=== PATIENT | female | born 1945 | race Caucasian/White ===

== ENCOUNTER → 2016-09-05 | Outpatient (CLI) | payer OTHER ==
[2015-02-01 11:30] VITALS: BP 138/66
[~2016-09-05] MED LIST: ALBU8.5H6 INH; AMLO10TA2 PO; ASPI-482 PO; ASPI81TA2 PO; ATOR40TA59 PO; BENZ100C2 PO; CALC-507 PO; CYCL10TA2 PO; CYCL5TAB PO; DULO60CA44 PO; DULO60CA6 PO; EZET1TAB4 PO; FEXO180T81 PO; FISH1CAP PO; FOLI1TAB16 PO; FURO20TA3 PO; GABA-585 PO; GLYB5TAB3 PO; GUAI600T38 PO; HYDR-2762 PO; HYDR-971 PO; INSU100I17 SQ; INSU100V13 SQ; INSU100V8 SQ; LABE100T3 PO; LEVO500T8 PO; LOSA1TAB17 PO; METF500T4 PO; MULT-509 PO; OMEG-33 PO; OXYB5TAB7 PO
--- NOTE | 2016-09-05 15:05 | RAD ---
PROCEDURE MRI lumbar spine without contrast. HISTORY Increasing back pain with bilateral radiculopathy for 3 months TECHNIQUE Multiplanar, multi sequential non contrast MR imaging was performed of the lumbar spine. COMPARISON October 14, 2014 FINDINGS Lumbar vertebral body stature is unchanged. There is now grade 1 anterior spondylolisthesis at L3-4. There is very minimal posterior subluxation L1 relative to L2 and negligible posterior subluxation L2 relative to L3. There is again advanced degenerative disc disease at L4-5 and to a lesser degree at L5-S1, somewhat greater degree of moderate degenerative disc disease at L3-4 to a lesser degree at L2-3 and L1-2. Conus terminates at L1. There is new mild L3-4 endplate edema and minimally of the superior, posterior corner of L3 probably reactive/degenerative in etiology. There is very mild lumbar levoscoliosis. T12-L1: Spinal canal and neural foramina are adequate. There is mild buckling of the ligamentum flavum. L1-2: There is again disc osteophyte complex more eccentric into the far left lateral recess and inferior left neural foramina also posterior bulge. There is mild to moderate buckling of the ligamentum flavum and mild facet hypertrophic change. There is overall mild to moderate narrowing of the spinal canal with left greater than right lateral recess stenosis. There is likely mild narrowing of the left neural foramen, right neural foramen overall adequate. L2-L3: There is fairly severe buckling of the ligamentum flavum and mild to moderate facet degenerative change. There is more prominent posterior bulge/protrusion. There is increased severe spinal stenosis with near complete effacement of subarachnoid space. Neural foramina are overall adequate. L3-4: There has been interval posterior decompression. There is moderate facet hypertrophic change greater on the right. There is posterior bulge/protrusion. Previously there was a greater degree of spinal stenosis, residual mild to moderate narrowing of the thecal sac. There is mild narrowing of the inferior neural foramina. L4-5: There has been interval posterior decompression. There is minimal posterior bulge. There is mild narrowing of the far lateral recesses bilaterally, central canal now adequate. There is very minimal narrowing of the inferior neural foramina. L5-S1: There has been posterior decompression. There is again disc osteophyte complex and superimposed broad bulge/protrusion. There is again contact of the descending left S1 nerve root without displacement. There is again moderate narrowing of the left neural foramen with contact undersurface exiting left L5 nerve root, mild narrowing on the right. IMPRESSION 1. Comparing with the 2015 exam, there is increased severe spinal stenosis L2-3, mild to moderate spinal stenosis at L1-L2. There has been posterior decompression L3-4 to L5-S1. 2. There is multilevel neural foramina compromise as stated greatest on the left at L5-S1. 3. There is now grade 1 anterior spondylolisthesis at L3-4, minimal posterior subluxation L1 relative to L2 and L2 relative to L3. There is multilevel lumbar facet degenerative change. 4. There is again more advanced degenerative disc disease at L4-5 and to a lesser degree at L5-S1. There is greater degree of moderate degenerative disc disease at L3-4, to a lesser degree at L1-L2 and L2-3. L3-4 endplate edema is likely reactive/degenerative in etiology. Electronically signed by: Emile Bledsoe MD (September 05, 2016 15:03:28)
== END | disposition home or self-care (01) ==
LOC: MRI 13:39
PROVIDERS: ATTEND Internal Medicine
DX: M48.06 Spinal stenosis, lumbar region (principal); M54.9 Dorsalgia, unspecified; M54.30 Sciatica, unspecified side
CPT/HCPCS: 72148

== ENCOUNTER 2016-09-13 17:00 | Inpatient (IN) | payer OTHER ==
[~2016-09-13] VITALS: Ht 144.8 cm; Wt 77.3 kg
[2016-09-13] MEDS ORDERED: IV NORMAL SALINE 1000ML BAG 1,000 ML IV SCH (17:20)
[2016-09-13 17:30] LABS: BASO # 0.1 x10^3/uL (0.0-0.2); BASO % 1 % (0-3); EOS % 2 % (0-3); HEMATOCRIT 39.1 % (36.0-47.0); HEMOGLOBIN 13.3 g/dL (12.0-15.5); LYMPH # 1.7 x10^3/uL (1.0-4.8); LYMPH % 20 % (24-48); MEAN CORPUSCULAR HEMOGLOBIN 33 pg (25-35); MEAN CORPUSCULAR HGB CONC 34 g/dL (31-37); MEAN CORPUSCULAR VOLUME 97 fL (79-100); MONO % 8 % (0-9); NEUT % 69 % (31-73); PLATELET COUNT 266 x10^3/uL (140-400); RED BLOOD COUNT 4.05 x10^6/uL (3.50-5.40); RED CELL DISTRIBUTION WIDTH 14.9 % (11.5-14.5); WHITE BLOOD COUNT 8.5 x10^3/uL (4.0-11.0)
[2016-09-13] MEDS ORDERED: 0.9 % SODIUM CHLORIDE 10 ML DISP.SYRIN. IV PRN (17:30)
[2016-09-13 17:43] LABS: CALCIUM 9.5 mg/dL (8.5-10.1); CREATININE 1.6 mg/dL (0.6-1.0); GFR 31.7; POTASSIUM 3.7 mmol/L (3.5-5.1)
[2016-09-13 17:49] LABS: ALBUMIN 3.6 g/dL (3.4-5.0); TOTAL BILIRUBIN 0.7 mg/dL (0.2-1.0); TOTAL PROTEIN 7.1 g/dL (6.4-8.2)
--- NOTE | 2016-09-13 18:04 | RAD ---
PROCEDURE CT head without contrast dated 09/13/2016. HISTORY Generalized weakness TECHNIQUE Contiguous axial imaging of the head was performed from skull base to vertex. No contrast administered.Exposure: One or more of the following individualized dose reduction techniques were utilized for this exam: 1. Automated exposure control. 2. Adjustment of the mA and/or kV according to patient size. 3. Use of iterative reconstruction technique. COMPARISON None. FINDINGS Ventricles and sulci mildly prominent for age. No midline shift or mass effect. Brain parenchyma is of normal attenuation. No hemorrhage or extra-axial collection. Posterior fossa and brainstem unremarkable. Visualized paranasal sinuses and mastoid air cells are clear. No acute calvarial abnormality. IMPRESSION - No evidence of acute intracranial abnormality. - Mild atrophy for age. Electronically signed by: Aren Cline (September 13, 2016 18:03:23)
--- NOTE | 2016-09-13 18:32 | PHYS DOC ---
Past Medical History Past Medical History: Diabetes-Type II, High Cholesterol, Hypertension, Renal Disease Past Surgical History: Appendectomy, Hysterectomy, Lumbar Laminectomy, Tonsillectomy Additional Past Surgical Histo: right foot, right rotator cuff Adult General Chief Complaint Chief Complaint: OTHER COMPLAINTS [facility] HPI This is a pleasant 71-year-old female who experienced a episode of general is weakness more in her lower extremities and upper last at about 11 PM. Patient states that she was over working in the yard as she is trying to move from her daughter's home to assisted living facility. 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 The episode only lasted about 5-10 minutes according to family there is no general seizure activity the patient was not post ictal and no bowel or bladder con's the event. Patient was lucid at the time of the event was over denying any abdominal pain chest pain or other focal neurologic problems. Patient denied from speaking vision or with sensation. Family ran the case by her primary care doctor earlier this afternoon who advised her to come to the ER for an evaluation. Patient feels back to baseline with the exception of generalized weakness. She denies any change in medications denies any serious problem with her sugars. Patient denies any fever, recent URI symptoms, recent travel, recent antibiotics, or trauma Dr. Abrams is PCP Review of Systems Review of Systems Constitutional: Complaint of generalized weakness Eyes: Denies change in visual acuity, redness, or eye pain [] HENT: Denies nasal congestion or sore throat [] Respiratory: Denies cough or shortness of breath [] Cardiovascular: No additional information not addressed in HPI [] GI: Denies abdominal pain, nausea, vomiting, bloody stools or diarrhea [] : Denies dysuria or hematuria [] Musculoskeletal: Denies back pain or joint pain [] Integument: Denies rash or skin lesions [] Neurologic: Denies headache, no focal weakness or sensory changes, changes in vision changes in speech bowel or bladder incontinence or facial changes. Patient does complain of bilateral lower extremity weakness in her legs. NIIHSS 0 Endocrine: Denies polyuria or polydipsia [] Current Medications Current Medications Current Medications Medications (Trade) Dose Ordered Sig/Reynaldo Start Time Stop Time Status Last Admin Dose Admin Sodium Chloride 1,000 ml @ 1,000 mls/hr Q1H 09/13/16 17:20 09/13/16 18:19 DC Sodium Chloride (Normal Saline Flush) 10 ml QSHIFT PRN 09/13/16 17:30 Allergies Allergies Allergies Coded Allergies Type Severity Reaction Last Updated Verified NSAIDS (Non-Steroidal Anti-Inflamma Allergy Intermediate 09/13/16 Yes aspirin Allergy Intermediate 10/17/14 Yes diphenhydramine Allergy Intermediate hives 09/13/16 Yes morphine Allergy Intermediate 10/15/14 Yes Penicillins Allergy Unknown 09/13/16 Yes Physical Exam Physical Exam Constitutional: Well developed, well nourished, no acute distress, non-toxic appearance. [] HENT: Normocephalic, atraumatic, bilateral external ears normal, oropharynx moist, no oral exudates, nose normal. [] Eyes: PERRLA, EOMI, conjunctiva normal, no discharge. [] Neck: Normal range of motion, no tenderness, supple, no stridor. [] Cardiovascular:Heart rate regular rhythm, no murmur [] Lungs & Thorax: Bilateral breath sounds clear to auscultation [] Abdomen: Bowel sounds normal, soft, no tenderness, no masses, no pulsatile masses. [] Skin: Warm, dry, no erythema, no rash. [] Back: No tenderness, no CVA tenderness. [] Extremities: No tenderness, no cyanosis, no clubbing, ROM intact, no edema. [] Neurologic: Alert and oriented X 3, normal motor function, normal sensory function, no focal deficits noted. [] Psychologic: Affect normal, judgement normal, mood normal. [] Current Patient Data Vital Signs Vital Signs Date Time Temp Pulse Resp B/P (MAP) Pulse Ox O2 Delivery O2 Flow Rate FiO2 09/13/16 17:20 98.0 78 24 196/78 (117) 96 Room Air 98.0 Lab Values Laboratory Tests Test 09/13/16 17:25 White Blood Count 8.5 x10^3/uL (4.0-11.0) Red Blood Count 4.05 x10^6/uL (3.50-5.40) Hemoglobin 13.3 g/dL (12.0-15.5) Hematocrit 39.1 % (36.0-47.0) Mean Corpuscular Volume 97 fL (79-100) Mean Corpuscular Hemoglobin 33 pg (25-35) Mean Corpuscular Hemoglobin Concent 34 g/dL (31-37) Red Cell Distribution Width 14.9 % (11.5-14.5) H Platelet Count 266 x10^3/uL (140-400) Neutrophils (%) (Auto) 69 % (31-73) Lymphocytes (%) (Auto) 20 % (24-48) L Monocytes (%) (Auto) 8 % (0-9) Eosinophils (%) (Auto) 2 % (0-3) Basophils (%) (Auto) 1 % (0-3) Neutrophils # (Auto) 5.9 x10^3uL (1.8-7.7) Lymphocytes # (Auto) 1.7 x10^3/uL (1.0-4.8) Monocytes # (Auto) 0.7 x10^3/uL (0.0-1.1) Eosinophils # (Auto) 0.2 x10^3/uL (0.0-0.7) Basophils # (Auto) 0.1 x10^3/uL (0.0-0.2) Sodium Level 143 mmol/L (136-145) Potassium Level 3.7 mmol/L (3.5-5.1) Chloride Level 103 mmol/L (98-107) Carbon Dioxide Level 29 mmol/L (21-32) Anion Gap 11 (6-14) Blood Urea Nitrogen 43 mg/dL (7-20) H Creatinine 1.6 mg/dL (0.6-1.0) H Estimated GFR (Cockcroft-Gault) 31.7 BUN/Creatinine Ratio 27 (6-20) H Glucose Level 220 mg/dL (70-99) H Calcium Level 9.5 mg/dL (8.5-10.1) Total Bilirubin 0.7 mg/dL (0.2-1.0) Aspartate Amino Transferase (AST) 34 U/L (15-37) Alanine Aminotransferase (ALT) 39 U/L (14-59) Alkaline Phosphatase 69 U/L (46-116) Total Protein 7.1 g/dL (6.4-8.2) Albumin 3.6 g/dL (3.4-5.0) Albumin/Globulin Ratio 1.0 (1.0-1.7) Laboratory Tests 09/13/16 17:25 Laboratory Tests 09/13/16 17:25 EKG EKG EKG timed 1741 09/13/2016 demonstrates normal sinus rhythm with an acid ST segment T-wave change in the inferior leads V2 V3 and aVF not clearly a STEMI but concerning for atypical changes. Possible left ventricular strain aftercare rate is 73 DC interval QRS is normal otherwise. Read by Dr. El. [] Radiology/Procedures Radiology/Procedures IMAGING REPORT Signed PATIENT: LILLIAM LUX ACCOUNT: [id number] : 1945 LOCATION: ER AGE: 71 SEX: F EXAM STATUS: REG ER ORD. PHYSICIAN: ERIN EL MD REASON: generalized weakness PROCEDURE: CT HEAD WO CONTRAST PROCEDURE CT head without contrast dated 09/13/2016. HISTORY Generalized weakness TECHNIQUE Contiguous axial imaging of the head was performed from skull base to vertex. No contrast administered.Exposure: One or more of the following individualized dose reduction techniques were utilized for this exam: 1. Automated exposure control. 2. Adjustment of the mA and/or kV according to patient size. 3. Use of iterative reconstruction technique. COMPARISON None. FINDINGS Ventricles and sulci mildly prominent for age. No midline shift or mass effect. Brain parenchyma is of normal attenuation. No hemorrhage or extra-axial collection. Posterior fossa and brainstem unremarkable. Visualized paranasal sinuses and mastoid air cells are clear. No acute calvarial abnormality. IMPRESSION - No evidence of acute intracranial abnormality. - Mild atrophy for age. Electronically signed by: Aren Cline (September 13, 2016 18:03:23) DICTATED and SIGNED BY: AREN CLINE MD DATE: 09/13/16 180 CC: ERIN EL MD; IMER ABRAMS MD ~ [] Distress date 09/13/2016 with intravenous 1749 demonstrates no cold pneumothorax , pneumonia, infiltrate, pleural effusion. There is some mild cardiomegaly noted with no cephalization no blunting of the aortic no evidence of subdiaphragmatic air or subcutaneous tissues her x-ray. Course & Med Decision Making Course & Med Decision Making Pertinent Labs and Imaging studies reviewed. (See chart for details) She presents with generalized lower extremity weakness bilaterally with no clear findings on neuro exam at this point. Patient may have suffered from a seizure, stroke, hypertension causing orthostasis, acute coronary event causing hypotension, dysrhythmia, or other systemic infection causing hypotension. At this point patient is comfortable CT is pending read as no acute findings on CT scan I radiology. Reviewed by me. [] Patient's ABCD 3 score is intermediate for possible stroke. Patient with significant risk factors despite having a negative head CT. We discussed lower back as possible source of generalized weakness and lower extremity is. 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 She has follow-up with her primary care doctor as well as her with [facility]. But given her symptoms of near-syncope I will admitted to the hospital for ultrasound of her neck and this MRI of the brain. Awaiting admission to the hospital with her primary care doctor. Dr. Abrams paged at [phone]. She returned the call at [phone]. Agrees admission. I will place orders in for an MRI the brain or some of the carotids and neurology evaluation. Impression: Near syncopal, possible TIA, renal insufficiency, hypertension, history of diabetes. Disposition: Admission to the hospital Dragon Disclaimer Dragon Disclaimer This electronic medical record was generated, in whole or in part, using a voice recognition dictation system. Departure Departure Impression: Primary Impression: Transient ischemic attack (TIA) Additional Impression: Generalized weakness Disposition: ADMITTED INPATIENT Admitting Physician: Imer Abrams Condition: GUARDED Referrals: IMER ABRAMS MD (PCP) Problem Qualifiers ERIN EL MD September 13, 2016 18:32
[2016-09-13] MEDS ORDERED: ACETAMINOPHEN 325 MG TABLET. PO PRN (19:15)
[2016-09-13] MEDS ORDERED: ONDANSETRON PF 4 MG/2 ML VIAL. IV PRN (19:15)
[2016-09-13 20:35] VITALS: BP 185/65
[2016-09-13 21:01] LABS: BILIRUBIN,URINE NEGATIVE (NEG); GLUCOSE,URINE NEGATIVE (NEG); NITRITE,URINE NEGATIVE (NEG); PROTEIN,URINE NEGATIVE (NEG-TRACE); UROBILINOGEN,URINE 0.2 mg/dL (0.2 mg/dL)
[2016-09-13 21:07] LABS: BACTERIA,URINE 0 /HPF (0-FEW); RBC,URINE 0 /HPF (0-2)
[2016-09-13] MEDS ORDERED: HYDR1TAB12 PO (22:06)
[2016-09-13] MEDS ORDERED: INSU100V13 SQ (22:06)
[2016-09-13 23:20] VITALS: BP 131/50
[2016-09-14 03:25] VITALS: BP 178/64
[2016-09-14] MEDS ORDERED: HYDROcodone/APAP 7.5/325MG 1 TAB TABLET PO PRN (04:45)
[2016-09-14] MEDS: HYDROcodone/APAP 7.5/325MG 1 TAB TABLET PO PRN ×2 (04:53→21:04)
--- NOTE | 2016-09-14 06:16 | EKG ---
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
[2016-09-14 07:00] VITALS: BP 179/65
--- NOTE | 2016-09-14 08:02 | RAD ---
AP chest, 09/13/2016: History: Generalized weakness Comparison is made to a study from 10/18/2014. The heart is at the upper limits of normal in size. The pulmonary vascularity is normal. No pulmonary infiltrates are seen. There is no evidence of pleural fluid. IMPRESSION: No acute cardiopulmonary abnormality is detected.
--- NOTE | 2016-09-14 09:28 | PDOC ---
OBJECTIVE Vital Signs Vital Signs Date Time Temp Pulse Resp B/P (MAP) Pulse Ox O2 Delivery O2 Flow Rate FiO2 09/14/16 07:00 97.8 62 20 179/65 (103) 92 Room Air 97.8 09/14/16 03:25 97.7 77 18 178/64 (102) 96 Room Air 97.7 09/13/16 23:20 97.7 72 18 131/50 (77) 95 Room Air 97.7 09/13/16 21:00 Room Air 09/13/16 20:35 97.9 71 18 185/65 (105) 96 Room Air 97.9 09/13/16 20:05 70 30 141/73 (95) 94 09/13/16 19:35 68 163/70 (101) 89 09/13/16 19:05 76 140/58 (85) 92 09/13/16 18:35 74 137/51 (79) 91 Room Air 09/13/16 17:20 98.0 78 24 196/78 (117) 96 Room Air 98.0 I & O Intake and Output 09/14/16 07:00 Intake Total 1500 ml Output Total 950 ml Balance 550 ml Intake Oral 500 ml IV Total 1000 ml Output Urine Total 950 ml ASSESSMENT/PLAN Assessment/Plan [id number] H&P dictated weakness lower ext likely due to neuropathy and spinal stenosis, question of hypoglycemia, agree with neuroconsult will ask PT to eval and treat, check safety and balance, agree with work up Problems: COMMENT Lab Laboratory Tests Test 09/13/16 17:25 09/13/16 20:35 09/14/16 01:00 09/14/16 07:14 White Blood Count 8.5 x10^3/uL (4.0-11.0) Red Blood Count 4.05 x10^6/uL (3.50-5.40) Hemoglobin 13.3 g/dL (12.0-15.5) Hematocrit 39.1 % (36.0-47.0) Mean Corpuscular Volume 97 fL (79-100) Mean Corpuscular Hemoglobin 33 pg (25-35) Mean Corpuscular Hemoglobin Concent 34 g/dL (31-37) Red Cell Distribution Width 14.9 % (11.5-14.5) Platelet Count 266 x10^3/uL (140-400) Neutrophils (%) (Auto) 69 % (31-73) Lymphocytes (%) (Auto) 20 % (24-48) Monocytes (%) (Auto) 8 % (0-9) Eosinophils (%) (Auto) 2 % (0-3) Basophils (%) (Auto) 1 % (0-3) Neutrophils # (Auto) 5.9 x10^3uL (1.8-7.7) Lymphocytes # (Auto) 1.7 x10^3/uL (1.0-4.8) Monocytes # (Auto) 0.7 x10^3/uL (0.0-1.1) Eosinophils # (Auto) 0.2 x10^3/uL (0.0-0.7) Basophils # (Auto) 0.1 x10^3/uL (0.0-0.2) Sodium Level 143 mmol/L (136-145) Potassium Level 3.7 mmol/L (3.5-5.1) Chloride Level 103 mmol/L (98-107) Carbon Dioxide Level 29 mmol/L (21-32) Anion Gap 11 (6-14) Blood Urea Nitrogen 43 mg/dL (7-20) Creatinine 1.6 mg/dL (0.6-1.0) Estimated GFR (Cockcroft-Gault) 31.7 BUN/Creatinine Ratio 27 (6-20) Glucose Level 220 mg/dL (70-99) Calcium Level 9.5 mg/dL (8.5-10.1) Total Bilirubin 0.7 mg/dL (0.2-1.0) Aspartate Amino Transf (AST/SGOT) 34 U/L (15-37) Alanine Aminotransferase (ALT/SGPT) 39 U/L (14-59) Alkaline Phosphatase 69 U/L (46-116) Total Protein 7.1 g/dL (6.4-8.2) Albumin 3.6 g/dL (3.4-5.0) Albumin/Globulin Ratio 1.0 (1.0-1.7) Urine Collection Type Unknown Urine Color Yellow Urine Clarity Clear Urine pH 5.0 Urine Specific Ponce 1.010 Urine Protein Negative mg/dL (NEG-TRACE) Urine Glucose (UA) Negative mg/dL (NEG) Urine Ketones (Stick) Negative mg/dL (NEG) Urine Blood Negative (NEG) Urine Nitrite Negative (NEG) Urine Bilirubin Negative (NEG) Urine Urobilinogen Dipstick 0.2 mg/dL (0.2 mg/dL) Urine Leukocyte Esterase Large (NEG) Urine RBC 0 /HPF (0-2) Urine WBC 11-20 /HPF (0-4) Urine Bacteria 0 /HPF (0-FEW) Urine Hyaline Casts Few /HPF Troponin I Quantitative < 0.017 ng/mL (0.000-0.055) < 0.017 ng/mL (0.000-0.055) Test 09/14/16 08:00 Glucose (Fingerstick) 120 mg/dL (70-99) IMER ABRAMS MD September 14, 2016 09:28
--- NOTE | 2016-09-14 10:09 | ACF ---
Admit Criteria Forms Admit Criteria Forms Admit Criteria Forms TRANSIENT ISCHEMIC ATTACK (TIA) Clinical Indications for Admission to Inpatient Care (Place 'X' for any and all applicable criteria): Admission is indicated for ANY ONE of the following(1)(2)(3)(4)(5): [ ]I. Immediate inpatient procedure is needed (eg, endarterectomy). [X ]II. Inpatient admission required rather than observation care (Also use Transient Ischemic Attack (TIA): Observation Care Criteria as appropriate) because of ANY ONE of the following: [ ]a) Focal neurologic signs or symptoms persist or recurring [ ]b) Cardiac arrhythmias of immediate concern [ ]c) Clinically significant cardiac disorder identified that requires inpatient care (eg, severe valvular disease, atrial myxoma, cardiomyopathy) [ ]d) Hypertension requiring inpatient treatment [ ]e) Parenteral anticoagulation required (eg, alternative forms of anticoagulation not appropriate or not feasible) as indicated by ALL of the following(13): [ ]i) Temporary subtherapeutic anticoagulation unacceptable because of high risk of short-term venous or arterial thromboembolism due to ANY ONE of the following(14)(15)(16): [ ]1) Atrial fibrillation suspected as etiology of TIA(17)(18)(19)(20)(21) [ ]2) Venous thromboembolism within past 12 months [ ]3) Underlying malignancy [ ]4) Patient with mechanical cardiac valve(22)( 23) [ ]5) Underlying hypercoagulable state (eg, protein C or protein S deficiency antithrombin deficiency, antiphospholipid antibodies) [ ]6) Patient at temporary high risk of thromboembolism (eg, status post orthopedic surgery) [ ]ii) Contraindications to outpatient use of "bridging" agent or alternative oral anticoagulant[B] as indicated by ALL of the following: [ ]1) Contraindication to outpatient use of low- molecular-weight heparin as "bridging" agent as indicated by ANY ONE of the following(15): [ ]A. Documented current or history of heparin-induced thrombocytopenia(24) [ ]B. Severe thrombocytopenia (eg, platelet count less than 50,000/mm3 (67d942/L) [ ]C. Documented allergy to heparin, low- molecular-weight heparin, or pork products [ ]D. Renal failure (creatinine clearance less than 30 mL/min/1.73m2 (0.50mL/sec/1.73m2) or on dialysis) [ ]E. Inability to manage self-injection ( eg, by patient, caregiver, or visiting nurse) [ ]2) Contraindication to outpatient use of fondaparinux as "bridging" agent as indicated by ANY ONE of the following(25)(26 )(27)(28): [ ]A. Severe thrombocytopenia (eg, platelet count less than 50,000/mm3 (50 x109/L)) [ ]B.Hypersensitivity to fondaparinux, related drugs, or product components [ ]C.Renal failure (creatinine clearance less than 30 mL/min/1.73m2 (0.50mL/sec/1.73m2) or on dialysis) [ ]D.Inability to manage self-injection ( eg, by patient, caregiver, or visiting nurse [ ]3. Oral direct thrombin inhibitor (eg, dabigatran) or oral coagulation factor Xa inhibitor (eg, rivaroxaban, apixaban) not appropriate as oral anticoagulation (eg, indication not appropriate) or contraindicated (eg, hypersensitivity, creatinine clearance less than 15 mL/min/1.73m2 ( 0.25 mL/sec/1.73m2) or on dialysis). [ ]f) Continuous IV infusion of anticoagulant, platelet inhibitor, vasoactive or antiarrhythmia(18)(19) [X ]g) Other condition, treatment, or monitoring requiring inpatient admission [ ]III. Contraindications and/or Inappropriate clinical situations for Observational Care in patients with Transient Ischemic Attack (TIA), when ANY ONE of the following is required: [ ]a) Patient with persistent or severe neurological deficit 24 [ ]b) Patient with acute CVA or other identified pathology should be admitted to inpatient for further care 25 [X ]IV. General contraindications and/or Inappropriate clinical situations for Observational Care in patients with Transient Ischemic Attack (TIA), when ANY ONE of the following is required: [X ]a) Prediction of prolongation of LOS based on ANY ONE of the following may be considered as a contraindication for observational care 2, 3, 4, 5, 6, 7, 8, 9, 10, 11 [X ]i) Age > 65 yrs. [ ]ii) Patient arriving by ambulance [ ]iii) Patient with high acuity [ ]iv) Patient requiring vital sign monitoring [ ]v) Patient on IV medication [ ]b) Systolic blood pressures 180mmHg 3,12 [ ]c) Patient with altered mental status including delirium and other alteration of consciousness, (3) [ ]d) Patient whose discharge disposition will be to a assisted home or rehabilitation home should not be managed in Emergency Department Observation Unit. CMS rule requires 3 days hospital stay before such placement.3,13 [ ]e) Patient with failure to thrive due to broad array of etiologies 3,16,17 [ ]f) Inability to ambulate 3,14 Extended stay beyond goal length of stay may be needed for(4)(30)(32): [ ]a) Parenteral anticoagulation required [ ]b) Dangerous arrhythmia [ ]c) Cardiac valvular disorder, atrial myxoma, cardiomyopathy [ ]d) Uncontrolled severe hypertension [ ]e) Severe carotid stenosis [ ]f) Active comorbidities (eg, heart failure) [ ]g) Extracranial vertebrobasilar disease(29) [ ]h) Clinical evolution of TIA into cerebrovascular accident (stroke) The original [email or web address] content created by [employer] has been revised. The portions of thecontent which have been revised are identified through the use of italic text or in bold, and [facility] has neither reviewed nor approved the modified material. All other unmodified content is copyright [email or web address]. Please see references footnoted in the original [email or web address] edition 2016 BETZY ALVA September 14, 2016 10:09
[2016-09-14] MEDS: DULoxetine HCL 30 MG CAPSULE.DR PO SCH (10:42)
[2016-09-14] MEDS: LOSARTAN POTASSIUM 50 MG TABLET. PO SCH (10:42)
[2016-09-14] MEDS: FUROSEMIDE 20 MG TABLET PO SCH (10:42)
[2016-09-14] MEDS: metFORMIN 500 MG TABLET PO SCH ×2 (10:43→17:36)
[2016-09-14] MEDS: LABETALOL HCL 100 MG TABLET. PO SCH ×2 (10:43→21:00)
[2016-09-14] MEDS: ASPIRIN ENTERIC COATED 81 MG TABLET.DR. PO SCH ×2 (10:43→17:36)
[2016-09-14] MEDS: hydroCHLOROthiazide 25 MG TABLET PO SCH (10:43)
[2016-09-14] MEDS: CYCLOBENZAPRINE 10 MG TABLET. PO SCH ×2 (10:43→21:01)
[2016-09-14] MEDS: GABAPENTIN 100 MG CAPSULE. PO SCH ×3 (10:43→21:00)
[2016-09-14] MEDS: FOLIC ACID 1 MG TABLET. PO SCH ×2 (10:44→21:01)
[2016-09-14 11:00] VITALS: BP 180/64
--- NOTE | 2016-09-14 11:28 | PREOP HP ---
DATE OF SERVICE: She is in room 672. HISTORY OF PRESENT ILLNESS: The patient is a 71-year-old lady who presented to the Emergency Room with a complaint that she is experiencing episodes of weakness especially in her lower extremities. She apparently the day before presentation was working in her old home in the yard ____ leaves and cleaning the backyard. She was working all day and had only water, did not eat anything. By the time, she got to her daughter's home where she is currently residing, she was fixing herself with salad and felt very weak and her legs were shaky, could not hold herself, dropped the bowl and broke it when she turned around. She then felt very hungry and had some soup and went to bed. The next morning was feeling better, but she was still feeling very weak. Her barrel rifler hook was weak and her lower extremities were weak. She did not act or ____ with the family and when they contacted the office, they were told to come to the Emergency Room. She denied having any changes in her speech or vision. Denies confusion or change in mental status. She was weak in both her lower extremities and upper extremities and mostly her upper extremities. She did not have a trauma or fall when she dropped the bowl, but she was very ____ and felt very bad. She stated that her sugar when she got home was about 400. She had taken some insulin and was fixing her food and when this episode happened, her sugar was down to 180, but she did not have any documented low blood sugar. PAST MEDICAL HISTORY: Significant for diabetes mellitus type 2, insulin requiring, diastolic congestive heart failure, hyperlipidemia, hypertension, sleep apnea, colon polyps, hemorrhoids, appendicitis, appendectomy, tonsillectomy, peripheral neuropathy, gastroesophageal reflux disease, partial hysterectomy, chronic kidney disease, osteoarthritis, and chronic back pain. She has had back surgery and most recently had another MRI that shows increasing spinal stenosis in her lumbar spine. She also has carpal tunnel syndrome and had surgery for that. She had rotator cuff surgery, depression, anxiety. FAMILY HISTORY: Positive for diabetes, hypertension. SOCIAL HISTORY: She does not smoke or drink alcohol. She is living currently with her daughter, but is in the process of moving to assisted living place. She was cleaning her own place and trying to move her things to the assisted living place that she will be moving to in the next month or so. REVIEW OF SYSTEMS: CONSTITUTIONAL: She does have generalized weakness. Denies fever or chills. EYES: Denies visual changes. Denies eye drainage, redness or eye pain. HEENT: Denies nasal congestion or sore throat. RESPIRATORY: Denies cough or shortness of breath. CARDIOVASCULAR: No chest pain or edema in the lower extremities. No shortness of breath. GASTROINTESTINAL: No abdominal pain, nausea or vomiting. GENITOURINARY: She does have stress incontinence. MUSCULOSKELETAL: She has chronic back pain. Most recently, she had MRI of the lumbar spine recently showing increasing spinal stenosis and she does have an appointment with ____ coming up. NEUROLOGIC: She does not have any focal weakness at present time, does not have any changes in her speech, vision. She has no incontinence of bladder or stool. Her strength in the lower extremity on exam is equal bilaterally as well as in the upper extremities. ALLERGIES: SHE IS ALLERGIC TO ASPIRIN, MORPHINE, PENICILLIN, AND DIPHENHYDRAMINE. PHYSICAL EXAMINATION: GENERAL: She is alert and oriented, in no acute distress, cooperative. HEENT: Tympanic membranes clear. Pharynx clear. No sinus tenderness. NECK: Supple, no JVD or bruit or cervical adenopathy. LUNGS: Clear to auscultation. HEART: Regular rate and rhythm. ABDOMEN: Soft, nontender, no organomegaly, no masses, no bruits, no ascites. EXTREMITIES: No edema, clubbing or cyanosis. NEUROLOGICAL: She is alert and oriented. Her cranial nerves are intact. Motor function and sensory function appears to be normal. LABORATORY DATA: CT scan of the head was negative. Blood sugar in the Emergency Room was 220. Kidney function with BUN and creatinine 43 and 1.6 respectively, which is her baseline. IMPRESSION: 1. Episodes of lower extremity weakness doubt that this represent any CVA probably related to her back pain, spinal stenosis and peripheral neuropathy due to the spinal stenosis as well as diabetes mellitus. 2. Diabetes mellitus type 2. 3. Hypertension, hypertensive cardiovascular disease. 4. Hyperlipidemia. 5. Diastolic congestive heart failure, stable. 6. Other diagnoses as per H and P. IMER ABRAMS MD DR: ASUNCION/dominique JOB#: [id number] / [id number]
--- NOTE | 2016-09-14 11:29 | PDOC2 ---
NEUROLOGY CONSULT Date of Admission Date of Admission DATE: 09/14/16 TIME: 11:19 Reason for Consult Reason for Consult: Syncope, possible transient ischemic attack Referring Physician Referring Physician: Dr. Burgess Source Source: Chart review, Patient History of Present Illness History of Present Illness The patient is a 71-year-old right-handed female who was preparing a salad after being out in the yard and turned and felt dizzy, lightheaded, felt her legs weak and shaky, drop a salad bowl, and St. to the floor. She says that she never lost consciousness and there was no convulsive activity, tongue biting, incontinence, focal numbness, weakness, dysarthria, dysphagia, diplopia, visual changes, cognitive change, or headache. She feels fine now. Her daughter checked with the primary physician's office next day and was advised to take the patient to the emergency room where she was admitted. The patient has been dealing with lumbar spinal stenosis. She had surgery last year and has been living with her daughter ever since rehabilitation. They tend to but heads and argue a lot, the patient says. She is stressed out by this situation. Because of continued back pain she had a follow-up MRI as reviewed below and is scheduled to see her surgeon, Dr. Maya. There is no history of stroke, seizure, or head injury. Past Medical History Cardiovascular: CAD, CHF, HTN, Hyperlipidemia Pulmonary: Other (sleep apnea) CENTRAL NERVOUS SYSTEM: Periperal neuropathy GI: Constipation, Hemorrhoids, Inflam bowel disease (Crohn's disease), Other ( diarrhea) Psych: Anxiety, Depression Musculoskeletal: low back pain (lumbar spinal stenosis), Osteoarthritis Renal/: Chronic renal insuff Endocrine: Diabetes Past Surgical History Past Surgical History: Appendectomy, Cataract Removal, Tonsillectomy, Hysterectomy, Colon Resection, Other (breast surgery, carpal tunnel surgery, right toe screw, right rotator cuff, lumbar fusion) Family History Family History: Cancer Social History Social History , lives with daughter, no alcohol or tobacco Current Medications Current Medications Current Medications Sodium Chloride (Normal Saline Flush) 10 ml QSHIFT PRN IV AFTER MEDS AND BLOOD DRAWS Last administered on 09/13/16 19:07; Start 09/13/16 at 17:30 Sodium Chloride 1,000 ml @ 1,000 mls/hr Q1H IV Last administered on 09/13/16 19:07; Start 09/13/16 at 17:20; Stop 09/13/16 at 18:19; Status DC Ondansetron HCl (Zofran) 4 mg PRN Q8HRS PRN IV NAUSEA/VOMITING; Start 09/13/16 at 19:15; Stop 09/14/16 at 19:14 Acetaminophen (Tylenol) 650 mg PRN Q4HRS PRN PO FEVER Last administered on 09/13 20:01; Start 09/13/16 at 19:15; Stop 09/14/16 at 19:14 Acetaminophen/ Hydrocodone Bitart (Lortab 7.5/325) 1 tab PRN Q6HRS PRN PO PAIN Last administered on 09/14/16 04:53; Start 09/14/16 at 04:45 Acetaminophen/ Hydrocodone Bitart (Lortab 7.5/325) 2 tab PRN Q6HRS PRN PO PAIN ; Start 09/14/16 at 04:45 Amlodipine Besylate (Norvasc) 5 mg QHS PO ; Start 09/14/16 at 21:00 Aspirin (Ecotrin) 81 mg BIDWMEALS PO Last administered on 09/14/16 10:43; Start 09/14/16 at 10:00 Atorvastatin Calcium (Lipitor) 40 mg QHS PO ; Start 09/14/16 at 21:00 Cyclobenzaprine HCl (Flexeril) 10 mg BID PO Last administered on 09/14/16 10: 43; Start 09/14/16 at 10:00 Folic Acid (Folic Acid) 1 mg BID PO Last administered on 09/14/16 10:44; Start 09/14/16 at 10:00 Furosemide (Lasix) 20 mg DAILY PO Last administered on 09/14/16 10:42; Start 09/14/16 at 10:00 Gabapentin (Neurontin) 100 mg TID PO Last administered on 09/14/16 10:43; Start 09/14/16 at 10:00 Insulin Aspart (NovoLOG) 10 units DAILYBFRSUP SQ ; Start 09/14/16 at 17:00 Labetalol HCl (Trandate) 100 mg BID PO Last administered on 09/14/16 10:43; Start 09/14/16 at 10:00 Metformin HCl (Glucophage) 500 mg BIDWMEALS PO Last administered on 09/14/16 10:43; Start 09/14/16 at 10:00 Oxybutynin Chloride (Ditropan) 10 mg HS PO ; Start 09/14/16 at 21:00 Duloxetine HCl (Cymbalta) 60 mg DAILY PO Last administered on 09/14/16 10:42; Start 09/14/16 at 10:00 Insulin Detemir (Levemir) 40 units QHS SQ ; Start 09/14/16 at 21:00 Losartan Potassium (Cozaar) 100 mg DAILY PO Last administered on 09/14/16 10: 42; Start 09/14/16 at 10:00 Hydrochlorothiazide (Hydrodiuril) 25 mg DAILY PO Last administered on 10:43; Start 09/14/16 at 10:00 Active Scripts Active Reported Vicodin 5-300 Mg Tablet (Hydrocodone Bit/Acetaminophen) 1 Each Tablet 1 Each PO Q4H PRN Levemir (Insulin Detemir) 100 Unit/1 Ml Vial 40 Unit SQ HS Folic Acid 1 Mg Tablet 1 Tab PO BID Metformin Hcl 500 Mg Tablet 1 Tab PO BID Novolog Flexpen (Insulin Aspart) 100 Unit/1 Ml Insuln.pen 10 Unit SQ DAILYBFRSUP Fish Oil 1,200 Mg Fish Oil (Fish Oil/Dha/Epa) 1 Each Capsule 2 Each PO DAILY Calcium 600 + D Tablet (Calcium Carbonate/Vitamin D3) 1 Each Tablet 1 Each PO DAILY Complete Multivitamin (Multivits,Th W-Fe,Other Min) 1 Each Tablet 1 Each PO DAILY Cyclobenzaprine Hcl 10 Mg Tablet 1 Tab PO BID Oxybutynin Chloride 5 Mg Tablet 2 Tab PO HS Atorvastatin Calcium 40 Mg Tablet 1 Tab PO QHS Amlodipine Besylate 10 Mg Tablet 0.5 Tab PO HS Losartan-Hctz 100-25 Mg Tab (Losartan/Hydrochlorothiazide) 1 Each Tablet 1 Tab PO DAILY Furosemide 20 Mg Tablet 1 Tab PO DAILY Duloxetine Hcl 60 Mg Capsule.dr 60 Mg PO DAILY Maribell Allergy (Fexofenadine Hcl) 180 Mg Tablet 1 Tab PO DAILY Aspirin 81 Mg Tab.chew 1 Tab PO BID Labetalol Hcl 100 Mg Tablet 1 Tab PO BID Gabapentin 100 Mg Capsule 1 Cap PO TID Allergies Allergies: Coded Allergies: NSAIDS (Non-Steroidal Anti-Inflamma (Verified Allergy, Intermediate, ) Tried several. Allergic to all aspirin (Verified Allergy, Intermediate, 10/17/14) upsets stomach diphenhydramine (Verified Allergy, Intermediate, hives, 09/13/16) morphine (Verified Allergy, Intermediate, 10/15/14) Penicillins (Verified Allergy, Unknown, 09/13/16) don't work ROS Review of System Patient denies fevers, chills, weight loss, dyspnea, angina, abdominal pain, change in bowels, or dysuria. 14 point review of systems is negative. Physical Exam Physical Examination PHYSICAL EXAMINATION: Vital signs: see above. General appearance is normal and in no acute distress. HEENT: Normocephalic and nontraumatic. Eyes, nose, ears, and throat are unremarkable. Neck is supple. No lymphadenopathy. No bruits are heard over the carotid artery. No crepitus. NEUROLOGICAL EXAMINATION: Mental Status Examination: Alert. Oriented to time, place, and person. Answers questions and follows commends. Pupils are equal round and reactive to light and accommodation. Funduscopic exam: No papilledema. Extraocular movements are intact. Visual field exam shows no defect on the direct confrontation. No motor or sensory deficits on the facial exam. Uvula in the midline and the soft palate elevated symmetrically. No deviation of the tongue to any direction. Gross hearing is normal. Shoulder shrug normal. Muscle tone is normal. Muscle strength is 5. Deep tendon reflexes are 0+ all around. Plantar reflex is with flexion response bilaterally. Ejjkfc-os-[id number] test performance is accurate. Tandem walk test is accurate. Alternative movements are accurate. Romberg test is negative. Gait arthritic, antalgic. Sensory exam shows stocking loss. No cerebellar signs are elicited. Vitals VITALS Vital Signs Date Time Temp Pulse Resp B/P (MAP) Pulse Ox O2 Delivery O2 Flow Rate FiO2 09/14/16 11:00 98.1 73 18 180/64 (102) 95 Room Air 98.1 Labs Labs Laboratory Tests Test 09/13/16 17:25 09/13/16 20:35 09/14/16 01:00 09/14/16 07:14 White Blood Count 8.5 x10^3/uL (4.0-11.0) Red Blood Count 4.05 x10^6/uL (3.50-5.40) Hemoglobin 13.3 g/dL (12.0-15.5) Hematocrit 39.1 % (36.0-47.0) Mean Corpuscular Volume 97 fL (79-100) Mean Corpuscular Hemoglobin 33 pg (25-35) Mean Corpuscular Hemoglobin Concent 34 g/dL (31-37) Red Cell Distribution Width 14.9 % (11.5-14.5) Platelet Count 266 x10^3/uL (140-400) Neutrophils (%) (Auto) 69 % (31-73) Lymphocytes (%) (Auto) 20 % (24-48) Monocytes (%) (Auto) 8 % (0-9) Eosinophils (%) (Auto) 2 % (0-3) Basophils (%) (Auto) 1 % (0-3) Neutrophils # (Auto) 5.9 x10^3uL (1.8-7.7) Lymphocytes # (Auto) 1.7 x10^3/uL (1.0-4.8) Monocytes # (Auto) 0.7 x10^3/uL (0.0-1.1) Eosinophils # (Auto) 0.2 x10^3/uL (0.0-0.7) Basophils # (Auto) 0.1 x10^3/uL (0.0-0.2) Sodium Level 143 mmol/L (136-145) Potassium Level 3.7 mmol/L (3.5-5.1) Chloride Level 103 mmol/L (98-107) Carbon Dioxide Level 29 mmol/L (21-32) Anion Gap 11 (6-14) Blood Urea Nitrogen 43 mg/dL (7-20) Creatinine 1.6 mg/dL (0.6-1.0) Estimated GFR (Cockcroft-Gault) 31.7 BUN/Creatinine Ratio 27 (6-20) Glucose Level 220 mg/dL (70-99) Calcium Level 9.5 mg/dL (8.5-10.1) Total Bilirubin 0.7 mg/dL (0.2-1.0) Aspartate Amino Transf (AST/SGOT) 34 U/L (15-37) Alanine Aminotransferase (ALT/SGPT) 39 U/L (14-59) Alkaline Phosphatase 69 U/L (46-116) Total Protein 7.1 g/dL (6.4-8.2) Albumin 3.6 g/dL (3.4-5.0) Albumin/Globulin Ratio 1.0 (1.0-1.7) Urine Collection Type Unknown Urine Color Yellow Urine Clarity Clear Urine pH 5.0 Urine Specific [place] 1.010 Urine Protein Negative mg/dL (NEG-TRACE) Urine Glucose (UA) Negative mg/dL (NEG) Urine Ketones (Stick) Negative mg/dL (NEG) Urine Blood Negative (NEG) Urine Nitrite Negative (NEG) Urine Bilirubin Negative (NEG) Urine Urobilinogen Dipstick 0.2 mg/dL (0.2 mg/dL) Urine Leukocyte Esterase Large (NEG) Urine RBC 0 /HPF (0-2) Urine WBC 11-20 /HPF (0-4) Urine Bacteria 0 /HPF (0-FEW) Urine Hyaline Casts Few /HPF Troponin I Quantitative < 0.017 ng/mL (0.000-0.055) < 0.017 ng/mL (0.000-0.055) Test 09/14/16 08:00 Glucose (Fingerstick) 120 mg/dL (70-99) Laboratory Tests Test 09/13/16 17:25 09/13/16 20:35 09/14/16 01:00 09/14/16 07:14 White Blood Count 8.5 x10^3/uL (4.0-11.0) Red Blood Count 4.05 x10^6/uL (3.50-5.40) Hemoglobin 13.3 g/dL (12.0-15.5) Hematocrit 39.1 % (36.0-47.0) Mean Corpuscular Volume 97 fL (79-100) Mean Corpuscular Hemoglobin 33 pg (25-35) Mean Corpuscular Hemoglobin Concent 34 g/dL (31-37) Red Cell Distribution Width 14.9 % (11.5-14.5) Platelet Count 266 x10^3/uL (140-400) Neutrophils (%) (Auto) 69 % (31-73) Lymphocytes (%) (Auto) 20 % (24-48) Monocytes (%) (Auto) 8 % (0-9) Eosinophils (%) (Auto) 2 % (0-3) Basophils (%) (Auto) 1 % (0-3) Neutrophils # (Auto) 5.9 x10^3uL (1.8-7.7) Lymphocytes # (Auto) 1.7 x10^3/uL (1.0-4.8) Monocytes # (Auto) 0.7 x10^3/uL (0.0-1.1) Eosinophils # (Auto) 0.2 x10^3/uL (0.0-0.7) Basophils # (Auto) 0.1 x10^3/uL (0.0-0.2) Sodium Level 143 mmol/L (136-145) Potassium Level 3.7 mmol/L (3.5-5.1) Chloride Level 103 mmol/L (98-107) Carbon Dioxide Level 29 mmol/L (21-32) Anion Gap 11 (6-14) Blood Urea Nitrogen 43 mg/dL (7-20) Creatinine 1.6 mg/dL (0.6-1.0) Estimated GFR (Cockcroft-Gault) 31.7 BUN/Creatinine Ratio 27 (6-20) Glucose Level 220 mg/dL (70-99) Calcium Level 9.5 mg/dL (8.5-10.1) Total Bilirubin 0.7 mg/dL (0.2-1.0) Aspartate Amino Transf (AST/SGOT) 34 U/L (15-37) Alanine Aminotransferase (ALT/SGPT) 39 U/L (14-59) Alkaline Phosphatase 69 U/L (46-116) Total Protein 7.1 g/dL (6.4-8.2) Albumin 3.6 g/dL (3.4-5.0) Albumin/Globulin Ratio 1.0 (1.0-1.7) Urine Collection Type Unknown Urine Color Yellow Urine Clarity Clear Urine pH 5.0 Urine Specific [place] 1.010 Urine Protein Negative mg/dL (NEG-TRACE) Urine Glucose (UA) Negative mg/dL (NEG) Urine Ketones (Stick) Negative mg/dL (NEG) Urine Blood Negative (NEG) Urine Nitrite Negative (NEG) Urine Bilirubin Negative (NEG) Urine Urobilinogen Dipstick 0.2 mg/dL (0.2 mg/dL) Urine Leukocyte Esterase Large (NEG) Urine RBC 0 /HPF (0-2) Urine WBC 11-20 /HPF (0-4) Urine Bacteria 0 /HPF (0-FEW) Urine Hyaline Casts Few /HPF Troponin I Quantitative < 0.017 ng/mL (0.000-0.055) < 0.017 ng/mL (0.000-0.055) Test 09/14/16 08:00 Glucose (Fingerstick) 120 mg/dL (70-99) Images Images CT head yesterday: FINDINGS Ventricles and sulci mildly prominent for age. No midline shift or mass effect. Brain parenchyma is of normal attenuation. No hemorrhage or extra-axial collection. Posterior fossa and brainstem unremarkable. Visualized paranasal sinuses and mastoid air cells are clear. No acute calvarial abnormality. IMPRESSION - No evidence of acute intracranial abnormality. - Mild atrophy for age. MRI lumbar, 09/05/16: FINDINGS Lumbar vertebral body stature is unchanged. There is now grade 1 anterior spondylolisthesis at L3-4. There is very minimal posterior subluxation L1 relative to L2 and negligible posterior subluxation L2 relative to L3. There is again advanced degenerative disc disease at L4-5 and to a lesser degree at L5-S1, somewhat greater degree of moderate degenerative disc disease at L3-4 to a lesser degree at L2-3 and L1-2. Conus terminates at L1. There is new mild L3-4 endplate edema and minimally of the superior, posterior corner of L3 probably reactive/degenerative in etiology. There is very mild lumbar levoscoliosis. T12-L1: Spinal canal and neural foramina are adequate. There is mild buckling of the ligamentum flavum. L1-2: There is again disc osteophyte complex more eccentric into the far left lateral recess and inferior left neural foramina also posterior bulge. There is mild to moderate buckling of the ligamentum flavum and mild facet hypertrophic change. There is overall mild to moderate narrowing of the spinal canal with left greater than right lateral recess stenosis. There is likely mild narrowing of the left neural foramen, right neural foramen overall adequate. L2-L3: There is fairly severe buckling of the ligamentum flavum and mild to moderate facet degenerative change. There is more prominent posterior bulge/protrusion. There is increased severe spinal stenosis with near complete effacement of subarachnoid space. Neural foramina are overall adequate. L3-4: There has been interval posterior decompression. There is moderate facet hypertrophic change greater on the right. There is posterior bulge/protrusion. Previously there was a greater degree of spinal stenosis, residual mild to moderate narrowing of the thecal sac. There is mild narrowing of the inferior neural foramina. L4-5: There has been interval posterior decompression. There is minimal posterior bulge. There is mild narrowing of the far lateral recesses bilaterally, central canal now adequate. There is very minimal narrowing of the inferior neural foramina. L5-S1: There has been posterior decompression. There is again disc osteophyte complex and superimposed broad bulge/protrusion. There is again contact of the descending left S1 nerve root without displacement. There is again moderate narrowing of the left neural foramen with contact undersurface exiting left L5 nerve root, mild narrowing on the right. IMPRESSION 1. Comparing with the 2015 exam, there is increased severe spinal stenosis L2-3, mild to moderate spinal stenosis at L1-L2. There has been posterior decompression L3-4 to L5-S1. 2. There is multilevel neural foramina compromise as stated greatest on the left at L5-S1. 3. There is now grade 1 anterior spondylolisthesis at L3-4, minimal posterior subluxation L1 relative to L2 and L2 relative to L3. There is multilevel lumbar facet degenerative change. 4. There is again more advanced degenerative disc disease at L4-5 and to a lesser degree at L5-S1. There is greater degree of moderate degenerative disc disease at L3-4, to a lesser degree at L1-L2 and L2-3. L3-4 endplate edema is likely reactive/degenerative in etiology. Assessment/Plan Assessment/Plan Impression: Presyncope, probably just reflecting leg weakness and overexertion, no sign of stroke or transient ischemic attack Peripheral neuropathy Severe lumbar spinal stenosis as reviewed on the lumbar MRI Recommendations: Okay for discharge Rehabilitation screening Follow-up with Dr. Maya Follow-up with neurology as needed No need for additional studies. Thank you for letting me help with the patient's care. MIREYA CHEW MD September 14, 2016 11:29
[2016-09-14 15:00] VITALS: BP 198/58
[2016-09-14] MEDS ORDERED: cloNIDine HCL 0.1 MG TABLET PO ONE (15:15)
[2016-09-14] MEDS ORDERED: INSULIN ASPART 300 UNITS/3 ML INSULN.PEN SQ SCH (17:00)
[2016-09-14 19:25] VITALS: BP 131/53
[2016-09-14] MEDS ORDERED: amLODIPine BESYLATE 5 MG TABLET PO SCH (21:00)
[2016-09-14] MEDS ORDERED: INSULIN DETEMIR 300 UNITS/3 ML INSULN.PEN. SQ SCH (21:00)
[2016-09-14] MEDS ORDERED: ATORVASTATIN CALCIUM 40 MG TABLET. PO SCH (21:00)
[2016-09-14] MEDS ORDERED: OXYBUTYNIN CHLORIDE 5 MG TABLET PO SCH (21:00)
[2016-09-14 23:25] VITALS: BP 145/57
[2016-09-15 03:30] VITALS: BP 138/53
[2016-09-15] MEDS: HYDROcodone/APAP 7.5/325MG 1 TAB TABLET PO PRN ×2 (03:38→14:26)
[2016-09-15 07:00] VITALS: BP 171/60
[2016-09-15] MEDS: ASPIRIN ENTERIC COATED 81 MG TABLET.DR. PO SCH (08:24)
[2016-09-15] MEDS: CYCLOBENZAPRINE 10 MG TABLET. PO SCH (08:24)
[2016-09-15] MEDS: FOLIC ACID 1 MG TABLET. PO SCH (08:24)
[2016-09-15] MEDS: DULoxetine HCL 30 MG CAPSULE.DR PO SCH (08:24)
[2016-09-15] MEDS: GABAPENTIN 100 MG CAPSULE. PO SCH ×2 (08:24→14:20)
[2016-09-15] MEDS: LABETALOL HCL 100 MG TABLET. PO SCH (08:25)
[2016-09-15] MEDS: FUROSEMIDE 20 MG TABLET PO SCH (08:26)
[2016-09-15] MEDS: metFORMIN 500 MG TABLET PO SCH (08:26)
[2016-09-15] MEDS: LOSARTAN POTASSIUM 50 MG TABLET. PO SCH (08:26)
[2016-09-15] MEDS: hydroCHLOROthiazide 25 MG TABLET PO SCH (08:26)
[2016-09-15 10:49] VITALS: BP 139/60
--- NOTE | 2016-09-15 12:24 | PDOC ---
SUBJECTIVE Subjective feels better, no further episodes of weakness or dizziness OBJECTIVE Vital Signs Vital Signs Date Time Temp Pulse Resp B/P (MAP) Pulse Ox O2 Delivery O2 Flow Rate FiO2 09/15/16 10:49 98.1 65 18 139/60 (86) 91 Room Air 98.1 09/15/16 08:26 67 171/60 09/15/16 08:25 67 171/60 09/15/16 07:00 98.0 67 18 171/60 (97) 93 Room Air 98.0 09/15/16 03:30 98.2 66 18 138/53 (81) 94 Room Air 98.2 09/14/16 23:25 98.4 76 18 145/57 (86) 96 Room Air 98.4 09/14/16 21:00 71 131/53 09/14/16 21:00 71 131/53 09/14/16 20:00 Room Air 09/14/16 19:25 97.7 71 18 131/53 (79) 97 Room Air 97.7 09/14/16 15:16 86 198/58 09/14/16 15:00 98.0 86 20 198/58 (104) 93 Room Air 98.0 I & O Intake and Output 09/15/16 07:00 Intake Total 1200 ml Output Total 850 ml Balance 350 ml Intake Oral 1200 ml Output Urine Total 850 ml # Voids 2 PHYSICAL EXAM Physical Exam NO CHANGE ASSESSMENT/PLAN Assessment/Plan 1. pre syncope and Episodes of lower extremity weakness ,probably related to her back pain, spinal stenosis and peripheral neuropathy due to the spinal stenosis as well as diabetes mellitus. 2. Diabetes mellitus type 2. 3. Hypertension, hypertensive cardiovascular disease. 4. Hyperlipidemia. 5. Diastolic congestive heart failure, stable. 6. Other diagnoses as per H and P. home today f/u out pt Problems: COMMENT Lab Laboratory Tests Test 09/14/16 16:46 09/14/16 21:05 09/15/16 07:44 09/15/16 12:00 Glucose (Fingerstick) 265 mg/dL (70-99) 247 mg/dL (70-99) 141 mg/dL (70-99) 201 mg/dL (70-99) IMER ABRAMS MD September 15, 2016 12:24
--- NOTE | 2016-09-15 12:26 | PDOC3 ---
Discharge Summary* Date of Admission: September 13, 2016 Date of Discharge: September 15, 2016 Admitting Diagnosis Problems Medical Problems: (1) Generalized weakness Status: Acute (2) Transient ischemic attack (TIA) Status: Acute Final Diagnosis 1.presyncope and Episodes of lower extremity weakness probably related to her back pain, spinal stenosis and peripheral neuropathy due to the spinal stenosis as well as diabetes mellitus. 2. Diabetes mellitus type 2. 3. Hypertension, hypertensive cardiovascular disease. 4. Hyperlipidemia. 5. Diastolic congestive heart failure, stable. Problems Medical Problems: (1) Generalized weakness Status: Acute (2) Transient ischemic attack (TIA) Status: Acute CONSULTS neurology Dr, Davis Procedures CT head, CXR Brief Hospital Course Ms. Richards is a 71 old [sex] who presented with [ ] Disposition/Orders: D/C to Home CONDITION AT DISCHARGE: Stable Diet: Consistent Carbohydrate Scheduled Amlodipine Besylate (Amlodipine Besylate), 0.5 TAB PO HS, (Reported) Aspirin (Aspirin), 1 TAB PO BID, (Reported) Atorvastatin Calcium (Atorvastatin Calcium), 1 TAB PO QHS, (Reported) Calcium Carbonate/Vitamin D3 (Calcium 600 + D Tablet), 1 EACH PO DAILY, ( Reported) Cyclobenzaprine Hcl (Cyclobenzaprine Hcl), 1 TAB PO BID, (Reported) Duloxetine Hcl (Duloxetine Hcl), 60 MG PO DAILY, (Reported) Fexofenadine Hcl (Maribell Allergy), 1 TAB PO DAILY, (Reported) Fish Oil/Dha/Epa (Fish Oil 1,200 Mg Fish Oil), 2 EACH PO DAILY, (Reported) Folic Acid (Folic Acid), 1 TAB PO BID, (Reported) Furosemide (Furosemide), 1 TAB PO DAILY, (Reported) Gabapentin (Gabapentin), 1 CAP PO TID, (Reported) Insulin Aspart (Novolog Flexpen), 10 UNIT SQ DAILYBFRSUP, (Reported) Insulin Detemir (Levemir), 40 UNIT SQ HS, (Reported) Labetalol Hcl (Labetalol Hcl), 1 TAB PO BID, (Reported) Losartan/Hydrochlorothiazide (Losartan-Hctz 100-25 Mg Tab), 1 TAB PO DAILY, ( Reported) Metformin Hcl (Metformin Hcl), 1 TAB PO BID, (Reported) Multivits, W-Fe,Other Min (Complete Multivitamin), 1 EACH PO DAILY, (Reported) Oxybutynin Chloride (Oxybutynin Chloride), 2 TAB PO HS, (Reported) Scheduled PRN Hydrocodone Bit/Acetaminophen (Vicodin 5-300 Mg Tablet), 1 EACH PO Q4H PRN for PAIN, (Reported) FOLLOW UP APPOINTMENT: Jenifer Sun 1 week Time Spent Total time spent with patient [] minutes for coordination of care, counseling, and education. IMER ABRAMS MD September 15, 2016 12:26
== END 2016-09-15 14:26 | disposition home or self-care (01) | DRG 74 ==
LOC: ER 17:00 → 6 SOUTH 19:17
PROVIDERS: ADMIT Internal Medicine; ATTEND Internal Medicine
DX: E11.42 Type 2 diabetes mellitus with diabetic polyneuropathy (principal); I13.0 Hypertensive heart and chronic kidney disease with heart failure and stage 1 through stage 4 chronic kidney disease, or unspecified chronic kidney disease; K50.90 Crohn's disease, unspecified, without complications; I50.30 Unspecified diastolic (congestive) heart failure; M48.06 Spinal stenosis, lumbar region; E78.5 Hyperlipidemia, unspecified; G47.30 Sleep apnea, unspecified; N18.9 Chronic kidney disease, unspecified; F32.9 Major depressive disorder, single episode, unspecified; F41.9 Anxiety disorder, unspecified; G89.29 Other chronic pain; M54.5 Low back pain; K64.9 Unspecified hemorrhoids; K59.00 Constipation, unspecified; M19.90 Unspecified osteoarthritis, unspecified site; M51.37 Other intervertebral disc degeneration, lumbosacral region; I25.10 Atherosclerotic heart disease of native coronary artery without angina pectoris; M43.16 Spondylolisthesis, lumbar region; E78.00 Pure hypercholesterolemia, unspecified; E11.22 Type 2 diabetes mellitus with diabetic chronic kidney disease; K21.9 Gastro-esophageal reflux disease without esophagitis; Z79.4 Long term (current) use of insulin; Z82.49 Family history of ischemic heart disease and other diseases of the circulatory system; Z83.3 Family history of diabetes mellitus; Z86.010 Personal history of colon polyps; Z90.49 Acquired absence of other specified parts of digestive tract; Z90.710 Acquired absence of both cervix and uterus; Z79.899 Other long term (current) drug therapy; Z79.1 Long term (current) use of non-steroidal anti-inflammatories (NSAID); Z79.82 Long term (current) use of aspirin; Z88.8 Allergy status to other drugs, medicaments and biological substances; Z88.5 Allergy status to narcotic agent; Z88.0 Allergy status to penicillin; Z88.6 Allergy status to analgesic agent; Z98.1 Arthrodesis status; Z98.49 Cataract extraction status, unspecified eye; Z80.9 Family history of malignant neoplasm, unspecified
CPT/HCPCS: 36415; 70450; 71010; 80053; 81001; 82947; 84484; 85027; 93005; 96360; J1815; J7030; 99285-25

== ENCOUNTER → 2016-10-09 | Outpatient (CLI) | payer OTHER ==
[2016-09-15 10:49] VITALS: BP 139/60
[~2016-10-09] MED LIST changes: +ASPI-630 PO; -ASPI81TA2 PO; +BENZ100C15 PO; -BENZ100C2 PO; +EZET1TAB30 PO; -EZET1TAB4 PO; -GUAI600T38 PO; +GUAI600T47 PO; +HYDR1TAB12 PO; +SERT25TA PO; +TRAZ100T12 PO
--- NOTE | 2016-10-10 02:13 | PAIN ---
DATE OF SERVICE: 10/09/2016 INITIAL CONSULTATION CHIEF COMPLAINT: Low back and bilateral lower extremity pain. HISTORY OF PRESENT ILLNESS: This is a 71-year-old female who presents with history of pain for about 4 months, increasing in the low back after she was increasing her activity, moving from one facility to another. She was carrying a lot of heavy items. She reports that she feels that she strained her back to some extent, but still having significant pain prior to this. Again, this was in 05/2016 and reports that the pain has not gotten better on its own. She has been doing some stretching and exercises on her own at home. She had some physical therapy in the past and is doing the therapy exercises that they showed her, but the pain is becoming more and more noticeable and able to do the therapy and exercises because of the pain. The patient reports no loss of motor function but significant fatigability, especially in the left lower extremity with walking or standing or even changing positions or standing from the sitting position. It has been awakening her from sleep occasionally, not every night. It does not affect her bowel or bladder control, but it does affect her ability to walk. She has been using a cane, but she is not having it with her today. The patient did have an MRI scan dated 09/05/2016, showing more advanced degenerative disk disease at L4-L5 and to a lesser degree at L5-S1 with a greater degree of moderate degenerative disk disease at L3-L4, L1-L2 and L2-L3 with grade 1 anterior spondylolisthesis at L3-L4, multilevel facet degenerative changes and multilevel neural foraminal compromise, greatest on the left at L5-S1. The patient reports disability rating from 0 to 10, 10 being the worst, as an 8 with family and home responsibilities, 10 with recreation, 8 with social activity, 3 with self-care and 7 with life support activities. PAST MEDICAL HISTORY: Significant for hypertension; diabetes, insulin-dependent; arthritis. PAST SURGICAL HISTORY: Previous surgeries include cataract extractions, hysterectomy, foot surgery x 2 on the right, carpal tunnel release, tonsils, appendectomy, hemorrhoidectomy, rotator cuff repair, and lumbar laminectomy in 03/2016 at an outside facility. CURRENT MEDICATIONS: Include folic acid, metformin, insulin, multivitamins, oxybutynin, amlodipine, atorvastatin, Lasix, losartan, Maribell, duloxetine, gabapentin, labetalol, sertraline, trazodone, cyclobenzaprine, daily baby aspirin, hydrocodone, and Levemir. ALLERGIES: THE PATIENT IS ALLERGIC TO BENADRYL, WHICH CAUSES HIVES. FAMILY HISTORY: Significant for no major medical problems or conditions that she is aware of. SOCIAL HISTORY: The patient does not smoke and does not drink. She is currently retired and lives locally in [place], [place]. REVIEW OF SYSTEMS: The patient's review of systems is positive for those items mentioned in the history of present illness. It is complete, full and well documented on the patient's chart. All systems are reviewed and otherwise negative. PHYSICAL EXAMINATION: VITAL SIGNS: Today, the patient's blood pressure is 164/81, pulse 74, respirations 18, temperature 98.1 degrees Fahrenheit. Height is 4 feet 9 inches, weight is 170 pounds. GENERAL: The patient is awake, alert, oriented, appropriate, very pleasant demeanor. HEENT: Shows normocephalic and atraumatic. Extraocular movements are intact and symmetrical. Oral cavity shows mucous membranes are moist and pink. Dentition is intact. NECK: Shows anterior throat supple without palpable lymphadenopathy noted. Swallow reflex is symmetrical. CHEST: Shows normal on inspection. Breath sounds are clear to auscultation bilaterally. HEART: Shows S1 and S2 clear. ABDOMEN: Obese, soft, nontender, nondistended. No palpable organomegaly. No new rebound or guarding demonstrated. BACK: Shows spine grossly in the midline. Slight exaggeration of thoracic kyphosis. Some mild flattening of the lumbar lordotic curvature with well-healed surgical scar noted in the lumbar distribution. Lumbar paraspinous musculature shows symmetrical on inspection; with palpation, it shows some moderate tenderness with palpation bilaterally and equal without radiation. No tenderness over the sacrum or sacroiliac regions. The patient shows good rotational motion of the lumbar spine, both laterally as well as extension and flexion without difficulty and rotation right and left lateral without difficulty or pain reported. No tenderness with palpation over the sacrum over the spinous processes. EXTREMITIES: Lower extremities show deep tendon reflexes at 1+ in the patellar and tendo calcaneus tendons. Motor exam is approximately 4 on a scale of 5 and equal bilaterally with dorsiflexion, extension, quadriceps and hamstring flexion. Peripheral pulses are 1+ posterior tibial and dorsalis pedis pulses. No peripheral edema is noted. No clubbing. No cyanosis. Lower extremities are warm and dry to touch, equal in color and appearance with straight leg raise noted to be positive on the left at about 35 degrees with pain radiating to posterior gluteus, posterior thigh and lower leg, which has decreased but not relieved with knee flexion; right side is negative. Gaenslen's and Tristan's maneuvers are grossly negative bilaterally. The patient is able to stand but has difficulty trying to stand on her toes, she loses balance very quickly. She is walking with a slight antalgic gait, appears to be favoring the left lower extremity, again does not have any assistive devices with her today, but usually reports that she carries a cane with her. IMPRESSION: 1. This is a 71-year-old female with approximately 4-month history of increasing pain in the low back and left lower extremity in a radicular fashion with previous lumbar laminectomy about 3 years ago and exacerbation of those symptoms as well. 2. Diabetes, insulin-dependent. 3. Hypertension. 4. Arthritis. PLAN: Options were discussed with the patient including conservative medical management, physical therapy, and interventional techniques. She has had physical therapy in the past and is doing exercises now, which are becoming more and more difficult without reduction in pain. She would like to pursue interventional techniques. We discussed a lumbar caudal-approach epidural steroid injection using description as well as anatomical models to describe the procedure. She would like to proceed with this. We will wait for preauthorization once this is approved. We will have the patient return and plan on caudal-approach epidural steroid injection at that time. BRITT DELUNA MD DR: HERLINDA/dominique JOB#: [id number] / [id number] IMER Park MD
== END | disposition home or self-care (01) ==
LOC: PNCL 10:27
PROVIDERS: ATTEND Anesthesiology
DX: M54.5 Low back pain (principal); M79.605 Pain in left leg; M79.604 Pain in right leg
CPT/HCPCS: G0463

== ENCOUNTER → 2016-10-23 | Outpatient (CLI) | payer OTHER ==
[~2016-10-23] MED LIST changes: +IOHEXOL 180 MG/ML 10 ML VIAL. ONE; +methylPREDNISolone ACETATE 40 MG/ML VIAL. ONE; +methylPREDNISolone ACETATE 80 MG/ML VIAL. ONE
== END | disposition home or self-care (01) ==
LOC: PNCL 08:27
PROVIDERS: ATTEND Anesthesiology
DX: M51.36 Other intervertebral disc degeneration, lumbar region (principal); M48.06 Spinal stenosis, lumbar region; M96.1 Postlaminectomy syndrome, not elsewhere classified; E11.42 Type 2 diabetes mellitus with diabetic polyneuropathy; I13.0 Hypertensive heart and chronic kidney disease with heart failure and stage 1 through stage 4 chronic kidney disease, or unspecified chronic kidney disease; E11.22 Type 2 diabetes mellitus with diabetic chronic kidney disease; N18.9 Chronic kidney disease, unspecified; I50.9 Heart failure, unspecified; E78.00 Pure hypercholesterolemia, unspecified; E66.9 Obesity, unspecified; Z68.45 Body mass index [BMI] 70 or greater, adult; F41.9 Anxiety disorder, unspecified; F32.9 Major depressive disorder, single episode, unspecified; Z98.41 Cataract extraction status, right eye; Z98.42 Cataract extraction status, left eye; Z90.710 Acquired absence of both cervix and uterus; Z79.82 Long term (current) use of aspirin; Z88.6 Allergy status to analgesic agent; Z88.0 Allergy status to penicillin; Z88.8 Allergy status to other drugs, medicaments and biological substances
CPT/HCPCS: 62323; J1030; J1040

== ENCOUNTER → 2017-09-24 | Outpatient (CLI) | payer OTHER ==
[2017-09-24 21:11] LABS: ANION GAP 11 (6-14); BLOOD UREA NITROGEN 31 mg/dL (7-20); CALCIUM 9.4 mg/dL (8.5-10.1); CARBON DIOXIDE 26 mmol/L (21-32); CHLORIDE 107 mmol/L (98-107); CREATININE 1.4 mg/dL (0.6-1.0); GFR 36.9; GLUCOSE 186 mg/dL (70-99); POTASSIUM 4.3 mmol/L (3.5-5.1); SODIUM 144 mmol/L (136-145)
== END | disposition home or self-care (01) ==
LOC: LAB 20:23
DX: Z01.818 Encounter for other preprocedural examination (principal); I13.0 Hypertensive heart and chronic kidney disease with heart failure and stage 1 through stage 4 chronic kidney disease, or unspecified chronic kidney disease; E11.22 Type 2 diabetes mellitus with diabetic chronic kidney disease; I50.9 Heart failure, unspecified; N18.3 Chronic kidney disease, stage 3 (moderate); E87.70 Fluid overload, unspecified; E87.79 Other fluid overload; R94.31 Abnormal electrocardiogram [ECG] [EKG]
CPT/HCPCS: 36415; 80048; 93005

== ENCOUNTER 2017-11-08 09:48 | Emergency (ER) | payer OTHER ==
[2017-11-08] MEDS ORDERED: VANCOMYCIN PER PHARMACY MC (10:15)
[2017-11-08 10:51] LABS: ADD MAN DIFF? NO
[2017-11-08] MEDS: IV NORMAL SALINE 1000ML BAG 1,000 ML IV (10:52)
[2017-11-08] MEDS: HYDROcodone/APAP 5/325MG 1 TAB TABLET PO (10:53)
[2017-11-08] MEDS ORDERED: VANCOMYCIN 1.75 GM in IV NORMAL SALINE 500ML BAG 500 ML IV (11:00)
[2017-11-08 11:03] LABS: ANION GAP 11 (6-14); BASO # 0.1 x10^3/uL (0.0-0.2); BASO % 1 % (0-3); BLOOD UREA NITROGEN 41 mg/dL (7-20); BUN/CREATININE RATIO 29 (6-20); CALCIUM 9.2 mg/dL (8.5-10.1); CARBON DIOXIDE 28 mmol/L (21-32); CHLORIDE 98 mmol/L (98-107); CREATININE 1.4 mg/dL (0.6-1.0); EOS # 0.1 x10^3/uL (0.0-0.7); EOS % 2 % (0-3); GFR 36.9; GLUCOSE 155 mg/dL (70-99); HEMATOCRIT 35.3 % (36.0-47.0); HEMOGLOBIN 12.1 g/dL (12.0-15.5); LYMPH # 2.2 x10^3/uL (1.0-4.8); LYMPH % 24 % (24-48); MEAN CORPUSCULAR HEMOGLOBIN 32 pg (25-35); MEAN CORPUSCULAR HGB CONC 34 g/dL (31-37); MEAN CORPUSCULAR VOLUME 94 fL (79-100); MONO # 0.9 x10^3/uL (0.0-1.1); MONO % 10 % (0-9); NEUT # 5.8 x10^3uL (1.8-7.7); NEUT % 63 % (31-73); PLATELET COUNT 272 x10^3/uL (140-400); POTASSIUM 3.1 mmol/L (3.5-5.1); RED BLOOD COUNT 3.75 x10^6/uL (3.50-5.40); RED CELL DISTRIBUTION WIDTH 14.8 % (11.5-14.5); SODIUM 137 mmol/L (136-145); WHITE BLOOD COUNT 9.1 x10^3/uL (4.0-11.0)
[2017-11-08 11:09] LABS: ALBUMIN 3.1 g/dL (3.4-5.0); ALBUMIN/GLOBULIN RATIO 0.8 (1.0-1.7); ALK PHOS 67 U/L (46-116); ALT (SGPT) 37 U/L (14-59); AST (SGOT) 35 U/L (15-37); TOTAL BILIRUBIN 0.6 mg/dL (0.2-1.0); TOTAL PROTEIN 6.9 g/dL (6.4-8.2)
[2017-11-08 11:11] LABS: LACTIC ACID 3.8 mmol/L (0.4-2.0)
[2017-11-08 12:48] LABS: LACTIC ACID 1.6 mmol/L (0.4-2.0)
== END 2017-11-08 13:00 | disposition home or self-care (01) ==
LOC: ER 09:48
DX: T81.4XXA Infection following a procedure, initial encounter (principal); E78.00 Pure hypercholesterolemia, unspecified; I12.9 Hypertensive chronic kidney disease with stage 1 through stage 4 chronic kidney disease, or unspecified chronic kidney disease; E11.22 Type 2 diabetes mellitus with diabetic chronic kidney disease; N18.9 Chronic kidney disease, unspecified; Y83.8 Other surgical procedures as the cause of abnormal reaction of the patient, or of later complication, without mention of misadventure at the time of the procedure; Y92.89 Other specified places as the place of occurrence of the external cause; Z88.0 Allergy status to penicillin; Z88.5 Allergy status to narcotic agent; Z88.6 Allergy status to analgesic agent
CPT/HCPCS: 36415; 73630; 80053; 83605; 85025; 87040; 99285-25; J7030

== ENCOUNTER 2018-07-27 18:38 | Emergency (ER) | payer MEDICARE, OTHER ==
[~2018-07-27] VITALS: Ht 144.8 cm; Wt 73.5 kg
[~2018-07-27 18:38] MED LIST changes: -AMLO10TA2 PO; +AMLO10TA8 PO; +BENZ-8 PO; -BENZ100C15 PO; -HYDR-2762 PO; +HYDR-2765 PO; +HYDR-3164 PO; -HYDR-971 PO; -HYDR1TAB12 PO; +HYDR1TAB13 PO; -IOHEXOL 180 MG/ML 10 ML VIAL. ONE; -LABE100T3 PO; +LABE100T5 PO; -LOSA1TAB17 PO; +LOSA1TAB22 PO; +METF500T16 PO; -METF500T4 PO; +TRAZ-86 PO; -TRAZ100T12 PO; -methylPREDNISolone ACETATE 40 MG/ML VIAL. ONE; -methylPREDNISolone ACETATE 80 MG/ML VIAL. ONE
--- NOTE | 2018-07-27 19:34 | PHYS DOC ---
Past Medical History Past Medical History: Diabetes-Type II, High Cholesterol, Hypertension, Renal Disease Past Surgical History: Appendectomy, Hysterectomy, Lumbar Laminectomy, Tonsillectomy Additional Past Surgical Histo: right foot, right rotator cuff Alcohol Use: None Drug Use: None Adult General Chief Complaint Chief Complaint: FOOT INJURY PAIN HPI HPI Patient is a 73 year old female presented to the ER today for evaluation of left foot pain for 2 days, denied any injury. Patient said it has been painful , walking on it. Patient also complains of left FOOT pain and swelling since. No chest pain, no shortness of air, fever. Review of Systems Review of Systems Constitutional: Denies fever or chills [] Eyes: Denies change in visual acuity, redness, or eye pain [] HENT: Denies nasal congestion or sore throat [] Respiratory: Denies cough or shortness of breath [] Cardiovascular: No additional information not addressed in HPI [] GI: Denies abdominal pain, nausea, vomiting, bloody stools or diarrhea [] : Denies dysuria or hematuria [] Musculoskeletal: SIGNIFICANT FOR left foot pain and swelling Integument: Denies rash or skin lesions [] Neurologic: Denies headache, focal weakness or sensory changes [] Endocrine: Denies polyuria or polydipsia [] All other systems were reviewed and found to be within normal limits, except as documented in this note. Current Medications Current Medications Current Medications Medications (Trade) Dose Ordered Sig/Reynaldo Start Time Stop Time Status Last Admin Dose Admin Acetaminophen/ Hydrocodone Bitart (Lortab 5/325) 1 tab 1X ONCE 07/27/18 21:30 07/27/18 21:31 DC 07/27/18 21:05 1 TAB Methylprednisolone Sodium Succinate (SOLU-Medrol 125MG VIAL) 125 mg 1X ONCE 07/27/18 21:30 07/27/18 21:31 DC 07/27/18 21:05 125 MG Allergies Allergies Allergies Coded Allergies Type Severity Reaction Last Updated Verified NSAIDS (Non-Steroidal Anti-Inflamma Allergy Intermediate 09/13/16 Yes aspirin Allergy Intermediate 10/17/14 Yes diphenhydramine Allergy Intermediate hives 09/13/16 Yes morphine Allergy Intermediate 10/15/14 Yes Penicillins Allergy Unknown 09/13/16 Yes Physical Exam Physical Exam Constitutional: Well developed, well nourished, no acute distress, non-toxic appearance. [] HENT: Normocephalic, atraumatic, bilateral external ears normal, oropharynx moist, no oral exudates, nose normal. [] Eyes: PERRLA, EOMI, conjunctiva normal, no discharge. [] Neck: Normal range of motion, no tenderness, supple, no stridor. [] Cardiovascular:Heart rate regular rhythm, no murmur [] Lungs & Thorax: Bilateral breath sounds clear to auscultation [] Abdomen: Bowel sounds normal, soft, no tenderness, no masses, no pulsatile masses. [] Skin: LEFT FOOT AND DISTAL LEFT LEG ARE ERYTHEMATOUS, VERY WARM TO TOUCH. Back: No tenderness, no CVA tenderness. [] Extremities: LEFT FOOT IS TENDER, ERYTHEMATOUS, TENDER , MOST ON THE LEFT LATERAL SIDE. NO OPEN WOUND. Neurologic: Alert and oriented X 3, normal motor function, normal sensory function, no focal deficits noted. [] Psychologic: Affect normal, judgement normal, mood normal. [] Current Patient Data Vital Signs Vital Signs Date Time Temp Pulse Resp B/P (MAP) Pulse Ox O2 Delivery O2 Flow Rate FiO2 07/27/18 21:36 80 20 150/69 (96) 93 Room Air 07/27/18 19:00 98.4 98.4 Lab Values Laboratory Tests Test 07/27/18 20:07 White Blood Count 10.1 x10^3/uL (4.0-11.0) Red Blood Count 3.78 x10^6/uL (3.50-5.40) Hemoglobin 12.2 g/dL (12.0-15.5) Hematocrit 36.7 % (36.0-47.0) Mean Corpuscular Volume 97 fL (79-100) Mean Corpuscular Hemoglobin 32 pg (25-35) Mean Corpuscular Hemoglobin Concent 33 g/dL (31-37) Red Cell Distribution Width 14.8 % (11.5-14.5) H Platelet Count 269 x10^3/uL (140-400) Neutrophils (%) (Auto) 68 % (31-73) Lymphocytes (%) (Auto) 19 % (24-48) L Monocytes (%) (Auto) 12 % (0-9) H Eosinophils (%) (Auto) 1 % (0-3) Basophils (%) (Auto) 0 % (0-3) Neutrophils # (Auto) 6.8 x10^3uL (1.8-7.7) Lymphocytes # (Auto) 1.9 x10^3/uL (1.0-4.8) Monocytes # (Auto) 1.2 x10^3/uL (0.0-1.1) H Eosinophils # (Auto) 0.1 x10^3/uL (0.0-0.7) Basophils # (Auto) 0.0 x10^3/uL (0.0-0.2) Erythrocyte Sedimentation Rate 82 (0-25) H Sodium Level 141 mmol/L (136-145) Potassium Level 3.6 mmol/L (3.5-5.1) Chloride Level 99 mmol/L (98-107) Carbon Dioxide Level 30 mmol/L (21-32) Anion Gap 12 (6-14) Blood Urea Nitrogen 35 mg/dL (7-20) H Creatinine 1.4 mg/dL (0.6-1.0) H Estimated GFR (Cockcroft-Gault) 36.8 BUN/Creatinine Ratio 25 (6-20) H Glucose Level 74 mg/dL (70-99) Uric Acid 9.3 mg/dL (2.6-6.0) H Calcium Level 9.7 mg/dL (8.5-10.1) Total Bilirubin 0.6 mg/dL (0.2-1.0) Aspartate Amino Transferase (AST) 23 U/L (15-37) Alanine Aminotransferase (ALT) 31 U/L (14-59) Alkaline Phosphatase 57 U/L (46-116) C-Reactive Protein, Quantitative 56.2 mg/L (0-3.3) H MR-Fcm-N-Type Natriuretic Peptide 271 pg/mL (0-124) H Total Protein 7.4 g/dL (6.4-8.2) Albumin 3.5 g/dL (3.4-5.0) Albumin/Globulin Ratio 0.9 (1.0-1.7) L Laboratory Tests 07/27/18 20:07 Laboratory Tests 07/27/18 20:07 EKG EKG [] Radiology/Procedures Radiology/Procedures [][facility] [address] [place] [address] IMAGING REPORT Signed PATIENT: LILLIAM LUX ACCOUNT: [id number] : 1945 LOCATION: ER AGE: 73 SEX: F EXAM STATUS: REG ER ORD. PHYSICIAN: CHARLOTTE BRADY DO REASON: LEFT FOOT AND LEFT LEG SWELLING, PAIN, REDNESS FOR 2 DAYS, PROCEDURE: VENOUS LOWER EXTREMITY LEFT Left lower extremity venous Doppler dated 07/27/2018. No comparison available. Clinical data indication: Pain and swelling. No known injury. FINDINGS: Grayscale, color-flow and spectral waveform analysis performed to include the deep venous system of the left lower extremity. Normal compressibility, phasicity and augmentation of flow throughout. No filling defects are seen. IMPRESSION: No evidence of left lower extremity deep vein thrombosis. Electronically signed by: Aren Cline MD (07/27/2018 10:28 PM) [facility] [place] DICTATED and SIGNED BY: AREN CLINE MD DATE: 07/27/18 [id number] [facility] [address] [place], [place] [id number] IMAGING REPORT Signed PATIENT: LILLIAM LUX ACCOUNT: [id number] : 1945 LOCATION: ER AGE: 73 SEX: F EXAM STATUS: REG ER ORD. PHYSICIAN: CHARLOTTE BRADY DO REASON: left foot pain for 2 days PROCEDURE: FOOT LEFT 3V Three-view left foot dated 07/27/2018. No comparison available. CLINICAL INDICATION: Swelling and foot pain for 2 days. Findings 3 views left foot show moderate hallux valgus deformity. Mild pes cavus. Small calcaneal spur. Mild degenerative change of the first MTP joint and interphalangeal joints throughout. There is diffuse soft tissue swelling. Mild degenerative change of the Lisfranc joints. IMPRESSION: Soft tissue swelling with no apparent underlying acute bony abnormality. Electronically signed by: Aren Cline MD (07/27/2018 9:07 PM) [facility] [place] DICTATED and SIGNED BY: AREN CLINE MD DATE: 07/27/18 7972 Course & Med Decision Making Course & Med Decision Making Pertinent Labs and Imaging studies reviewed. (See chart for details) [] Dragon Disclaimer Dragon Disclaimer This electronic medical record was generated, in whole or in part, using a voice recognition dictation system. Departure Departure Impression: Primary Impression: Gout of left foot Disposition: HOME, SELF-CARE Condition: IMPROVED Referrals: XIOMARA SINGH APRN (PCP) follow up with your doctor on Saturday for reevaluation. Patient Instructions: Gout Scripts Hydrocodone/Apap 5-325 (NORCO 5-325 TABLET) 1 Each Tablet 1 TAB PO PRN Q6HRS PRN for PAIN, #15 TAB 0 Refills Prov: CHARLOTTE BRADY DO 07/27/18 Prednisone (PREDNISONE) 20 Mg Tablet 1 TAB PO DAILY for 7 Days, #7 TAB Prov: CHARLOTTE BRADY DO 07/27/18 CHARLOTTE BRADY DO Jul 27, 2018 19:34
[2018-07-27 20:22] LABS: BASO % 0 % (0-3); EOS # 0.1 x10^3/uL (0.0-0.7); EOS % 1 % (0-3); HEMATOCRIT 36.7 % (36.0-47.0); HEMOGLOBIN 12.2 g/dL (12.0-15.5); LYMPH # 1.9 x10^3/uL (1.0-4.8); LYMPH % 19 % (24-48); MEAN CORPUSCULAR HEMOGLOBIN 32 pg (25-35); MEAN CORPUSCULAR HGB CONC 33 g/dL (31-37); MEAN CORPUSCULAR VOLUME 97 fL (79-100); MONO # 1.2 x10^3/uL (0.0-1.1); MONO % 12 % (0-9); NEUT # 6.8 x10^3uL (1.8-7.7); NEUT % 68 % (31-73); PLATELET COUNT 269 x10^3/uL (140-400); RED BLOOD COUNT 3.78 x10^6/uL (3.50-5.40); RED CELL DISTRIBUTION WIDTH 14.8 % (11.5-14.5); WHITE BLOOD COUNT 10.1 x10^3/uL (4.0-11.0)
[2018-07-27 20:35] LABS: CALCIUM 9.7 mg/dL (8.5-10.1); CREATININE 1.4 mg/dL (0.6-1.0); GFR 36.8; POTASSIUM 3.6 mmol/L (3.5-5.1)
[2018-07-27 20:40] LABS: ALBUMIN 3.5 g/dL (3.4-5.0); ALBUMIN/GLOBULIN RATIO 0.9 (1.0-1.7); C-REACTIVE PROTEIN 56.2 mg/L (0-3.3); TOTAL BILIRUBIN 0.6 mg/dL (0.2-1.0); TOTAL PROTEIN 7.4 g/dL (6.4-8.2); URIC ACID 9.3 mg/dL (2.6-6.0)
--- NOTE | 2018-07-27 21:10 | RAD ---
Three-view left foot dated 07/27/2018. No comparison available. CLINICAL INDICATION: Swelling and foot pain for 2 days. Findings 3 views left foot show moderate hallux valgus deformity. Mild pes cavus. Small calcaneal spur. Mild degenerative change of the first MTP joint and interphalangeal joints throughout. There is diffuse soft tissue swelling. Mild degenerative change of the Lisfranc joints. IMPRESSION: Soft tissue swelling with no apparent underlying acute bony abnormality. Electronically signed by: Aren Cline MD (07/27/2018 9:07 PM) [facility] [id number]
[2018-07-27] MEDS ORDERED: HYDROcodone/APAP 5/325MG 1 TAB TABLET PO ONE (21:30)
[2018-07-27] MEDS ORDERED: methylPREDNISolone SOD SUCC PF 125 MG/2 ML VIAL. IV ONE (21:30)
[2018-07-27 21:36] VITALS: BP 150/69
[2018-07-27] MEDS ORDERED: PRED20TA PO (22:26)
[2018-07-27] MEDS ORDERED: HYDR-3164 PO (22:26)
--- NOTE | 2018-07-27 22:31 | RAD ---
Left lower extremity venous Doppler dated 07/27/2018. No comparison available. Clinical data indication: Pain and swelling. No known injury. FINDINGS: Grayscale, color-flow and spectral waveform analysis performed to include the deep venous system of the left lower extremity. Normal compressibility, phasicity and augmentation of flow throughout. No filling defects are seen. IMPRESSION: No evidence of left lower extremity deep vein thrombosis. Electronically signed by: Aren Cline MD (07/27/2018 10:28 PM) [facility] [id number]
== END 2018-07-27 22:43 | disposition home or self-care (01) ==
LOC: ER 18:38
DX: M10.9 Gout, unspecified (principal); M79.672 Pain in left foot; E11.9 Type 2 diabetes mellitus without complications; E78.00 Pure hypercholesterolemia, unspecified; I10 Essential (primary) hypertension; N28.9 Disorder of kidney and ureter, unspecified; Z90.89 Acquired absence of other organs; Z90.710 Acquired absence of both cervix and uterus; Z98.890 Other specified postprocedural states; Z88.5 Allergy status to narcotic agent; Z88.6 Allergy status to analgesic agent; Z88.0 Allergy status to penicillin
CPT/HCPCS: 36415; 73630; 80053; 83880; 84550; 85025; 85651; 86140; 93971; 96374; 99284; J2930

== ENCOUNTER 2018-08-29 18:14 | Inpatient (IN) | payer MEDICARE ==
[~2018-08-29] VITALS: Ht 144.8 cm; Wt 73.5 kg
[~2018-08-29 18:14] MED LIST changes: +PRED20TA PO
[2018-08-29] MEDS ORDERED: IV NORMAL SALINE 1000ML BAG 1,000 ML IV ONE ×2 (19:15→20:15)
[2018-08-29] MEDS ORDERED: IPRATRPIUM/ALBUTEROL 0.5/2.5MG 3 ML NEBU. NEB ONE (19:15)
--- NOTE | 2018-08-29 19:20 | PHYS DOC ---
Past Medical History Past Medical History: Diabetes-Type II, High Cholesterol, Hypertension, Renal Disease Past Surgical History: Appendectomy, Hysterectomy, Lumbar Laminectomy, Tonsillectomy Additional Past Surgical Histo: right foot, right rotator cuff; R ankle; left foot Alcohol Use: None Drug Use: None Adult General Chief Complaint Chief Complaint: HYPOGLYCEMIA HPI HPI Patient is a 73 year old female who presents with hypoglycemia. She states that early this morning she woke up to use the restroom after which she fell down on the floor and did not wake up for almost 12 hours. When she woke up she checked her blood sugar and it was in the low 50's. She then drank some soda and ate a cookie after which her sugars elevated to the 170's. Prior to passing out she states that she had one episode of diarrhea. She denies any blood in her stool but does state that there was blood in her urine. She has a history of a recent URI for which she was given a Z-pack two weeks ago. She does not think that she hit her head when she fell and denies any head pain, abdominal pain, chest pain, or nausea. She reports some shortness of air as well. Review of Systems Review of Systems Constitutional: Denies fever or chills [] Eyes: Denies change in visual acuity, redness, or eye pain [] HENT: Denies nasal congestion or sore throat [] Respiratory: Denies cough reports shortness of breath [] Cardiovascular: No additional information not addressed in HPI [] GI: Denies abdominal pain, nausea, vomiting, or bloody stools, reports diarrhea [] : Denies dysuria, reports hematuria [] Neurologic: Denies headache, focal weakness or sensory changes [] Endocrine: Denies polyuria or polydipsia [] All other systems were reviewed and found to be within normal limits, except as documented in this note. Current Medications Current Medications Current Medications Medications (Trade) Dose Ordered Sig/Reynaldo Start Time Stop Time Status Last Admin Dose Admin Albuterol/ Ipratropium (Duoneb) 3 ml 1X ONCE 08/29/18 19:15 08/29/18 19:16 DC 08/29/18 19:42 3 ML Levofloxacin/ Dextrose (Levaquin Per Pharmacy) 1 each PRN DAILY PRN 08/29/18 20:30 Sodium Chloride 1,000 ml @ 75 mls/hr [id number] 08/29/18 20:29 08/30/18 20:28 Allergies Allergies Allergies Coded Allergies Type Severity Reaction Last Updated Verified NSAIDS (Non-Steroidal Anti-Inflamma Allergy Intermediate 09/13/16 Yes aspirin Allergy Intermediate 10/17/14 Yes diphenhydramine Allergy Intermediate hives 09/13/16 Yes morphine Allergy Intermediate 10/15/14 Yes Penicillins Allergy Unknown 09/13/16 Yes Physical Exam Physical Exam Constitutional: Well developed, well nourished, no acute distress, non-toxic appearance. [] HENT: Normocephalic, atraumatic, bilateral external ears normal, oropharynx dry, no oral exudates, nose normal. [] Eyes: PERRLA, EOMI, conjunctiva normal, no discharge. [] Neck: Normal range of motion, no tenderness, supple, no stridor. [] Cardiovascular:Heart rate regular rhythm, 2/6 systolic murmur noted Lungs & Thorax: Bilateral breath sounds clear to auscultation [] Abdomen: Bowel sounds normal, soft, no tenderness, no masses, no pulsatile masses. [] Skin erythema on the foot and hoff as noted below. Back: No tenderness, no CVA tenderness. [] Extremities: No tenderness, no cyanosis, no clubbing, ROM intact, trace edema. there is ttp and erythema noted to the dorsum of the left foot up to thes hin. pulse present. Neurologic: Alert and oriented X 3, normal motor function, normal sensory function, no focal deficits noted. [] Psychologic: Affect normal, judgement normal, mood normal. [] Current Patient Data Vital Signs Vital Signs Date Time Temp Pulse Resp B/P (MAP) Pulse Ox O2 Delivery O2 Flow Rate FiO2 08/29/18 20:30 76 16 145/65 (91) 95 08/29/18 19:01 Room Air 08/29/18 18:30 97.7 97.7 Lab Values Laboratory Tests Test 08/29/18 18:30 08/29/18 19:24 08/29/18 19:51 Glucose (Fingerstick) 250 mg/dL (70-99) H White Blood Count 8.4 x10^3/uL (4.0-11.0) Red Blood Count 3.53 x10^6/uL (3.50-5.40) Hemoglobin 11.6 g/dL (12.0-15.5) L Hematocrit 33.9 % (36.0-47.0) L Mean Corpuscular Volume 96 fL (79-100) Mean Corpuscular Hemoglobin 33 pg (25-35) Mean Corpuscular Hemoglobin Concent 34 g/dL (31-37) Red Cell Distribution Width 15.1 % (11.5-14.5) H Platelet Count 272 x10^3/uL (140-400) Neutrophils (%) (Auto) 72 % (31-73) Lymphocytes (%) (Auto) 15 % (24-48) L Monocytes (%) (Auto) 11 % (0-9) H Eosinophils (%) (Auto) 2 % (0-3) Basophils (%) (Auto) 1 % (0-3) Neutrophils # (Auto) 6.0 x10^3uL (1.8-7.7) Lymphocytes # (Auto) 1.3 x10^3/uL (1.0-4.8) Monocytes # (Auto) 0.9 x10^3/uL (0.0-1.1) Eosinophils # (Auto) 0.1 x10^3/uL (0.0-0.7) Basophils # (Auto) 0.0 x10^3/uL (0.0-0.2) Prothrombin Time 13.9 SEC (11.7-14.0) Prothrombin Time INR 1.1 (0.8-1.1) Sodium Level 134 mmol/L (136-145) L Potassium Level 4.2 mmol/L (3.5-5.1) Chloride Level 96 mmol/L (98-107) L Carbon Dioxide Level 26 mmol/L (21-32) Anion Gap 12 (6-14) Blood Urea Nitrogen 40 mg/dL (7-20) H Creatinine 1.5 mg/dL (0.6-1.0) H Estimated GFR (Cockcroft-Gault) 33.9 BUN/Creatinine Ratio 27 (6-20) H Glucose Level 236 mg/dL (70-99) H Calcium Level 9.9 mg/dL (8.5-10.1) Total Bilirubin 0.7 mg/dL (0.2-1.0) Aspartate Amino Transferase (AST) 48 U/L (15-37) H Alanine Aminotransferase (ALT) 35 U/L (14-59) Alkaline Phosphatase 57 U/L (46-116) Creatine Kinase 1307 U/L (26-192) H Troponin I Quantitative < 0.017 ng/mL (0.000-0.055) Total Protein 7.0 g/dL (6.4-8.2) Albumin 2.9 g/dL (3.4-5.0) L Albumin/Globulin Ratio 0.7 (1.0-1.7) L Urine Collection Type U cath Urine Color Yellow Urine Clarity Clear Urine pH 6.0 Urine Specific [place] 1.010 Urine Protein Negative mg/dL (NEG-TRACE) Urine Glucose (UA) Negative mg/dL (NEG) Urine Ketones (Stick) Negative mg/dL (NEG) Urine Blood Negative (NEG) Urine Nitrite Negative (NEG) Urine Bilirubin Negative (NEG) Urine Urobilinogen Dipstick 0.2 mg/dL (0.2 mg/dL) Urine Leukocyte Esterase Large (NEG) Urine RBC Occ /HPF (0-2) Urine WBC Tntc /HPF (0-4) Urine Squamous Epithelial Cells Few /LPF Urine Bacteria Few /HPF (0-FEW) Laboratory Tests 08/29/18 19:24 Laboratory Tests 08/29/18 19:24 EKG EKG Sinus rhythm rate of 84, no acute ischemic changes[] Radiology/Procedures Radiology/Procedures [] Impressions: CT HEAD WO CONTRAST Indication: found down, ams. has xray too Exposure: One or more of the following individualized dose reduction techniques were utilized for this examination: 1. Automated exposure control 2. Adjustment of the mA and/or kV according to patient size 3. Use of iterative reconstruction technique. Technique: Standard imaging without intravenous contrast. No evidence of acute intracranial hemorrhage, mass effect, midline shift or abnormal extra-axial fluid collection. Mild prominence of ventricles and sulci compatible with mild atrophy. Low-density in the white matter bilaterally, a nonspecific finding, but which is commonly due to chronic small vessel ischemic disease in a patient of this age.. The visualized sinuses are clear. No evidence of depressed skull fracture. Orbits are symmetric. No significant scalp hematoma. IMPRESSION: Chronic findings, no evidence of acute intracranial hemorrhage. PORTABLE CHEST 1V History: Altered mental status.. Comparison is made with image from 09/13/2016 without report. Cardiac silhouette and size is unchanged. No evidence of pneumothorax. No pleural effusion. No infiltrate is seen. Evidence of left and probable right rotator cuff tear. IMPRESSION: No acute infiltrate. Electronically signed by: Aren Matthews MD (08/29/2018 7:49 PM) [facility] Course & Med Decision Making Course & Med Decision Making Pertinent Labs and Imaging studies reviewed. (See chart for details) []73-year-old female with a history of diabetes presenting with hypoglycemia found down was down for several hours found to have a UTI as well as rhabdomyolysis overall fairly mild overall however family is concerned patient is still feeling weak so we will admit to Dr. Lala discussed case with him at 10 PM for hydration and antibiotics Levaquin was given that she also cover the possible early cellulitis of the left foot. Gout is on the differential but the prednisone increased blood sugar even further currently is 258 think we'll start antibiotics and see how her foot does. head ct and cxr neg hydration for the rhabdo ordered q2 hr glucose for bridge orders overnight levaquin for the uti and cellulitis Dragon Disclaimer Dragon Disclaimer This electronic medical record was generated, in whole or in part, using a voice recognition dictation system. Departure Departure Impression: Primary Impression: Rhabdomyolysis Additional Impression: UTI (urinary tract infection) Disposition: ADMITTED INPATIENT Admitting Physician: Uziel Monique Condition: STABLE Referrals: IMER ABRAMS MD (PCP) Problem Qualifiers YELENA CAMEJO MD August 29, 2018 19:20
[2018-08-29 19:31] LABS: BASO % 1 % (0-3); EOS # 0.1 x10^3/uL (0.0-0.7); EOS % 2 % (0-3); HEMATOCRIT 33.9 % (36.0-47.0); HEMOGLOBIN 11.6 g/dL (12.0-15.5); LYMPH # 1.3 x10^3/uL (1.0-4.8); LYMPH % 15 % (24-48); MEAN CORPUSCULAR HEMOGLOBIN 33 pg (25-35); MEAN CORPUSCULAR HGB CONC 34 g/dL (31-37); MEAN CORPUSCULAR VOLUME 96 fL (79-100); MONO # 0.9 x10^3/uL (0.0-1.1); MONO % 11 % (0-9); NEUT % 72 % (31-73); PLATELET COUNT 272 x10^3/uL (140-400); RED BLOOD COUNT 3.53 x10^6/uL (3.50-5.40); RED CELL DISTRIBUTION WIDTH 15.1 % (11.5-14.5); WHITE BLOOD COUNT 8.4 x10^3/uL (4.0-11.0)
[2018-08-29 19:40] LABS: CALCIUM 9.9 mg/dL (8.5-10.1); CREATININE 1.5 mg/dL (0.6-1.0); GFR 33.9; POTASSIUM 4.2 mmol/L (3.5-5.1); PROTHROMBIN TIME PATIENT 13.9 SEC (11.7-14.0)
--- NOTE | 2018-08-29 19:52 | RAD ---
PORTABLE CHEST 1V History: Altered mental status.. Comparison is made with image from 09/13/2016 without report. Cardiac silhouette and size is unchanged. No evidence of pneumothorax. No pleural effusion. No infiltrate is seen. Evidence of left and probable right rotator cuff tear. IMPRESSION: No acute infiltrate. Electronically signed by: Aren Matthews MD (08/29/2018 7:49 PM) [facility]
--- NOTE | 2018-08-29 19:54 | RAD ---
CT HEAD WO CONTRAST Indication: found down, ams. has xray too Exposure: One or more of the following individualized dose reduction techniques were utilized for this examination: 1. Automated exposure control 2. Adjustment of the mA and/or kV according to patient size 3. Use of iterative reconstruction technique. Technique: Standard imaging without intravenous contrast. No evidence of acute intracranial hemorrhage, mass effect, midline shift or abnormal extra-axial fluid collection. Mild prominence of ventricles and sulci compatible with mild atrophy. Low-density in the white matter bilaterally, a nonspecific finding, but which is commonly due to chronic small vessel ischemic disease in a patient of this age.. The visualized sinuses are clear. No evidence of depressed skull fracture. Orbits are symmetric. No significant scalp hematoma. IMPRESSION: Chronic findings, no evidence of acute intracranial hemorrhage. Electronically signed by: Aren Matthews MD (08/29/2018 7:51 PM) [facility]
[2018-08-29 19:55] LABS: ALBUMIN 2.9 g/dL (3.4-5.0); ALBUMIN/GLOBULIN RATIO 0.7 (1.0-1.7); TOTAL BILIRUBIN 0.7 mg/dL (0.2-1.0)
[2018-08-29 20:00] LABS: BILIRUBIN,URINE NEGATIVE (NEG); CLARITY,URINE CLEAR; COLOR,URINE YELLOW; NITRITE,URINE NEGATIVE (NEG); PROTEIN,URINE NEGATIVE (NEG-TRACE); UROBILINOGEN,URINE 0.2 mg/dL (0.2 mg/dL)
[2018-08-29 20:12] LABS: BACTERIA,URINE FEW /HPF (0-FEW); RBC,URINE OCC /HPF (0-2); SQUAMOUS EPITHELIAL CELL,UR FEW /LPF; WBC,URINE TNTC /HPF (0-4)
[2018-08-29] MEDS: IV NORMAL SALINE 1000ML BAG 1,000 ML IV SCH ×2 (20:29→22:52)
[2018-08-29] MEDS ORDERED: levOFLOXacin PER PHARMACY. MC PRN (20:30)
[2018-08-29] MEDS ORDERED: NORT25CA PO (22:36)
[2018-08-29] MEDS ORDERED: PROAIR RESPICL90 MCG INH (22:36)
[2018-08-29] MEDS ORDERED: ICOS1CAP PO (22:36)
[2018-08-29 22:46] VITALS: BP 164/67
--- NOTE | 2018-08-30 00:34 | NUR ---
Patient admission Pt arrived to the unit at approximately 2119 via gurney from the ED. Pt's daughter at bedside. Patient information guide packet was explained and given to pt. All questions and concerns regarding pt's POC was addressed and answered. RN went over all of pt's home medications, meds list updated. Pt stated that she might still have a few meds that she cannot recalled at this time, will have her daughter bring her current list of meds in the morning. Diabetes education was also given as pt stated that she takes insulin at home but do not check her blood sugar before taking it. Pt and her daughter verbalized understanding of care. Pt made comfortable in bed. Will continue to monitor pt closely. Addendum: 08/30/18 at 0612 by JUSTINE TYSON RN Pt's daughter brought up pt's list of medications. All home medications are updated.
[2018-08-30 03:00] VITALS: BP 137/51
[2018-08-30 04:53] LABS: CALCIUM 8.9 mg/dL (8.5-10.1); CREATININE 1.2 mg/dL (0.6-1.0); GFR 43.9; POTASSIUM 3.4 mmol/L (3.5-5.1)
[2018-08-30 07:00] VITALS: BP 141/52
--- NOTE | 2018-08-30 07:53 | EKG ---
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
--- NOTE | 2018-08-30 08:08 | PDOC1 ---
History and Physical Date of Admission Date of Admission DATE: 08/30/18 TIME: 08:08 Identification/Chief Complaint Chief Complaint SEEN IN ER , 73 year old female who presented with hypoglycemia. She states that early 08/29 she woke up to use the restroom after which she fell down on the floor and did not wake up for almost 12 hours. When she woke up she checked her blood sugar and it was in the low 50's. She then drank some soda and ate a cookie after which her sugars elevated to the 170's. Prior to passing out she states that she had one episode of diarrhea. She denies any blood in her stool but does state that there was blood in her urine. She has a history of a recent URI for which she was given a Z-pack two weeks ago. does not think that she hit her head when she fell and denies any head pain, a bdominal pain, chest pain, or nausea. Past Medical History Past Medical History Past Medical History Past Medical History: Diabetes-Type II, High Cholesterol, Hypertension, Renal Disease Past Surgical History: Appendectomy, Hysterectomy, Lumbar Laminectomy, Tonsillectomy Additional Past Surgical Histo: right foot, right rotator cuff; R ankle; left foot Alcohol Use: None Drug Use: None family hx obesity Cardiovascular: CAD, CHF, HTN, Hyperlipidemia Pulmonary: Other CENTRAL NERVOUS SYSTEM: Periperal neuropathy GI: Constipation, Hemorrhoids, Inflam bowel disease, Other Heme/Onc: No pertinent hx Hepatobiliary: No pertinent hx Psych: Anxiety, Depression Musculoskeletal: low back pain, Osteoarthritis Rheumatologic: No pertinent hx Renal/: Chronic renal insuff Endocrine: Diabetes Past Surgical History Past Surgical History: Appendectomy, Cataract Removal, Tonsillectomy, Hysterectomy, Colon Resection, Other Family History Family History: Diabetes, High Cholestrol, Stroke Social History Smoke: No ALCOHOL: none Drugs: None Current Medications Current Medications Current Medications Albuterol/ Ipratropium (Duoneb) 3 ml 1X ONCE NEB Last administered on 08/29/18at 19:42; Start 08/29/18 at 19:15; Stop 08/29/18 at 19:16; Status DC Sodium Chloride 1,000 ml @ 1,000 mls/hr 1X ONCE IV Last administered on 08/29/18at 19:44; Start 08/29/18 at 19:15; Stop 08/29/18 at 20:14; Status DC Sodium Chloride 1,000 ml @ 1,000 mls/hr 1X ONCE IV Last administered on 08/29/18at 21:44; Start 08/29/18 at 20:15; Stop 08/29/18 at 21:14; Status DC Levofloxacin/ Dextrose (Levaquin Per Pharmacy) 1 each PRN DAILY PRN MC SEE COMMENTS; Start 08/29/18 at 20:30 Sodium Chloride 1,000 ml @ 75 mls/hr [id number] IV Last administered on 08/29/18at 22:52; Start 08/29/18 at 20:29; Stop 08/30/18 at 20:28 Albuterol/ Ipratropium (Duoneb) 3 ml RTQID NEB ; Start 08/30/18 at 21:00; Stop 08/30/18 at 21:00; Status DC Levofloxacin/ Dextrose 50 ml @ 100 mls/hr Q24H IV Last administered on 08/29/18at 20:55; Start 08/29/18 at 21:00 Albuterol/ Ipratropium (Duoneb) 3 ml RTQID NEB ; Start 08/30/18 at 08:15; Status UNV Active Scripts Active Sophia 5-325 Tablet (Acetaminophen/Hydrocodone Bitart) 1 Each Tablet 1 Tab PO PRN Q6HRS PRN Reported Vascepa (Icosapent Ethyl) 1 Gm Capsule 1 Gm PO BID Proair Respiclick (Albuterol Sulfate) 90 Mcg Aer.pow.ba 1 Puff INH Q4HRS Nortriptyline Hcl 25 Mg Capsule 25 Mg PO DAILY Levemir (Insulin Detemir) 100 Unit/1 Ml Vial 40 Unit SQ HS Folic Acid 1 Mg Tablet 1 Tab PO BID Metformin Hcl 500 Mg Tablet 1 Tab PO BID Novolog Flexpen (Insulin Aspart) 100 Unit/1 Ml Insuln.pen 15 Unit SQ TIDAC Cyclobenzaprine Hcl 10 Mg Tablet 1 Tab PO BID Atorvastatin Calcium 40 Mg Tablet 1 Tab PO QHS Amlodipine Besylate 10 Mg Tablet 0.5 Tab PO HS Losartan-Hctz 100-25 Mg Tab (Losartan/Hydrochlorothiazide) 1 Each Tablet 1 Tab PO DAILY Duloxetine Hcl 60 Mg Capsule.dr 60 Mg PO DAILY Aspirin 81 Mg Tab.chew 1 Tab PO BID Labetalol Hcl 100 Mg Tablet 1 Tab PO BID Allergies Allergies: Coded Allergies: NSAIDS (Non-Steroidal Anti-Inflamma (Verified Allergy, Intermediate, 09/13/16) Tried several. Allergic to all aspirin (Verified Allergy, Intermediate, 10/17/14) upsets stomach diphenhydramine (Verified Allergy, Intermediate, hives, 09/13/16) morphine (Verified Allergy, Intermediate, 10/15/14) Penicillins (Verified Allergy, Unknown, 09/13/16) don't work ROS Review of System Review of Systems Review of Systems Constitutional: Denies fever or chills [] Eyes: Denies change in visual acuity, redness, or eye pain [] HENT: Denies nasal congestion or sore throat [] Respiratory: Denies cough reports shortness of breath [] Cardiovascular: No additional information not addressed in HPI [] GI: Denies abdominal pain, nausea, vomiting, or bloody stools, reports diarrhea [] : Denies dysuria, reports hematuria [] Neurologic: Denies headache, focal weakness or sensory changes [] Endocrine: Denies polyuria or polydipsia [] 14 pt systems were reviewed and found to be within normal limits, except as documented Physical Exam Physical Exam Physical Exam Physical Exam Constitutional: Well developed, well nourished, no acute distress, non-toxic appearance. [] HENT: Normocephalic, atraumatic, bilateral external ears normal, oropharynx dry, no oral exudates, nose normal. [] Eyes: PERRLA, EOMI, conjunctiva normal, no discharge. [] Neck: Normal range of motion, no tenderness, supple, no stridor. [] Cardiovascular:Heart rate regular rhythm, 2/6 systolic murmur noted Lungs & Thorax: Bilateral breath sounds clear to auscultation [] Abdomen: Bowel sounds normal, soft, no tenderness, no masses, no pulsatile masses. [] Skin erythema on the foot and hoff as noted below. Back: No tenderness, no CVA tenderness. [] Extremities: No tenderness, no cyanosis, no clubbing, ROM intact, trace edema. there is ttp and erythema noted to the dorsum of the left foot up to thes hin. pulse present. Neurologic: Alert and oriented X 3, normal motor function, normal sensory function, no focal deficits noted. [] Psychologic: Affect normal, judgement normal, mood normal. [] Vitals Vitals Vital Signs Date Time Temp Pulse Resp B/P (MAP) Pulse Ox O2 Delivery O2 Flow Rate FiO2 08/30/18 07:42 94 Nasal Cannula 2.0 08/30/18 03:00 98.2 82 17 137/51 (79) 98.2 Labs Labs Laboratory Tests Test 08/29/18 18:30 08/29/18 19:24 08/29/18 19:51 08/29/18 21:49 Glucose (Fingerstick) 250 mg/dL (70-99) 161 mg/dL (70-99) White Blood Count 8.4 x10^3/uL (4.0-11.0) Red Blood Count 3.53 x10^6/uL (3.50-5.40) Hemoglobin 11.6 g/dL (12.0-15.5) Hematocrit 33.9 % (36.0-47.0) Mean Corpuscular Volume 96 fL (79-100) Mean Corpuscular Hemoglobin 33 pg (25-35) Mean Corpuscular Hemoglobin Concent 34 g/dL (31-37) Red Cell Distribution Width 15.1 % (11.5-14.5) Platelet Count 272 x10^3/uL (140-400) Neutrophils (%) (Auto) 72 % (31-73) Lymphocytes (%) (Auto) 15 % (24-48) Monocytes (%) (Auto) 11 % (0-9) Eosinophils (%) (Auto) 2 % (0-3) Basophils (%) (Auto) 1 % (0-3) Neutrophils # (Auto) 6.0 x10^3uL (1.8-7.7) Lymphocytes # (Auto) 1.3 x10^3/uL (1.0-4.8) Monocytes # (Auto) 0.9 x10^3/uL (0.0-1.1) Eosinophils # (Auto) 0.1 x10^3/uL (0.0-0.7) Basophils # (Auto) 0.0 x10^3/uL (0.0-0.2) Prothrombin Time 13.9 SEC (11.7-14.0) Prothromb Time International Ratio 1.1 (0.8-1.1) Sodium Level 134 mmol/L (136-145) Potassium Level 4.2 mmol/L (3.5-5.1) Chloride Level 96 mmol/L (98-107) Carbon Dioxide Level 26 mmol/L (21-32) Anion Gap 12 (6-14) Blood Urea Nitrogen 40 mg/dL (7-20) Creatinine 1.5 mg/dL (0.6-1.0) Estimated GFR (Cockcroft-Gault) 33.9 BUN/Creatinine Ratio 27 (6-20) Glucose Level 236 mg/dL (70-99) Calcium Level 9.9 mg/dL (8.5-10.1) Total Bilirubin 0.7 mg/dL (0.2-1.0) Aspartate Amino Transf (AST/SGOT) 48 U/L (15-37) Alanine Aminotransferase (ALT/SGPT) 35 U/L (14-59) Alkaline Phosphatase 57 U/L (46-116) Creatine Kinase 1307 U/L (26-192) Troponin I Quantitative < 0.017 ng/mL (0.000-0.055) Total Protein 7.0 g/dL (6.4-8.2) Albumin 2.9 g/dL (3.4-5.0) Albumin/Globulin Ratio 0.7 (1.0-1.7) Urine Collection Type U cath Urine Color Yellow Urine Clarity Clear Urine pH 6.0 Urine Specific [place] 1.010 Urine Protein Negative mg/dL (NEG-TRACE) Urine Glucose (UA) Negative mg/dL (NEG) Urine Ketones (Stick) Negative mg/dL (NEG) Urine Blood Negative (NEG) Urine Nitrite Negative (NEG) Urine Bilirubin Negative (NEG) Urine Urobilinogen Dipstick 0.2 mg/dL (0.2 mg/dL) Urine Leukocyte Esterase Large (NEG) Urine RBC Occ /HPF (0-2) Urine WBC Tntc /HPF (0-4) Urine Squamous Epithelial Cells Few /LPF Urine Bacteria Few /HPF (0-FEW) Test 08/29/18 23:59 08/30/18 03:50 08/30/18 07:17 Glucose (Fingerstick) 168 mg/dL (70-99) 159 mg/dL (70-99) Sodium Level 134 mmol/L (136-145) Potassium Level 3.4 mmol/L (3.5-5.1) Chloride Level 99 mmol/L (98-107) Carbon Dioxide Level 25 mmol/L (21-32) Anion Gap 10 (6-14) Blood Urea Nitrogen 34 mg/dL (7-20) Creatinine 1.2 mg/dL (0.6-1.0) Estimated GFR (Cockcroft-Gault) 43.9 Glucose Level 207 mg/dL (70-99) Calcium Level 8.9 mg/dL (8.5-10.1) Laboratory Tests Test 08/29/18 18:30 08/29/18 19:24 08/29/18 19:51 08/29/18 21:49 Glucose (Fingerstick) 250 mg/dL (70-99) 161 mg/dL (70-99) White Blood Count 8.4 x10^3/uL (4.0-11.0) Red Blood Count 3.53 x10^6/uL (3.50-5.40) Hemoglobin 11.6 g/dL (12.0-15.5) Hematocrit 33.9 % (36.0-47.0) Mean Corpuscular Volume 96 fL (79-100) Mean Corpuscular Hemoglobin 33 pg (25-35) Mean Corpuscular Hemoglobin Concent 34 g/dL (31-37) Red Cell Distribution Width 15.1 % (11.5-14.5) Platelet Count 272 x10^3/uL (140-400) Neutrophils (%) (Auto) 72 % (31-73) Lymphocytes (%) (Auto) 15 % (24-48) Monocytes (%) (Auto) 11 % (0-9) Eosinophils (%) (Auto) 2 % (0-3) Basophils (%) (Auto) 1 % (0-3) Neutrophils # (Auto) 6.0 x10^3uL (1.8-7.7) Lymphocytes # (Auto) 1.3 x10^3/uL (1.0-4.8) Monocytes # (Auto) 0.9 x10^3/uL (0.0-1.1) Eosinophils # (Auto) 0.1 x10^3/uL (0.0-0.7) Basophils # (Auto) 0.0 x10^3/uL (0.0-0.2) Prothrombin Time 13.9 SEC (11.7-14.0) Prothromb Time International Ratio 1.1 (0.8-1.1) Sodium Level 134 mmol/L (136-145) Potassium Level 4.2 mmol/L (3.5-5.1) Chloride Level 96 mmol/L (98-107) Carbon Dioxide Level 26 mmol/L (21-32) Anion Gap 12 (6-14) Blood Urea Nitrogen 40 mg/dL (7-20) Creatinine 1.5 mg/dL (0.6-1.0) Estimated GFR (Cockcroft-Gault) 33.9 BUN/Creatinine Ratio 27 (6-20) Glucose Level 236 mg/dL (70-99) Calcium Level 9.9 mg/dL (8.5-10.1) Total Bilirubin 0.7 mg/dL (0.2-1.0) Aspartate Amino Transf (AST/SGOT) 48 U/L (15-37) Alanine Aminotransferase (ALT/SGPT) 35 U/L (14-59) Alkaline Phosphatase 57 U/L (46-116) Creatine Kinase 1307 U/L (26-192) Troponin I Quantitative < 0.017 ng/mL (0.000-0.055) Total Protein 7.0 g/dL (6.4-8.2) Albumin 2.9 g/dL (3.4-5.0) Albumin/Globulin Ratio 0.7 (1.0-1.7) Urine Collection Type U cath Urine Color Yellow Urine Clarity Clear Urine pH 6.0 Urine Specific [place] 1.010 Urine Protein Negative mg/dL (NEG-TRACE) Urine Glucose (UA) Negative mg/dL (NEG) Urine Ketones (Stick) Negative mg/dL (NEG) Urine Blood Negative (NEG) Urine Nitrite Negative (NEG) Urine Bilirubin Negative (NEG) Urine Urobilinogen Dipstick 0.2 mg/dL (0.2 mg/dL) Urine Leukocyte Esterase Large (NEG) Urine RBC Occ /HPF (0-2) Urine WBC Tntc /HPF (0-4) Urine Squamous Epithelial Cells Few /LPF Urine Bacteria Few /HPF (0-FEW) Test 08/29/18 23:59 08/30/18 03:50 08/30/18 07:17 Glucose (Fingerstick) 168 mg/dL (70-99) 159 mg/dL (70-99) Sodium Level 134 mmol/L (136-145) Potassium Level 3.4 mmol/L (3.5-5.1) Chloride Level 99 mmol/L (98-107) Carbon Dioxide Level 25 mmol/L (21-32) Anion Gap 10 (6-14) Blood Urea Nitrogen 34 mg/dL (7-20) Creatinine 1.2 mg/dL (0.6-1.0) Estimated GFR (Cockcroft-Gault) 43.9 Glucose Level 207 mg/dL (70-99) Calcium Level 8.9 mg/dL (8.5-10.1) Images Images MRI lumbar, 09/05/16: FINDINGS Lumbar vertebral body stature is unchanged. There is now grade 1 anterior spondylolisthesis at L3-4. There is very minimal posterior subluxation L1 relative to L2 and negligible posterior subluxation L2 relative to L3. There is again advanced degenerative disc disease at L4-5 and to a lesser degree at L5-S1, somewhat greater degree of moderate degenerative disc disease at L3-4 to a lesser degree at L2-3 and L1-2. Conus terminates at L1. There is new mild L3-4 endplate edema and minimally of the superior, posterior corner of L3 probably reactive/degenerative in etiology. There is very mild lumbar levoscoliosis. T12-L1: Spinal canal and neural foramina are adequate. There is mild buckling of the ligamentum flavum. L1-2: There is again disc osteophyte complex more eccentric into the far left lateral recess and inferior left neural foramina also posterior bulge. There is mild to moderate buckling of the ligamentum flavum and mild facet hypertrophic change. There is overall mild to moderate narrowing of the spinal canal with left greater than right lateral recess stenosis. There is likely mild narrowing of the left neural foramen, right neural foramen overall adequate. L2-L3: There is fairly severe buckling of the ligamentum flavum and mild to moderate facet degenerative change. There is more prominent posterior bulge/protrusion. There is increased severe spinal stenosis with near complete effacement of subarachnoid space. Neural foramina are overall adequate. L3-4: There has been interval posterior decompression. There is moderate facet hypertrophic change greater on the right. There is posterior bulge/protrusion. Previously there was a greater degree of spinal stenosis, residual mild to moderate narrowing of the thecal sac. There is mild narrowing of the inferior neural foramina. L4-5: There has been interval posterior decompression. There is minimal posterior bulge. There is mild narrowing of the far lateral recesses bilaterally, central canal now adequate. There is very minimal narrowing of the inferior neural foramina. L5-S1: There has been posterior decompression. There is again disc osteophyte complex and superimposed broad bulge/protrusion. There is again contact of the descending left S1 nerve root without displacement. There is again moderate narrowing of the left neural foramen with contact undersurface exiting left L5 nerve root, mild narrowing on the right. IMPRESSION 1. Comparing with the 2015 exam, there is increased severe spinal stenosis L2-3, mild to moderate spinal stenosis at L1-L2. There has been posterior decompression L3-4 to L5-S1. 2. There is multilevel neural foramina compromise as stated greatest on the left at L5-S1. 3. There is now grade 1 anterior spondylolisthesis at L3-4, minimal posterior subluxation L1 relative to L2 and L2 relative to L3. There is multilevel lumbar facet degenerative change. 4. There is again more advanced degenerative disc disease at L4-5 and to a lesser degree at L5-S1. There is greater degree of moderate degenerative disc disease at L3-4, to a lesser degree at L1-L2 and L2-3. L3-4 endplate edema is likely reactive/degenerative in etiology. REASON: found down, ams. has xray too PROCEDURE: CT HEAD WO CONTRAST CT HEAD WO CONTRAST Indication: found down, ams. has xray too Exposure: One or more of the following individualized dose reduction techniques were utilized for this examination: 1. Automated exposure control 2. Adjustment of the mA and/or kV according to patient size 3. Use of iterative reconstruction technique. Technique: Standard imaging without intravenous contrast. No evidence of acute intracranial hemorrhage, mass effect, midline shift or abnormal extra-axial fluid collection. Mild prominence of ventricles and sulci compatible with mild atrophy. Low-density in the white matter bilaterally, a nonspecific finding, but which is commonly due to chronic small vessel ischemic disease in a patient of this age.. The visualized sinuses are clear. No evidence of depressed skull fracture. Orbits are symmetric. No significant scalp hematoma. IMPRESSION: Chronic findings, no evidence of acute intracranial hemorrhage. Electronically signed by: Aren Matthews MD (08/29/2018 7:51 PM) [facility] VTE Prophylaxis Ordered VTE Prophylaxis Devices: No VTE Pharmacological Prophylaxi: Yes Assessment/Plan Assessment/Plan impression 1.syncope and Episodes of lower extremity weakness probably related to her back pain, spinal stenosis and peripheral neuropathy due to spinal stenosis as well as diabetes mellitus. Mild prominence of ventricles and sulci compatible with mild atrophy. Low- density in the white matter bilaterally, a nonspecific finding, but which is commonly due to chronic small vessel ischemic disease in a patient of this age.. 2. Diabetes mellitus type 2. 3. Hypertension, hypertensive cardiovascular disease. 4. Hyperlipidemia. 5. Diastolic congestive heart failure.hx 6. uti 7. Comparing with the 2015 exam, there is increased severe spinal stenosis in 2017 L2-3, mild to moderate spinal stenosis at L1-L2. There has been posterior decompression L3-4 to L5-S1. 8. There is multilevel neural foramina compromise as stated greatest on the left at L5-S1. 9. There is now grade 1 anterior spondylolisthesis at L3-4, minimal posterior subluxation L1 relative to L2 and L2 relative to L3. There is multilevel lumbar facet degenerative change. 9. There is more advanced degenerative disc disease at L4-5 10. hypokalemia plan admit tele neurochecks q 4 hrs neurology consult echo doppler carotids bilateral emperic iv antibiotics, levaquin accuchecks consult dr EDWARD dvt prophylaxis 78 MIN pt exam, chart review, > 50% of time spent with exam, chart review, pt care coordination MARISOL LEMOS MD August 30, 2018 08:08
[2018-08-30] MEDS: IPRATRPIUM/ALBUTEROL 0.5/2.5MG 3 ML NEBU. NEB SCH ×4 (08:16→21:15)
[2018-08-30] MEDS ORDERED: POTASSIUM CHLORIDE 20 MEQ TABLET.ER. PO ONE (10:15)
[2018-08-30] MEDS ORDERED: HYDROcodone/APAP 5/325MG 1 TAB TABLET PO PRN (10:30)
--- NOTE | 2018-08-30 10:42 | NUR ---
SW following pt for anticipated dc needs. Chart reviewed. Pt lives at home with alone. PT/OT pending. SW will await for PT/OT recommendation to assess skilled needs. No other SW needs noted at this time. Will continue to follow.
[2018-08-30 11:00] VITALS: BP 153/67
[2018-08-30] MEDS: amLODIPine BESYLATE 5 MG TABLET PO SCH (11:00)
[2018-08-30] MEDS: predniSONE 10 MG TABLET PO SCH (11:00)
[2018-08-30] MEDS: NORTRIPTYLINE 25 MG CAPSULE PO SCH (11:00)
[2018-08-30] MEDS: ASPIRIN CHEWABLE 81 MG TABLET. PO SCH ×2 (11:00→20:55)
[2018-08-30] MEDS: FOLIC ACID 1 MG TABLET. PO SCH ×2 (11:01→20:55)
[2018-08-30] MEDS: DULoxetine HCL 30 MG CAPSULE.DR PO SCH (11:01)
[2018-08-30] MEDS: LABETALOL HCL 100 MG TABLET. PO SCH ×2 (11:01→20:56)
[2018-08-30] MEDS: IRON POLYSACCHARIDE COMPLEX 150 MG CAPSULE PO SCH ×2 (11:15→20:55)
[2018-08-30] MEDS: PANTOPRAZOLE 40 MG TABLET.DR. PO SCH (11:15)
[2018-08-30] MEDS ORDERED: DEXTROSE 50% 25 GM / 50ML DISP.SYRIN. IV PRN (11:45)
[2018-08-30] MEDS ORDERED: NON FORMULARY ITEM (Albuterol Sulfate (Proair Respiclick) 1 PUFF) INH SCH (12:00)
--- NOTE | 2018-08-30 12:00 | PDOC2 ---
NEUROLOGY CONSULT Date of Admission Date of Admission DATE: 08/30/18 TIME: 11:46 Reason for Consult Reason for Consult: Weakness, syncope Referring Physician Referring Physician: Dr. Lala PCP: Dr. Burgess Source Source: Chart review, Patient History of Present Illness History of Present Illness The patient is a 73-year-old right-handed female who awakened 2 mornings ago with lightheadedness and fell to the floor. The next thing she knows she woke up nearly 12 hours later. She checked her blood sugar and it was a in the 50s. She drinks some soda and ate a cookie. She has had some diarrhea and blood in the stool as well as in the urine, and about 2 weeks ago she received a Z-William and inhaler for upper respiratory infection. She feels like her left leg is still weak and gave out on her. She denies any history of stroke or seizure. I saw her 2 years ago when she had a similar episode of weakness related to back pain and stress from living with her daughter. Patient now lives in independent living but forgot that she had a pull cord in her apartment that she could have used. She did not show up to our emergency room until yesterday. Past Medical History Cardiovascular: HTN, Hyperlipidemia Pulmonary: Other (sleep apnea) CENTRAL NERVOUS SYSTEM: Periperal neuropathy GI: Hemorrhoids Heme/Onc: Cancer (:) Psych: Anxiety, Depression Musculoskeletal: low back pain Renal/: Chronic renal insuff Endocrine: Diabetes Past Surgical History Past Surgical History: Appendectomy, Cataract Removal, Tonsillectomy, Hysterectomy, Colon Resection, Other (lumbar laminectomy, right foot, right rotator cuff; R ankle; left foot, breast, carpal tunnel) Family History Family History: Cancer, CAD Social History Social History Lives alone, no alcohol or tobacco Current Medications Current Medications Current Medications Albuterol/ Ipratropium (Duoneb) 3 ml 1X ONCE NEB Last administered on 08/29/18at 19:42; Start 08/29/18 at 19:15; Stop 08/29/18 at 19:16; Status DC Sodium Chloride 1,000 ml @ 1,000 mls/hr 1X ONCE IV Last administered on 08/29/18at 19:44; Start 08/29/18 at 19:15; Stop 08/29/18 at 20:14; Status DC Sodium Chloride 1,000 ml @ 1,000 mls/hr 1X ONCE IV Last administered on 08/29/18at 21:44; Start 08/29/18 at 20:15; Stop 08/29/18 at 21:14; Status DC Levofloxacin/ Dextrose (Levaquin Per Pharmacy) 1 each PRN DAILY PRN MC SEE COMMENTS; Start 08/29/18 at 20:30 Sodium Chloride 1,000 ml @ 75 mls/hr [id number] IV Last administered on 08/29/18at 22:52; Start 08/29/18 at 20:29; Stop 08/30/18 at 20:28 Albuterol/ Ipratropium (Duoneb) 3 ml RTQID NEB ; Start 08/30/18 at 21:00; Stop 08/30/18 at 21:00; Status DC Levofloxacin/ Dextrose 50 ml @ 100 mls/hr Q24H IV Last administered on 08/29/18at 20:55; Start 08/29/18 at 21:00 Albuterol/ Ipratropium (Duoneb) 3 ml RTQID NEB Last administered on 08/30/18at 08:16; Start 08/30/18 at 08:15 Levofloxacin/ Dextrose 50 ml @ 50 mls/hr Q24H IV ; Start 08/30/18 at 08:30; S kaitlin ESCOBAR Potassium Chloride (Klor-Con) 40 meq 1X ONCE PO Last administered on 08/30/18at 10:59; Start 08/30/18 at 10:15; Stop 08/30/18 at 10:16; Status DC Potassium Chloride (Klor-Con) 20 meq DAILYWBKFT PO ; Start 08/31/18 at 08:00 Amlodipine Besylate (Norvasc) 5 mg DAILY PO Last administered on 08/30/18at 11:00; Start 08/30/18 at 11:00 Aspirin (Children'S Aspirin) 81 mg BID PO Last administered on 08/30/18at 11:00; Start 08/30/18 at 11:00 Folic Acid (Folic Acid) 1 mg BID PO Last administered on 08/30/18at 11:01; Start 08/30/18 at 11:00 Acetaminophen/ Hydrocodone Bitart (Lortab 5/325) 1 tab PRN Q6HRS PRN PO MODERATE PAIN; Start 08/30/18 at 10:30 Nortriptyline HCl (Pamelor) 25 mg DAILY PO Last administered on 08/30/18at 11:00; Start 08/30/18 at 11:00 Non-Formulary Medication (Albuterol Sulfate (Proair Respiclick)) 1 puff Q4HRS INH ; Start 08/30/18 at 12:00; Status UNV Duloxetine HCl (Cymbalta) 60 mg DAILY PO Last administered on 08/30/18at 11:01; Start 08/30/18 at 11:00 Non-Formulary Medication (Icosapent Ethyl (Vascepa)) 1 gm BID PO ; Start 08/30/18 at 21:00; Status UNV Insulin Glargine (Lantus) 40 units QHS SQ ; Start 08/30/18 at 21:00 Labetalol HCl (Trandate) 100 mg BID PO Last administered on 08/30/18at 11:01; Start 08/30/18 at 11:00 Prednisone (Prednisone) 10 mg DAILY PO Last administered on 08/30/18at 11:00; Start 08/30/18 at 10:45 Pantoprazole Sodium (Protonix) 40 mg DAILYAC PO Last administered on 08/30/18at 11:15; Start 08/30/18 at 11:30 Albuterol Sulfate (Ventolin Neb Soln) 2.5 mg Q4HRS@0000,0400 NEB ; Start 08/31/18 at 00:00 Polysaccharide Iron Complex (Niferex 150) 150 mg BID PO Last administered on 08/30/18at 11:15; Start 08/30/18 at 11:00 Insulin Human Lispro (HumaLOG) 0-5 UNITS TIDWMEALS SQ ; Start 08/30/18 at 12:00 Dextrose (Dextrose 50%-Water Syringe) 12.5 gm PRN Q15MIN PRN IV SEE COMMENTS; Start 08/30/18 at 11:45 Active Scripts Active [place] 5-325 Tablet (Acetaminophen/Hydrocodone Bitart) 1 Each Tablet 1 Tab PO PRN Q6HRS PRN Reported Vascepa (Icosapent Ethyl) 1 Gm Capsule 1 Gm PO BID Proair Respiclick (Albuterol Sulfate) 90 Mcg Aer.pow.ba 1 Puff INH Q4HRS Nortriptyline Hcl 25 Mg Capsule 25 Mg PO DAILY Levemir (Insulin Detemir) 100 Unit/1 Ml Vial 40 Unit SQ HS Folic Acid 1 Mg Tablet 1 Tab PO BID Metformin Hcl 500 Mg Tablet 1 Tab PO BID Novolog Flexpen (Insulin Aspart) 100 Unit/1 Ml Insuln.pen 15 Unit SQ TIDAC Cyclobenzaprine Hcl 10 Mg Tablet 1 Tab PO BID Atorvastatin Calcium 40 Mg Tablet 1 Tab PO QHS Amlodipine Besylate 10 Mg Tablet 0.5 Tab PO HS Losartan-Hctz 100-25 Mg Tab (Losartan/Hydrochlorothiazide) 1 Each Tablet 1 Tab PO DAILY Duloxetine Hcl 60 Mg Capsule.dr 60 Mg PO DAILY Aspirin 81 Mg Tab.chew 1 Tab PO BID Labetalol Hcl 100 Mg Tablet 1 Tab PO BID Allergies Allergies: Coded Allergies: NSAIDS (Non-Steroidal Anti-Inflamma (Verified Allergy, Intermediate, 09/13/16) Tried several. Allergic to all aspirin (Verified Allergy, Intermediate, 10/17/14) upsets stomach diphenhydramine (Verified Allergy, Intermediate, hives, 09/13/16) morphine (Verified Allergy, Intermediate, 10/15/14) Penicillins (Verified Allergy, Unknown, 09/13/16) don't work ROS Review of System Negative for fever, chills, weight loss, shortness of breath, chest pain, indigestion, hematochezia, melena, and dysuria. Full 14-point review of systems is negative. Physical Exam Physical Examination General: Well-developed, well-nourished white female in no acute distress HEENT: Normocephalic andatraumatic. Temporal arteriespulsatile and nontender. Neck: Supple without bruit, no meningismus Musculoskeletal: Stability:see neurologic. Gait exam:see neurologic. Tone:see neurologic.Strength:see neurologic. Neurological: Mental Status:intact, orientation, memory, attention span/concentration, language, fund of knowledge normal. Cranial Nerves:Pupils equal and reactive to light, extraocular movements areintact, visual sherman are full to confrontation. Facial sensation is normal. There is no facial asymmetry. Vestibulo-ocular reflex is intact. Palate elevates and tongue protrudes in midline. All other cranial related problems are negative except as mentioned before.Reflexes:1+ and symmetric with flexor plantar responses. Motor:5/5 strength, 4/5 left leg, with normal tone and bulk. Coordination:Finger-nose finger and haup-qk-fozy testing are normal. Rapid alternating movements and fine finger movements are intact. Gait:apraxic. Sensory:stocking loss, worse in left leg Vitals VITALS Vital Signs Date Time Temp Pulse Resp B/P (MAP) Pulse Ox O2 Delivery O2 Flow Rate FiO2 08/30/18 11:01 98 153/67 08/30/18 08:19 97 Room Air 08/30/18 07:42 2.0 08/30/18 07:00 98.4 17 98.4 Labs Labs Laboratory Tests Test 08/29/18 18:30 08/29/18 19:24 08/29/18 19:51 08/29/18 21:49 Glucose (Fingerstick) 250 mg/dL (70-99) 161 mg/dL (70-99) White Blood Count 8.4 x10^3/uL (4.0-11.0) Red Blood Count 3.53 x10^6/uL (3.50-5.40) Hemoglobin 11.6 g/dL (12.0-15.5) Hematocrit 33.9 % (36.0-47.0) Mean Corpuscular Volume 96 fL (79-100) Mean Corpuscular Hemoglobin 33 pg (25-35) Mean Corpuscular Hemoglobin Concent 34 g/dL (31-37) Red Cell Distribution Width 15.1 % (11.5-14.5) Platelet Count 272 x10^3/uL (140-400) Neutrophils (%) (Auto) 72 % (31-73) Lymphocytes (%) (Auto) 15 % (24-48) Monocytes (%) (Auto) 11 % (0-9) Eosinophils (%) (Auto) 2 % (0-3) Basophils (%) (Auto) 1 % (0-3) Neutrophils # (Auto) 6.0 x10^3uL (1.8-7.7) Lymphocytes # (Auto) 1.3 x10^3/uL (1.0-4.8) Monocytes # (Auto) 0.9 x10^3/uL (0.0-1.1) Eosinophils # (Auto) 0.1 x10^3/uL (0.0-0.7) Basophils # (Auto) 0.0 x10^3/uL (0.0-0.2) Prothrombin Time 13.9 SEC (11.7-14.0) Prothromb Time International Ratio 1.1 (0.8-1.1) Sodium Level 134 mmol/L (136-145) Potassium Level 4.2 mmol/L (3.5-5.1) Chloride Level 96 mmol/L (98-107) Carbon Dioxide Level 26 mmol/L (21-32) Anion Gap 12 (6-14) Blood Urea Nitrogen 40 mg/dL (7-20) Creatinine 1.5 mg/dL (0.6-1.0) Estimated GFR (Cockcroft-Gault) 33.9 BUN/Creatinine Ratio 27 (6-20) Glucose Level 236 mg/dL (70-99) Calcium Level 9.9 mg/dL (8.5-10.1) Total Bilirubin 0.7 mg/dL (0.2-1.0) Aspartate Amino Transf (AST/SGOT) 48 U/L (15-37) Alanine Aminotransferase (ALT/SGPT) 35 U/L (14-59) Alkaline Phosphatase 57 U/L (46-116) Creatine Kinase 1307 U/L (26-192) Troponin I Quantitative < 0.017 ng/mL (0.000-0.055) Total Protein 7.0 g/dL (6.4-8.2) Albumin 2.9 g/dL (3.4-5.0) Albumin/Globulin Ratio 0.7 (1.0-1.7) Urine Collection Type U cath Urine Color Yellow Urine Clarity Clear Urine pH 6.0 Urine Specific [place] 1.010 Urine Protein Negative mg/dL (NEG-TRACE) Urine Glucose (UA) Negative mg/dL (NEG) Urine Ketones (Stick) Negative mg/dL (NEG) Urine Blood Negative (NEG) Urine Nitrite Negative (NEG) Urine Bilirubin Negative (NEG) Urine Urobilinogen Dipstick 0.2 mg/dL (0.2 mg/dL) Urine Leukocyte Esterase Large (NEG) Urine RBC Occ /HPF (0-2) Urine WBC Tntc /HPF (0-4) Urine Squamous Epithelial Cells Few /LPF Urine Bacteria Few /HPF (0-FEW) Test 08/29/18 23:59 08/30/18 03:50 08/30/18 04:00 08/30/18 07:17 Glucose (Fingerstick) 168 mg/dL (70-99) 159 mg/dL (70-99) Sodium Level 134 mmol/L (136-145) Potassium Level 3.4 mmol/L (3.5-5.1) Chloride Level 99 mmol/L (98-107) Carbon Dioxide Level 25 mmol/L (21-32) Anion Gap 10 (6-14) Blood Urea Nitrogen 34 mg/dL (7-20) Creatinine 1.2 mg/dL (0.6-1.0) Estimated GFR (Cockcroft-Gault) 43.9 Glucose Level 207 mg/dL (70-99) Uric Acid 8.5 mg/dL (2.6-6.0) Calcium Level 8.9 mg/dL (8.5-10.1) Creatine Kinase 1090 U/L (26-192) Test 08/30/18 11:23 Glucose (Fingerstick) 242 mg/dL (70-99) Laboratory Tests Test 08/29/18 18:30 08/29/18 19:24 08/29/18 19:51 08/29/18 21:49 Glucose (Fingerstick) 250 mg/dL (70-99) 161 mg/dL (70-99) White Blood Count 8.4 x10^3/uL (4.0-11.0) Red Blood Count 3.53 x10^6/uL (3.50-5.40) Hemoglobin 11.6 g/dL (12.0-15.5) Hematocrit 33.9 % (36.0-47.0) Mean Corpuscular Volume 96 fL (79-100) Mean Corpuscular Hemoglobin 33 pg (25-35) Mean Corpuscular Hemoglobin Concent 34 g/dL (31-37) Red Cell Distribution Width 15.1 % (11.5-14.5) Platelet Count 272 x10^3/uL (140-400) Neutrophils (%) (Auto) 72 % (31-73) Lymphocytes (%) (Auto) 15 % (24-48) Monocytes (%) (Auto) 11 % (0-9) Eosinophils (%) (Auto) 2 % (0-3) Basophils (%) (Auto) 1 % (0-3) Neutrophils # (Auto) 6.0 x10^3uL (1.8-7.7) Lymphocytes # (Auto) 1.3 x10^3/uL (1.0-4.8) Monocytes # (Auto) 0.9 x10^3/uL (0.0-1.1) Eosinophils # (Auto) 0.1 x10^3/uL (0.0-0.7) Basophils # (Auto) 0.0 x10^3/uL (0.0-0.2) Prothrombin Time 13.9 SEC (11.7-14.0) Prothromb Time International Ratio 1.1 (0.8-1.1) Sodium Level 134 mmol/L (136-145) Potassium Level 4.2 mmol/L (3.5-5.1) Chloride Level 96 mmol/L (98-107) Carbon Dioxide Level 26 mmol/L (21-32) Anion Gap 12 (6-14) Blood Urea Nitrogen 40 mg/dL (7-20) Creatinine 1.5 mg/dL (0.6-1.0) Estimated GFR (Cockcroft-Gault) 33.9 BUN/Creatinine Ratio 27 (6-20) Glucose Level 236 mg/dL (70-99) Calcium Level 9.9 mg/dL (8.5-10.1) Total Bilirubin 0.7 mg/dL (0.2-1.0) Aspartate Amino Transf (AST/SGOT) 48 U/L (15-37) Alanine Aminotransferase (ALT/SGPT) 35 U/L (14-59) Alkaline Phosphatase 57 U/L (46-116) Creatine Kinase 1307 U/L (26-192) Troponin I Quantitative < 0.017 ng/mL (0.000-0.055) Total Protein 7.0 g/dL (6.4-8.2) Albumin 2.9 g/dL (3.4-5.0) Albumin/Globulin Ratio 0.7 (1.0-1.7) Urine Collection Type U cath Urine Color Yellow Urine Clarity Clear Urine pH 6.0 Urine Specific [place] 1.010 Urine Protein Negative mg/dL (NEG-TRACE) Urine Glucose (UA) Negative mg/dL (NEG) Urine Ketones (Stick) Negative mg/dL (NEG) Urine Blood Negative (NEG) Urine Nitrite Negative (NEG) Urine Bilirubin Negative (NEG) Urine Urobilinogen Dipstick 0.2 mg/dL (0.2 mg/dL) Urine Leukocyte Esterase Large (NEG) Urine RBC Occ /HPF (0-2) Urine WBC Tntc /HPF (0-4) Urine Squamous Epithelial Cells Few /LPF Urine Bacteria Few /HPF (0-FEW) Test 08/29/18 23:59 08/30/18 03:50 08/30/18 04:00 08/30/18 07:17 Glucose (Fingerstick) 168 mg/dL (70-99) 159 mg/dL (70-99) Sodium Level 134 mmol/L (136-145) Potassium Level 3.4 mmol/L (3.5-5.1) Chloride Level 99 mmol/L (98-107) Carbon Dioxide Level 25 mmol/L (21-32) Anion Gap 10 (6-14) Blood Urea Nitrogen 34 mg/dL (7-20) Creatinine 1.2 mg/dL (0.6-1.0) Estimated GFR (Cockcroft-Gault) 43.9 Glucose Level 207 mg/dL (70-99) Uric Acid 8.5 mg/dL (2.6-6.0) Calcium Level 8.9 mg/dL (8.5-10.1) Creatine Kinase 1090 U/L (26-192) Test 08/30/18 11:23 Glucose (Fingerstick) 242 mg/dL (70-99) Images Images CT HEAD WO CONTRAST No evidence of acute intracranial hemorrhage, mass effect, midline shift or abnormal extra-axial fluid collection. Mild prominence of ventricles and sulci compatible with mild atrophy. Low-density in the white matter bilaterally, a nonspecific finding, but which is commonly due to chronic small vessel ischemic disease in a patient of this age.. The visualized sinuses are clear. No evidence of depressed skull fracture. Orbits are symmetric. No significant scalp hematoma. IMPRESSION: Chronic findings, no evidence of acute intracranial hemorrhage. Assessment/Plan Assessment/Plan Impression: * Fall, prolonged time on the floor, with rhabdomyolysis, doubt that she had a s troke but need to keep it in consideration. * Diabetic peripheral neuropathy. * Chronic low back pain, doubt acute radiculopathy but will keep that in mind as well. Recommendations: * Await carotid Doppler results * Agree with holding statin for now * I see that Dr. Akhtar has started prednisone * MRI of the brain * I will consider MRI of the lumbar spine depending on her course * Rehabilitation modalities. Thank you for letting me help with the patient's care. MIREYA CHEW MD August 30, 2018 12:00
--- NOTE | 2018-08-30 12:02 | NUR ---
Dr. Lala requested telemetry bed due to patient's syncope episode yesterday. This RN gave report to Hodan NGUYEN. This RN reached out to both daughter's with no return call yet, patient also left voicemail for daughters on personal phone regarding transfer. Patient transferred upstairs via wheelchair with Marisela COTO and this RN. Patient settled in new room.
--- NOTE | 2018-08-30 12:04 | RAD ---
EXAM: Carotid Doppler sonogram. HISTORY: Syncope. TECHNIQUE: Hanna scale and color Doppler sonographic evaluation of the neck with spectral waveform analysis was performed and static images are submitted for review. FINDINGS: There is mild atherosclerotic plaque within the carotid bulbs and proximal and external carotid arteries. The peak systolic velocity within the right common carotid artery is 122 cm/sec. The peak systolic velocity within the right internal carotid artery is 119 cm/sec and the end diastolic velocity within the right internal carotid artery is 24 cm/sec. The right ICA/CCA ratio is 1.03. The peak systolic velocity within the left common carotid artery is 118 cm/sec. The peak systolic velocity within the left internal carotid artery is 118 cm/sec and the end diastolic velocity within the left internal carotid artery is 24 cm/sec. The left ICA/CCA ratio is 1.16. There is normal antegrade flow within both vertebral arteries. IMPRESSION: No convincing Doppler evidence of greater than 50% stenosis within the internal carotid arteries or hemodynamically significant stenosis involving the vertebral arteries. PQRS Compliance Statement - Stenosis calculations for CT, MR and conventional angiography are based upon measurement of the distal ICA diameter in accordance with the NASCET methodology. Stenosis calculations for carotid ultrasound studies are derived from validated velocity criteria which are known to correlate with the NASCET methodology. Electronically signed by: Fela Goldstein MD (08/30/2018 12:01 PM) [id number]
[2018-08-30] MEDS: INSULIN LISPRO 300 UNITS/3 ML INSULN.PEN. SQ SCH ×2 (12:33→17:45)
[2018-08-30 19:25] VITALS: BP 144/63
[2018-08-30] MEDS: NON FORMULARY ITEM (Icosapent Ethyl (Vascepa) 1 GM) PO SCH (20:56)
[2018-08-30] MEDS ORDERED: IPRATRPIUM/ALBUTEROL 0.5/2.5MG 3 ML NEBU. NEB SCH (21:00)
[2018-08-30] MEDS: INSULIN GLARGINE 300 UNITS/3 ML INSULN.PEN. SQ SCH (21:00)
[2018-08-30 23:25] VITALS: BP 133/67
[2018-08-31 03:25] VITALS: BP 180/63
--- NOTE | 2018-08-31 03:29 | CONS ---
DATE OF CONSULTATION: 08/30/2018 ATTENDING PHYSICIAN: Uziel Lala M.D. REASON FOR CONSULTATION: The patient was seen at the request of Dr. Lala for rehab evaluation. HISTORY OF PRESENT ILLNESS: This is a 73-year-old right-handed female patient who was admitted through the Emergency Room last night. She woke up telephonic case manager of 08/29/2018 to go to the restroom and she was on the floor and she did not wake up until around 3:30 in the afternoon. She checked her blood sugar, which was in the low 50s. She had some cookie and soda. Blood sugars elevated to 170s. The patient apparently had 1 episode of diarrhea. She denies any blood in the stool but admits some blood in her urine. She denies any dysuria. She had urinary frequency, going on long time and had to go to the bathroom every 2-3 hours. She was recently treated for urinary tract infection about 2 weeks ago, had received Z-William. The patient denies any back pain but admits pain and swelling in her left ankle for the last 1 week. She apparently was treated for gouty arthritis, left ankle about 4 weeks ago. She also recently got treated for bronchitis with inhalers with significant help. PAST MEDICAL HISTORY: Also significant for diabetes mellitus type 2, hypercholesterolemia, hypertension, chronic kidney disease, appendectomy, hysterectomy, lumbar laminectomy, tonsillectomy, right foot rotator cuff, right ankle and left foot surgery, also coronary artery disease, peripheral neuropathy, chronic constipation, hemorrhoids, inflammatory bowel disease, anxiety, depression, osteoarthritis, chronic lower back pain but she denies any significant back pain at present time and chronic renal insufficiency. ALLERGIES: She is known allergic to NONSTEROIDAL ANTI-INFLAMMATORY MEDICATION, PENICILLIN, ASPIRIN, DIPHENHYDRAMINE and MORPHINE. SOCIAL HISTORY: She lives in a high-rise apartment and has been independent with her mobility and self-care skills and does not use any assistive device to get around. FAMILY HISTORY: Obesity. The patient admits some catching sensation in her left middle finger and right index finger. PHYSICAL EXAMINATION: Today revealed an elderly female. She is alert, oriented to time, place, person and circumstance and follows commands appropriately, moves all 4 extremities voluntarily where she had 4/5 to 5/5 grade muscle strength with relatively increased weakness around left ankle secondary to pain. She had tenderness to palpation over left ankle and left tendo Achilles. No crepitus on range of motion of her ankle. She had crepitus on range of motion of her knees. She had tenderness to palpation over medial knee joint line over lumbar paraspinal muscles extending over to sacroiliac joint area and right trochanteric bursa and she also had tenderness to palpation over upper trapezius muscles bilaterally. She is independent with bed mobility and transfers and she got up and walks using a roller walker without any dizziness or any increased pain in her ankle or foot area while weightbearing. The patient had tenderness to palpation over the palmar aspect of right index finger and left middle finger at the metacarpophalangeal joint area with mild triggering. She had hand intrinsic muscle atrophy. Negative Tinel sign over median nerve at the wrist and over ulnar nerve at the wrist and elbow. She had equal perception of touch and pinprick sensation bilaterally. Deep tendon reflexes are absent at both knees and ankles. She had callus deformity over plantar aspect of left big toe. She had pain free range of motion of her hip joints. ASSESSMENT: An elderly female with diabetes mellitus with peripheral neuropathy, degenerative joint disease of both knees. The patient is status post lumbar spine surgery with radiological evidence of degenerative disk disease and degenerative joint disease of lumbar vertebrae with lumbar spinal stenosis, but no clinical evidence of ongoing lumbar radiculopathy and she denies any significant back pain right now. She also presents with mild right trochanteric bursitis, degenerative joint disease of both knees and left ankle tendinitis with probable associated cellulitis to rule out gouty arthritis, left ankle. The patient with known coronary artery disease, congestive heart failure, hypertension, hyperlipidemia, anxiety, depression and chronic renal insufficiency. RECOMMENDATIONS: To try physical modalities to her left ankle to start her on prednisone as an anti-inflammatory medication as she could not take any nonsteroidal anti-inflammatory medication. I am not sure she can take colchicine at least to wait until we will get a uric acid level. Dr. Lala, I appreciate asking me to participate in the care of this interesting patient. I will be glad to follow her with you as needed for rehabilitation. AGUS EDWARD MD DR: MARK ANTHONY/dominique JOB#: [id number] / [id number]
[2018-08-31] MEDS: ALBUTEROL SULFATE 2.5 MG/3 ML NEBU. NEB SCH ×2 (04:00)
[2018-08-31 05:14] LABS: BASO % 1 % (0-3); EOS # 0.1 x10^3/uL (0.0-0.7); EOS % 2 % (0-3); HEMATOCRIT 32.3 % (36.0-47.0); HEMOGLOBIN 10.7 g/dL (12.0-15.5); LYMPH # 1.8 x10^3/uL (1.0-4.8); LYMPH % 30 % (24-48); MEAN CORPUSCULAR HEMOGLOBIN 32 pg (25-35); MEAN CORPUSCULAR HGB CONC 33 g/dL (31-37); MEAN CORPUSCULAR VOLUME 97 fL (79-100); MONO # 0.5 x10^3/uL (0.0-1.1); MONO % 9 % (0-9); NEUT # 3.6 x10^3uL (1.8-7.7); NEUT % 59 % (31-73); PLATELET COUNT 254 x10^3/uL (140-400); RED BLOOD COUNT 3.34 x10^6/uL (3.50-5.40); WHITE BLOOD COUNT 6.1 x10^3/uL (4.0-11.0)
[2018-08-31 05:41] LABS: ALBUMIN 2.7 g/dL (3.4-5.0); CALCIUM 9.4 mg/dL (8.5-10.1); CREATININE 1.6 mg/dL (0.6-1.0); GFR 31.5; PHOSPHORUS 2.6 mg/dL (2.6-4.7); POTASSIUM 4.5 mmol/L (3.5-5.1)
[2018-08-31 07:00] VITALS: BP 166/81
[2018-08-31] MEDS: IPRATRPIUM/ALBUTEROL 0.5/2.5MG 3 ML NEBU. NEB SCH ×4 (07:49→20:01)
[2018-08-31] MEDS: NON FORMULARY ITEM (Icosapent Ethyl (Vascepa) 1 GM) PO SCH (09:00)
[2018-08-31] MEDS: IRON POLYSACCHARIDE COMPLEX 150 MG CAPSULE PO SCH ×2 (09:06→21:05)
[2018-08-31] MEDS: POTASSIUM CHLORIDE 20 MEQ TABLET.ER. PO SCH (09:07)
[2018-08-31] MEDS: ASPIRIN CHEWABLE 81 MG TABLET. PO SCH ×2 (09:07→21:05)
[2018-08-31] MEDS: NORTRIPTYLINE 25 MG CAPSULE PO SCH (09:07)
[2018-08-31] MEDS: PANTOPRAZOLE 40 MG TABLET.DR. PO SCH (09:07)
[2018-08-31] MEDS: predniSONE 10 MG TABLET PO SCH (09:07)
[2018-08-31] MEDS: DULoxetine HCL 30 MG CAPSULE.DR PO SCH (09:07)
[2018-08-31] MEDS: LABETALOL HCL 100 MG TABLET. PO SCH ×2 (09:07→21:05)
[2018-08-31] MEDS: amLODIPine BESYLATE 5 MG TABLET PO SCH (09:08)
[2018-08-31] MEDS: FOLIC ACID 1 MG TABLET. PO SCH ×2 (09:08→21:05)
[2018-08-31] MEDS: INSULIN LISPRO 300 UNITS/3 ML INSULN.PEN. SQ SCH ×3 (09:15→17:23)
[2018-08-31 11:00] VITALS: BP 146/50
--- NOTE | 2018-08-31 12:34 | PDOC2 ---
CONSULT Date of Consult Date of Consult DATE: 08/31/18 TIME: 12:27 Reason for Consult Reason for Consult: RENAL FAILURE Referring Physician Referring Physician: AMINTA Identification/Chief Complaint Chief Complaint FALL Source Source: Chart review History of Present Illness Reason for Visit: THIS IS A 73 YR OLD WITH A FALL. HAD LOW BG AND LE WEAKNESS. HAS HX OF SPINAL STENOSIS. CR OF 1.6 AND THIS C/W HER STAGE 3 CKD FROM LAST COUPLE YEARS. SHE DOES HAVE DM II AND HTN. SHE IS ALSO NOTED TO HAVE AN UTI. CK LEVEL PEAK HAS BEEN 1307. NO NEPHROTOXINS NOTED Past Medical History Cardiovascular: HTN, Hyperlipidemia Pulmonary: Other (sleep apnea) CENTRAL NERVOUS SYSTEM: Periperal neuropathy GI: Hemorrhoids Heme/Onc: Cancer (:) Hepatobiliary: No pertinent hx Psych: Anxiety, Depression Musculoskeletal: low back pain Rheumatologic: No pertinent hx Renal/: Chronic renal insuff Endocrine: Diabetes Past Surgical History Past Surgical History: Appendectomy, Cataract Removal, Tonsillectomy, Hysterectomy, Colon Resection, Other (lumbar laminectomy, right foot, right rotator cuff; R ankle; left foot, breast, carpal tunnel) Family History Family History: Diabetes, High Cholestrol, Stroke Social History No ALCOHOL: none Drugs: None Lives: Alone Current Medications Current Medications Current Medications Albuterol/ Ipratropium (Duoneb) 3 ml 1X ONCE NEB Last administered on 08/29/18at 19:42; Start 08/29/18 at 19:15; Stop 08/29/18 at 19:16; Status DC Sodium Chloride 1,000 ml @ 1,000 mls/hr 1X ONCE IV Last administered on 08/29/18at 19:44; Start 08/29/18 at 19:15; Stop 08/29/18 at 20:14; Status DC Sodium Chloride 1,000 ml @ 1,000 mls/hr 1X ONCE IV Last administered on 08/29/18at 21:44; Start 08/29/18 at 20:15; Stop 08/29/18 at 21:14; Status DC Levofloxacin/ Dextrose (Levaquin Per Pharmacy) 1 each PRN DAILY PRN MC SEE COMMENTS; Start 08/29/18 at 20:30 Sodium Chloride 1,000 ml @ 75 mls/hr [id number] IV Last administered on 08/29/18at 22:52; Start 08/29/18 at 20:29; Stop 08/30/18 at 20:28; Status DC Albuterol/ Ipratropium (Duoneb) 3 ml RTQID NEB ; Start 08/30/18 at 21:00; Stop 08/30/18 at 21:00; Status DC Levofloxacin/ Dextrose 50 ml @ 100 mls/hr Q24H IV Last administered on 08/30/18at 20:56; Start 08/29/18 at 21:00 Albuterol/ Ipratropium (Duoneb) 3 ml RTQID NEB Last administered on 08/31/18at 11:56; Start 08/30/18 at 08:15 Levofloxacin/ Dextrose 50 ml @ 50 mls/hr Q24H IV ; Start 08/30/18 at 08:30; Status UNV Potassium Chloride (Klor-Con) 40 meq 1X ONCE PO Last administered on 08/30/18 10:59; Start 08/30/18 at 10:15; Stop 08/30/18 at 10:16; Status DC Potassium Chloride (Klor-Con) 20 meq [id number] PO Last administered on 08/31/18 09:07; Start 08/31/18 at 08:00 Amlodipine Besylate (Norvasc) 5 mg DAILY PO Last administered on 08/31/18 09:08; Start 08/30/18 at 11:00 Aspirin (Children'S Aspirin) 81 mg BID PO Last administered on 08/31/18 09:07; Start 08/30/18 at 11:00 Folic Acid (Folic Acid) 1 mg BID PO Last administered on 08/31/18 09:08; Start 08/30/18 at 11:00 Acetaminophen/ Hydrocodone Bitart (Lortab 5/325) 1 tab PRN Q6HRS PRN PO MODERATE PAIN; Start 08/30/18 at 10:30 Nortriptyline HCl (Pamelor) 25 mg DAILY PO Last administered on 08/31/18 09:07; Start 08/30/18 at 11:00 Non-Formulary Medication (Albuterol Sulfate (Proair Respiclick)) 1 puff Q4HRS INH ; Start 08/30/18 at 12:00; Status UNV Duloxetine HCl (Cymbalta) 60 mg DAILY PO Last administered on 08/31/18 09:07; Start 08/30/18 at 11:00 Non-Formulary Medication (Icosapent Ethyl (Vascepa)) 1 gm BID PO ; Start 08/30/18 at 21:00; Status UNV Insulin Glargine (Lantus) 40 units QHS SQ Last administered on 08/30/18at 21:00; Start 08/30/18 at 21:00 Labetalol HCl (Trandate) 100 mg BID PO Last administered on 08/31/18 09:07; Start 08/30/18 at 11:00 Prednisone (Prednisone) 10 mg DAILY PO Last administered on 08/31/18 09:07; Start 08/30/18 at 10:45 Pantoprazole Sodium (Protonix) 40 mg DAILYAC PO Last administered on 08/31/18 09:07; Start 08/30/18 at 11:30 Albuterol Sulfate (Ventolin Neb Soln) 2.5 mg Q4HRS@0000,0400 NEB ; Start 08/31/18 at 00:00 Polysaccharide Iron Complex (Niferex 150) 150 mg BID PO Last administered on 08/31/18at 09:06; Start 08/30/18 at 11:00 Insulin Human Lispro (HumaLOG) 0-5 UNITS TIDWMEALS SQ Last administered on 08/31/18at 09:15; Start 08/30/18 at 12:00 Dextrose (Dextrose 50%-Water Syringe) 12.5 gm PRN Q15MIN PRN IV SEE COMMENTS; Start 08/30/18 at 11:45 Sodium Chloride 1,000 ml @ 75 mls/hr [id number] IV ; Start 08/31/18 at 13:00 Active Scripts Active [place] 5-325 Tablet (Acetaminophen/Hydrocodone Bitart) 1 Each Tablet 1 Tab PO PRN Q6HRS PRN Reported Vascepa (Icosapent Ethyl) 1 Gm Capsule 1 Gm PO BID Proair Respiclick (Albuterol Sulfate) 90 Mcg Aer.pow.ba 1 Puff INH Q4HRS Nortriptyline Hcl 25 Mg Capsule 25 Mg PO DAILY Levemir (Insulin Detemir) 100 Unit/1 Ml Vial 40 Unit SQ HS Folic Acid 1 Mg Tablet 1 Tab PO BID Metformin Hcl 500 Mg Tablet 1 Tab PO BID Novolog Flexpen (Insulin Aspart) 100 Unit/1 Ml Insuln.pen 15 Unit SQ TIDAC Cyclobenzaprine Hcl 10 Mg Tablet 1 Tab PO BID Atorvastatin Calcium 40 Mg Tablet 1 Tab PO QHS Amlodipine Besylate 10 Mg Tablet 0.5 Tab PO HS Losartan-Hctz 100-25 Mg Tab (Losartan/Hydrochlorothiazide) 1 Each Tablet 1 Tab PO DAILY Duloxetine Hcl 60 Mg Capsule.dr 60 Mg PO DAILY Aspirin 81 Mg Tab.chew 1 Tab PO BID Labetalol Hcl 100 Mg Tablet 1 Tab PO BID Allergies Allergies: Coded Allergies: NSAIDS (Non-Steroidal Anti-Inflamma (Verified Allergy, Intermediate, 09/13/16) Tried several. Allergic to all aspirin (Verified Allergy, Intermediate, 10/17/14) upsets stomach diphenhydramine (Verified Allergy, Intermediate, hives, 09/13/16) morphine (Verified Allergy, Intermediate, 10/15/14) Penicillins (Verified Allergy, Unknown, 09/13/16) don't work ROS Review of System SOME CONFUSION, FULL ROS ATTEMPTED Physical Exam General: Alert, Cooperative, No acute distress HEENT: Atraumatic, PERRLA, EOMI Lungs: Clear to auscultation Heart: Regular rate, Normal S1, Normal S2 Abdomen: Normal bowel sounds, Soft Skin: No rashes, No breakdown Neuro: Other (SOME SOMNOLENCE) Psych/Mental Status: Other (SOME CONFUSION) MUSCULOSKELETAL: No joint tenderness, No deformity, No swelling Vitals VITALS Vital Signs Date Time Temp Pulse Resp B/P (MAP) Pulse Ox O2 Delivery O2 Flow Rate FiO2 08/31/18 12:00 Room Air 08/31/18 11:00 98.5 72 18 146/50 (82) 94 98.5 08/30/18 21:13 2.0 Labs Labs Laboratory Tests Test 08/29/18 18:30 08/29/18 19:24 08/29/18 19:51 08/29/18 21:49 Glucose (Fingerstick) 250 mg/dL (70-99) 161 mg/dL (70-99) White Blood Count 8.4 x10^3/uL (4.0-11.0) Red Blood Count 3.53 x10^6/uL (3.50-5.40) Hemoglobin 11.6 g/dL (12.0-15.5) Hematocrit 33.9 % (36.0-47.0) Mean Corpuscular Volume 96 fL (79-100) Mean Corpuscular Hemoglobin 33 pg (25-35) Mean Corpuscular Hemoglobin Concent 34 g/dL (31-37) Red Cell Distribution Width 15.1 % (11.5-14.5) Platelet Count 272 x10^3/uL (140-400) Neutrophils (%) (Auto) 72 % (31-73) Lymphocytes (%) (Auto) 15 % (24-48) Monocytes (%) (Auto) 11 % (0-9) Eosinophils (%) (Auto) 2 % (0-3) Basophils (%) (Auto) 1 % (0-3) Neutrophils # (Auto) 6.0 x10^3uL (1.8-7.7) Lymphocytes # (Auto) 1.3 x10^3/uL (1.0-4.8) Monocytes # (Auto) 0.9 x10^3/uL (0.0-1.1) Eosinophils # (Auto) 0.1 x10^3/uL (0.0-0.7) Basophils # (Auto) 0.0 x10^3/uL (0.0-0.2) Prothrombin Time 13.9 SEC (11.7-14.0) Prothromb Time International Ratio 1.1 (0.8-1.1) Sodium Level 134 mmol/L (136-145) Potassium Level 4.2 mmol/L (3.5-5.1) Chloride Level 96 mmol/L (98-107) Carbon Dioxide Level 26 mmol/L (21-32) Anion Gap 12 (6-14) Blood Urea Nitrogen 40 mg/dL (7-20) Creatinine 1.5 mg/dL (0.6-1.0) Estimated GFR (Cockcroft-Gault) 33.9 BUN/Creatinine Ratio 27 (6-20) Glucose Level 236 mg/dL (70-99) Calcium Level 9.9 mg/dL (8.5-10.1) Total Bilirubin 0.7 mg/dL (0.2-1.0) Aspartate Amino Transf (AST/SGOT) 48 U/L (15-37) Alanine Aminotransferase (ALT/SGPT) 35 U/L (14-59) Alkaline Phosphatase 57 U/L (46-116) Creatine Kinase 1307 U/L (26-192) Troponin I Quantitative < 0.017 ng/mL (0.000-0.055) Total Protein 7.0 g/dL (6.4-8.2) Albumin 2.9 g/dL (3.4-5.0) Albumin/Globulin Ratio 0.7 (1.0-1.7) Urine Collection Type U cath Urine Color Yellow Urine Clarity Clear Urine pH 6.0 Urine Specific [place] 1.010 Urine Protein Negative mg/dL (NEG-TRACE) Urine Glucose (UA) Negative mg/dL (NEG) Urine Ketones (Stick) Negative mg/dL (NEG) Urine Blood Negative (NEG) Urine Nitrite Negative (NEG) Urine Bilirubin Negative (NEG) Urine Urobilinogen Dipstick 0.2 mg/dL (0.2 mg/dL) Urine Leukocyte Esterase Large (NEG) Urine RBC Occ /HPF (0-2) Urine WBC Tntc /HPF (0-4) Urine Squamous Epithelial Cells Few /LPF Urine Bacteria Few /HPF (0-FEW) Test 08/29/18 23:59 08/30/18 03:50 08/30/18 04:00 08/30/18 07:17 Glucose (Fingerstick) 168 mg/dL (70-99) 159 mg/dL (70-99) Sodium Level 134 mmol/L (136-145) Potassium Level 3.4 mmol/L (3.5-5.1) Chloride Level 99 mmol/L (98-107) Carbon Dioxide Level 25 mmol/L (21-32) Anion Gap 10 (6-14) Blood Urea Nitrogen 34 mg/dL (7-20) Creatinine 1.2 mg/dL (0.6-1.0) Estimated GFR (Cockcroft-Gault) 43.9 Glucose Level 207 mg/dL (70-99) Uric Acid 8.5 mg/dL (2.6-6.0) Calcium Level 8.9 mg/dL (8.5-10.1) Creatine Kinase 1090 U/L (26-192) Test 08/30/18 11:23 08/30/18 12:22 08/30/18 16:45 08/30/18 20:29 Glucose (Fingerstick) 242 mg/dL (70-99) 328 mg/dL (70-99) 315 mg/dL (70-99) Erythrocyte Sedimentation Rate 109 (0-25) Test 08/31/18 04:10 08/31/18 09:10 08/31/18 11:55 White Blood Count 6.1 x10^3/uL (4.0-11.0) Red Blood Count 3.34 x10^6/uL (3.50-5.40) Hemoglobin 10.7 g/dL (12.0-15.5) Hematocrit 32.3 % (36.0-47.0) Mean Corpuscular Volume 97 fL (79-100) Mean Corpuscular Hemoglobin 32 pg (25-35) Mean Corpuscular Hemoglobin Concent 33 g/dL (31-37) Red Cell Distribution Width 15.0 % (11.5-14.5) Platelet Count 254 x10^3/uL (140-400) Neutrophils (%) (Auto) 59 % (31-73) Lymphocytes (%) (Auto) 30 % (24-48) Monocytes (%) (Auto) 9 % (0-9) Eosinophils (%) (Auto) 2 % (0-3) Basophils (%) (Auto) 1 % (0-3) Neutrophils # (Auto) 3.6 x10^3uL (1.8-7.7) Lymphocytes # (Auto) 1.8 x10^3/uL (1.0-4.8) Monocytes # (Auto) 0.5 x10^3/uL (0.0-1.1) Eosinophils # (Auto) 0.1 x10^3/uL (0.0-0.7) Basophils # (Auto) 0.0 x10^3/uL (0.0-0.2) Sodium Level 140 mmol/L (136-145) Potassium Level 4.5 mmol/L (3.5-5.1) Chloride Level 104 mmol/L (98-107) Carbon Dioxide Level 29 mmol/L (21-32) Anion Gap 7 (6-14) Blood Urea Nitrogen 28 mg/dL (7-20) Creatinine 1.6 mg/dL (0.6-1.0) Estimated GFR (Cockcroft-Gault) 31.5 Glucose Level 164 mg/dL (70-99) Calcium Level 9.4 mg/dL (8.5-10.1) Phosphorus Level 2.6 mg/dL (2.6-4.7) Albumin 2.7 g/dL (3.4-5.0) Glucose (Fingerstick) 220 mg/dL (70-99) 154 mg/dL (70-99) Laboratory Tests Test 08/30/18 16:45 08/30/18 20:29 08/31/18 04:10 08/31/18 09:10 Glucose (Fingerstick) 328 mg/dL (70-99) 315 mg/dL (70-99) 220 mg/dL (70-99) White Blood Count 6.1 x10^3/uL (4.0-11.0) Red Blood Count 3.34 x10^6/uL (3.50-5.40) Hemoglobin 10.7 g/dL (12.0-15.5) Hematocrit 32.3 % (36.0-47.0) Mean Corpuscular Volume 97 fL (79-100) Mean Corpuscular Hemoglobin 32 pg (25-35) Mean Corpuscular Hemoglobin Concent 33 g/dL (31-37) Red Cell Distribution Width 15.0 % (11.5-14.5) Platelet Count 254 x10^3/uL (140-400) Neutrophils (%) (Auto) 59 % (31-73) Lymphocytes (%) (Auto) 30 % (24-48) Monocytes (%) (Auto) 9 % (0-9) Eosinophils (%) (Auto) 2 % (0-3) Basophils (%) (Auto) 1 % (0-3) Neutrophils # (Auto) 3.6 x10^3uL (1.8-7.7) Lymphocytes # (Auto) 1.8 x10^3/uL (1.0-4.8) Monocytes # (Auto) 0.5 x10^3/uL (0.0-1.1) Eosinophils # (Auto) 0.1 x10^3/uL (0.0-0.7) Basophils # (Auto) 0.0 x10^3/uL (0.0-0.2) Sodium Level 140 mmol/L (136-145) Potassium Level 4.5 mmol/L (3.5-5.1) Chloride Level 104 mmol/L (98-107) Carbon Dioxide Level 29 mmol/L (21-32) Anion Gap 7 (6-14) Blood Urea Nitrogen 28 mg/dL (7-20) Creatinine 1.6 mg/dL (0.6-1.0) Estimated GFR (Cockcroft-Gault) 31.5 Glucose Level 164 mg/dL (70-99) Calcium Level 9.4 mg/dL (8.5-10.1) Phosphorus Level 2.6 mg/dL (2.6-4.7) Albumin 2.7 g/dL (3.4-5.0) Test 08/31/18 11:55 Glucose (Fingerstick) 154 mg/dL (70-99) Assessment/Plan Assessment/Plan IMP CKD STAGE 3 WITH CR OF 1.6 URINARY TRACT INFECTION DECONDITIONING SPINAL STENOSIS SYNCOPE INCREASED CPK DM II WITH HYPOGLYCEMIA HYPOKALEMIA ENCEPHALOPATHY PLAN ANTIBIOTICS HYDRATION THERAPY LABS IN AM F/U CK EVA MCKAY MD August 31, 2018 12:34
[2018-08-31] MEDS: IV NORMAL SALINE 1000ML BAG 1,000 ML IV SCH (13:59)
--- NOTE | 2018-08-31 14:18 | PDOC ---
PROGRESS NOTES Chief Complaint Chief Complaint 1.syncope and lower extremity weakness 2. Acute renal failure 3. rhabodomyolysis, cont IV fluid 4. Diabetes mellitus type 2. 5. Hypertension, hypertensive cardiovascular disease. diastolic CHF 6. Hyperlipidemia. 7. UTI 8. back pain with spinal stenosis and spondylolisthesis and DJD 9. hypokalemia History of Present Illness History of Present Illness looks improved renal fxn worse, cont the IV fluid, OOB as able Dr. Akhtar following and she reports feeling better Vitals Vitals Vital Signs Date Time Temp Pulse Resp B/P (MAP) Pulse Ox O2 Delivery O2 Flow Rate FiO2 08/31/18 12:00 Room Air 08/31/18 11:00 98.5 72 18 146/50 (82) 94 98.5 08/30/18 21:13 2.0 Physical Exam General: Alert, Cooperative, No acute distress Heart: Regular rate, Normal S1, Normal S2 Lungs: Clear Abdomen: Normal bowel sounds, Soft Extremities: No edema, Other Skin: No rashes, No breakdown Labs LABS Laboratory Tests Test 08/30/18 16:45 08/30/18 20:29 08/31/18 04:10 08/31/18 09:10 Glucose (Fingerstick) 328 mg/dL (70-99) 315 mg/dL (70-99) 220 mg/dL (70-99) White Blood Count 6.1 x10^3/uL (4.0-11.0) Red Blood Count 3.34 x10^6/uL (3.50-5.40) Hemoglobin 10.7 g/dL (12.0-15.5) Hematocrit 32.3 % (36.0-47.0) Mean Corpuscular Volume 97 fL (79-100) Mean Corpuscular Hemoglobin 32 pg (25-35) Mean Corpuscular Hemoglobin Concent 33 g/dL (31-37) Red Cell Distribution Width 15.0 % (11.5-14.5) Platelet Count 254 x10^3/uL (140-400) Neutrophils (%) (Auto) 59 % (31-73) Lymphocytes (%) (Auto) 30 % (24-48) Monocytes (%) (Auto) 9 % (0-9) Eosinophils (%) (Auto) 2 % (0-3) Basophils (%) (Auto) 1 % (0-3) Neutrophils # (Auto) 3.6 x10^3uL (1.8-7.7) Lymphocytes # (Auto) 1.8 x10^3/uL (1.0-4.8) Monocytes # (Auto) 0.5 x10^3/uL (0.0-1.1) Eosinophils # (Auto) 0.1 x10^3/uL (0.0-0.7) Basophils # (Auto) 0.0 x10^3/uL (0.0-0.2) Sodium Level 140 mmol/L (136-145) Potassium Level 4.5 mmol/L (3.5-5.1) Chloride Level 104 mmol/L (98-107) Carbon Dioxide Level 29 mmol/L (21-32) Anion Gap 7 (6-14) Blood Urea Nitrogen 28 mg/dL (7-20) Creatinine 1.6 mg/dL (0.6-1.0) Estimated GFR (Cockcroft-Gault) 31.5 Glucose Level 164 mg/dL (70-99) Calcium Level 9.4 mg/dL (8.5-10.1) Phosphorus Level 2.6 mg/dL (2.6-4.7) Albumin 2.7 g/dL (3.4-5.0) Test 08/31/18 11:55 Glucose (Fingerstick) 154 mg/dL (70-99) Review of Systems Review of Systems back pain, leg weakness, stronger today Comment Review of Relevant I have reviewed the following items gretel (where applicable) has been applied. Labs Laboratory Tests Test 08/29/18 18:30 08/29/18 19:24 08/29/18 19:51 08/29/18 21:49 Glucose (Fingerstick) 250 mg/dL (70-99) 161 mg/dL (70-99) White Blood Count 8.4 x10^3/uL (4.0-11.0) Red Blood Count 3.53 x10^6/uL (3.50-5.40) Hemoglobin 11.6 g/dL (12.0-15.5) Hematocrit 33.9 % (36.0-47.0) Mean Corpuscular Volume 96 fL (79-100) Mean Corpuscular Hemoglobin 33 pg (25-35) Mean Corpuscular Hemoglobin Concent 34 g/dL (31-37) Red Cell Distribution Width 15.1 % (11.5-14.5) Platelet Count 272 x10^3/uL (140-400) Neutrophils (%) (Auto) 72 % (31-73) Lymphocytes (%) (Auto) 15 % (24-48) Monocytes (%) (Auto) 11 % (0-9) Eosinophils (%) (Auto) 2 % (0-3) Basophils (%) (Auto) 1 % (0-3) Neutrophils # (Auto) 6.0 x10^3uL (1.8-7.7) Lymphocytes # (Auto) 1.3 x10^3/uL (1.0-4.8) Monocytes # (Auto) 0.9 x10^3/uL (0.0-1.1) Eosinophils # (Auto) 0.1 x10^3/uL (0.0-0.7) Basophils # (Auto) 0.0 x10^3/uL (0.0-0.2) Prothrombin Time 13.9 SEC (11.7-14.0) Prothromb Time International Ratio 1.1 (0.8-1.1) Sodium Level 134 mmol/L (136-145) Potassium Level 4.2 mmol/L (3.5-5.1) Chloride Level 96 mmol/L (98-107) Carbon Dioxide Level 26 mmol/L (21-32) Anion Gap 12 (6-14) Blood Urea Nitrogen 40 mg/dL (7-20) Creatinine 1.5 mg/dL (0.6-1.0) Estimated GFR (Cockcroft-Gault) 33.9 BUN/Creatinine Ratio 27 (6-20) Glucose Level 236 mg/dL (70-99) Calcium Level 9.9 mg/dL (8.5-10.1) Total Bilirubin 0.7 mg/dL (0.2-1.0) Aspartate Amino Transf (AST/SGOT) 48 U/L (15-37) Alanine Aminotransferase (ALT/SGPT) 35 U/L (14-59) Alkaline Phosphatase 57 U/L (46-116) Creatine Kinase 1307 U/L (26-192) Troponin I Quantitative < 0.017 ng/mL (0.000-0.055) Total Protein 7.0 g/dL (6.4-8.2) Albumin 2.9 g/dL (3.4-5.0) Albumin/Globulin Ratio 0.7 (1.0-1.7) Urine Collection Type U cath Urine Color Yellow Urine Clarity Clear Urine pH 6.0 Urine Specific [place] 1.010 Urine Protein Negative mg/dL (NEG-TRACE) Urine Glucose (UA) Negative mg/dL (NEG) Urine Ketones (Stick) Negative mg/dL (NEG) Urine Blood Negative (NEG) Urine Nitrite Negative (NEG) Urine Bilirubin Negative (NEG) Urine Urobilinogen Dipstick 0.2 mg/dL (0.2 mg/dL) Urine Leukocyte Esterase Large (NEG) Urine RBC Occ /HPF (0-2) Urine WBC Tntc /HPF (0-4) Urine Squamous Epithelial Cells Few /LPF Urine Bacteria Few /HPF (0-FEW) Test 08/29/18 23:59 08/30/18 03:50 08/30/18 04:00 08/30/18 07:17 Glucose (Fingerstick) 168 mg/dL (70-99) 159 mg/dL (70-99) Sodium Level 134 mmol/L (136-145) Potassium Level 3.4 mmol/L (3.5-5.1) Chloride Level 99 mmol/L (98-107) Carbon Dioxide Level 25 mmol/L (21-32) Anion Gap 10 (6-14) Blood Urea Nitrogen 34 mg/dL (7-20) Creatinine 1.2 mg/dL (0.6-1.0) Estimated GFR (Cockcroft-Gault) 43.9 Glucose Level 207 mg/dL (70-99) Uric Acid 8.5 mg/dL (2.6-6.0) Calcium Level 8.9 mg/dL (8.5-10.1) Creatine Kinase 1090 U/L (26-192) Test 08/30/18 11:23 08/30/18 12:22 08/30/18 16:45 08/30/18 20:29 Glucose (Fingerstick) 242 mg/dL (70-99) 328 mg/dL (70-99) 315 mg/dL (70-99) Erythrocyte Sedimentation Rate 109 (0-25) Test 08/31/18 04:10 08/31/18 09:10 08/31/18 11:55 White Blood Count 6.1 x10^3/uL (4.0-11.0) Red Blood Count 3.34 x10^6/uL (3.50-5.40) Hemoglobin 10.7 g/dL (12.0-15.5) Hematocrit 32.3 % (36.0-47.0) Mean Corpuscular Volume 97 fL (79-100) Mean Corpuscular Hemoglobin 32 pg (25-35) Mean Corpuscular Hemoglobin Concent 33 g/dL (31-37) Red Cell Distribution Width 15.0 % (11.5-14.5) Platelet Count 254 x10^3/uL (140-400) Neutrophils (%) (Auto) 59 % (31-73) Lymphocytes (%) (Auto) 30 % (24-48) Monocytes (%) (Auto) 9 % (0-9) Eosinophils (%) (Auto) 2 % (0-3) Basophils (%) (Auto) 1 % (0-3) Neutrophils # (Auto) 3.6 x10^3uL (1.8-7.7) Lymphocytes # (Auto) 1.8 x10^3/uL (1.0-4.8) Monocytes # (Auto) 0.5 x10^3/uL (0.0-1.1) Eosinophils # (Auto) 0.1 x10^3/uL (0.0-0.7) Basophils # (Auto) 0.0 x10^3/uL (0.0-0.2) Sodium Level 140 mmol/L (136-145) Potassium Level 4.5 mmol/L (3.5-5.1) Chloride Level 104 mmol/L (98-107) Carbon Dioxide Level 29 mmol/L (21-32) Anion Gap 7 (6-14) Blood Urea Nitrogen 28 mg/dL (7-20) Creatinine 1.6 mg/dL (0.6-1.0) Estimated GFR (Cockcroft-Gault) 31.5 Glucose Level 164 mg/dL (70-99) Calcium Level 9.4 mg/dL (8.5-10.1) Phosphorus Level 2.6 mg/dL (2.6-4.7) Albumin 2.7 g/dL (3.4-5.0) Glucose (Fingerstick) 220 mg/dL (70-99) 154 mg/dL (70-99) Laboratory Tests Test 08/30/18 16:45 08/30/18 20:29 08/31/18 04:10 08/31/18 09:10 Glucose (Fingerstick) 328 mg/dL (70-99) 315 mg/dL (70-99) 220 mg/dL (70-99) White Blood Count 6.1 x10^3/uL (4.0-11.0) Red Blood Count 3.34 x10^6/uL (3.50-5.40) Hemoglobin 10.7 g/dL (12.0-15.5) Hematocrit 32.3 % (36.0-47.0) Mean Corpuscular Volume 97 fL (79-100) Mean Corpuscular Hemoglobin 32 pg (25-35) Mean Corpuscular Hemoglobin Concent 33 g/dL (31-37) Red Cell Distribution Width 15.0 % (11.5-14.5) Platelet Count 254 x10^3/uL (140-400) Neutrophils (%) (Auto) 59 % (31-73) Lymphocytes (%) (Auto) 30 % (24-48) Monocytes (%) (Auto) 9 % (0-9) Eosinophils (%) (Auto) 2 % (0-3) Basophils (%) (Auto) 1 % (0-3) Neutrophils # (Auto) 3.6 x10^3uL (1.8-7.7) Lymphocytes # (Auto) 1.8 x10^3/uL (1.0-4.8) Monocytes # (Auto) 0.5 x10^3/uL (0.0-1.1) Eosinophils # (Auto) 0.1 x10^3/uL (0.0-0.7) Basophils # (Auto) 0.0 x10^3/uL (0.0-0.2) Sodium Level 140 mmol/L (136-145) Potassium Level 4.5 mmol/L (3.5-5.1) Chloride Level 104 mmol/L (98-107) Carbon Dioxide Level 29 mmol/L (21-32) Anion Gap 7 (6-14) Blood Urea Nitrogen 28 mg/dL (7-20) Creatinine 1.6 mg/dL (0.6-1.0) Estimated GFR (Cockcroft-Gault) 31.5 Glucose Level 164 mg/dL (70-99) Calcium Level 9.4 mg/dL (8.5-10.1) Phosphorus Level 2.6 mg/dL (2.6-4.7) Albumin 2.7 g/dL (3.4-5.0) Test 08/31/18 11:55 Glucose (Fingerstick) 154 mg/dL (70-99) Medications Current Medications Albuterol/ Ipratropium (Duoneb) 3 ml 1X ONCE NEB Last administered on 08/29/18 19:42; Start 08/29/18 at 19:15; Stop 08/29/18 at 19:16; Status DC Sodium Chloride 1,000 ml @ 1,000 mls/hr 1X ONCE IV Last administered on 08/29/18at 19:44; Start 08/29/18 at 19:15; Stop 08/29/18 at 20:14; Status DC Sodium Chloride 1,000 ml @ 1,000 mls/hr 1X ONCE IV Last administered on 08/29/18at 21:44; Start 08/29/18 at 20:15; Stop 08/29/18 at 21:14; Status DC Levofloxacin/ Dextrose (Levaquin Per Pharmacy) 1 each PRN DAILY PRN MC SEE COMMENTS; Start 08/29/18 at 20:30 Sodium Chloride 1,000 ml @ 75 mls/hr [id number] IV Last administered on 08/29/18at 22:52; Start 08/29/18 at 20:29; Stop 08/30/18 at 20:28; Status DC Albuterol/ Ipratropium (Duoneb) 3 ml RTQID NEB ; Start 08/30/18 at 21:00; Stop 08/30/18 at 21:00; Status DC Levofloxacin/ Dextrose 50 ml @ 100 mls/hr Q24H IV Last administered on 08/30/18at 20:56; Start 08/29/18 at 21:00 Albuterol/ Ipratropium (Duoneb) 3 ml RTQID NEB Last administered on 08/31/18at 11:56; Start 08/30/18 at 08:15 Levofloxacin/ Dextrose 50 ml @ 50 mls/hr Q24H IV ; Start 08/30/18 at 08:30; Status UNV Potassium Chloride (Klor-Con) 40 meq 1X ONCE PO Last administered on 08/30/18 10:59; Start 08/30/18 at 10:15; Stop 08/30/18 at 10:16; Status DC Potassium Chloride (Klor-Con) 20 meq [id number] PO Last administered on 08/31/18 09:07; Start 08/31/18 at 08:00 Amlodipine Besylate (Norvasc) 5 mg DAILY PO Last administered on 08/31/18 09:08; Start 08/30/18 at 11:00 Aspirin (Children'S Aspirin) 81 mg BID PO Last administered on 08/31/18 09:07; Start 08/30/18 at 11:00 Folic Acid (Folic Acid) 1 mg BID PO Last administered on 08/31/18 09:08; Start 08/30/18 at 11:00 Acetaminophen/ Hydrocodone Bitart (Lortab 5/325) 1 tab PRN Q6HRS PRN PO MODERATE PAIN; Start 08/30/18 at 10:30 Nortriptyline HCl (Pamelor) 25 mg DAILY PO Last administered on 08/31/18 09:07; Start 08/30/18 at 11:00 Non-Formulary Medication (Albuterol Sulfate (Proair Respiclick)) 1 puff Q4HRS INH ; Start 08/30/18 at 12:00; Status UNV Duloxetine HCl (Cymbalta) 60 mg DAILY PO Last administered on 08/31/18 09:07; Start 08/30/18 at 11:00 Non-Formulary Medication (Icosapent Ethyl (Vascepa)) 1 gm BID PO ; Start 08/30/18 at 21:00; Status UNV Insulin Glargine (Lantus) 40 units QHS SQ Last administered on 08/30/18 21:00; Start 08/30/18 at 21:00 Labetalol HCl (Trandate) 100 mg BID PO Last administered on 08/31/18 09:07; Start 08/30/18 at 11:00 Prednisone (Prednisone) 10 mg DAILY PO Last administered on 08/31/18 09:07; Start 08/30/18 at 10:45 Pantoprazole Sodium (Protonix) 40 mg DAILYAC PO Last administered on 08/31/18at 09:07; Start 08/30/18 at 11:30 Albuterol Sulfate (Ventolin Neb Soln) 2.5 mg Q4HRS@0000,0400 NEB ; Start 08/31/18 at 00:00 Polysaccharide Iron Complex (Niferex 150) 150 mg BID PO Last administered on 08/31/18at 09:06; Start 08/30/18 at 11:00 Insulin Human Lispro (HumaLOG) 0-5 UNITS TIDWMEALS SQ Last administered on 08/31/18at 12:39; Start 08/30/18 at 12:00 Dextrose (Dextrose 50%-Water Syringe) 12.5 gm PRN Q15MIN PRN IV SEE COMMENTS; Start 08/30/18 at 11:45 Sodium Chloride 1,000 ml @ 75 mls/hr [id number] IV Last administered on 08/31/18at 13:59; Start 08/31/18 at 13:00 Lactobacillus Rhamnosus (Culturelle) 1 cap BID PO ; Start 08/31/18 at 21:00 Active Scripts Active [place] 5-325 Tablet (Acetaminophen/Hydrocodone Bitart) 1 Each Tablet 1 Tab PO PRN Q6HRS PRN Reported Vascepa (Icosapent Ethyl) 1 Gm Capsule 1 Gm PO BID Proair Respiclick (Albuterol Sulfate) 90 Mcg Aer.pow.ba 1 Puff INH Q4HRS Nortriptyline Hcl 25 Mg Capsule 25 Mg PO DAILY Levemir (Insulin Detemir) 100 Unit/1 Ml Vial 40 Unit SQ HS Folic Acid 1 Mg Tablet 1 Tab PO BID Metformin Hcl 500 Mg Tablet 1 Tab PO BID Novolog Flexpen (Insulin Aspart) 100 Unit/1 Ml Insuln.pen 15 Unit SQ TIDAC Cyclobenzaprine Hcl 10 Mg Tablet 1 Tab PO BID Atorvastatin Calcium 40 Mg Tablet 1 Tab PO QHS Amlodipine Besylate 10 Mg Tablet 0.5 Tab PO HS Losartan-Hctz 100-25 Mg Tab (Losartan/Hydrochlorothiazide) 1 Each Tablet 1 Tab PO DAILY Duloxetine Hcl 60 Mg Capsule.dr 60 Mg PO DAILY Aspirin 81 Mg Tab.chew 1 Tab PO BID Labetalol Hcl 100 Mg Tablet 1 Tab PO BID Vitals/I & O Vital Sign - Last 24 Hours 5/4/08/30/18 08/30/18 08/30/18 16:21 19:25 20:00 20:56 Temp 99.1 99.1 Pulse 93 93 Resp 18 B/P (MAP) 144/63 (90) 144/63 Pulse Ox 100 92 O2 Delivery Room Air Room Air Room Air 08/30/18 08/30/18 08/30/18 08/31/18 21:13 21:17 23:25 03:25 Temp 98.9 98.2 98.9 98.2 Pulse 80 80 Resp 18 18 B/P (MAP) 133/67 (89) 180/63 (102) Pulse Ox 92 92 92 93 O2 Delivery Room Air Room Air Room Air Room Air O2 Flow Rate 2.0 08/31/18 08/31/18 08/31/18 08/31/18 07:00 07:50 09:07 09:08 Temp 98.1 98.1 Pulse 83 83 83 Resp 18 B/P (MAP) 166/81 (109) 166/81 166/81 Pulse Ox 94 94 O2 Delivery Room Air Room Air 08/31/18 08/31/18 11:00 12:00 Temp 98.5 98.5 Pulse 72 Resp 18 B/P (MAP) 146/50 (82) Pulse Ox 94 O2 Delivery Room Air Room Air Intake and Output 08/30/18 08/30/18 08/31/18 15:00 23:00 07:00 Intake Total 480 ml 800 ml 400 ml Output Total 2 ml 1 ml Balance 478 ml 799 ml 400 ml JUAN R BANKS MD August 31, 2018 14:18
--- NOTE | 2018-08-31 14:52 | PDOC ---
PROGRESS NOTES Assessment * Fall, prolonged time on the floor, with rhabdomyolysis, doubt that she had a stroke but need to keep it in consideration. * Diabetic peripheral neuropathy. * Chronic low back pain, doubt acute radiculopathy but will keep that in mind as well. Back pain better today * ESR 109, no temporal artery tenderness Plan * Await MRI brain, waiting to remove earings * Agree with holding statin for now * Dr. Akhtar has started prednisone * Will consider MRI of the lumbar spine depending on her course * Rehabilitation modalities. * Recheck CPK * Follow ESR Objective Vital Signs Date Time Temp Pulse Resp B/P (MAP) Pulse Ox O2 Delivery O2 Flow Rate FiO2 08/31/18 12:00 Room Air 08/31/18 11:00 98.5 72 18 146/50 (82) 94 98.5 08/30/18 21:13 2.0 Intake and Output 08/31/18 07:00 Intake Total 1680 ml Output Total 3 ml Balance 1677 ml Intake Oral 1680 ml Output Urine Total 3 ml # Voids 3 PHYSICAL EXAM Alert. Oriented to time, place and person. PERRL. EOMI. CN: no focal findings. Muscle tone: normal. Muscle strength: 4/5, splints the left foot a little bit, erythema of the foot DTR: 1+ Plantar reflex: flexor Gait: not examined in bed. Sensory exam: stocking loss, worse in left leg. No cerebellar signs elicited. No temporal artery tenderness Review of Relevant I have reviewed the following items gretel (where applicable) has been applied. Labs Laboratory Tests Test 08/29/18 18:30 08/29/18 19:24 08/29/18 19:51 08/29/18 21:49 Glucose (Fingerstick) 250 mg/dL (70-99) 161 mg/dL (70-99) White Blood Count 8.4 x10^3/uL (4.0-11.0) Red Blood Count 3.53 x10^6/uL (3.50-5.40) Hemoglobin 11.6 g/dL (12.0-15.5) Hematocrit 33.9 % (36.0-47.0) Mean Corpuscular Volume 96 fL (79-100) Mean Corpuscular Hemoglobin 33 pg (25-35) Mean Corpuscular Hemoglobin Concent 34 g/dL (31-37) Red Cell Distribution Width 15.1 % (11.5-14.5) Platelet Count 272 x10^3/uL (140-400) Neutrophils (%) (Auto) 72 % (31-73) Lymphocytes (%) (Auto) 15 % (24-48) Monocytes (%) (Auto) 11 % (0-9) Eosinophils (%) (Auto) 2 % (0-3) Basophils (%) (Auto) 1 % (0-3) Neutrophils # (Auto) 6.0 x10^3uL (1.8-7.7) Lymphocytes # (Auto) 1.3 x10^3/uL (1.0-4.8) Monocytes # (Auto) 0.9 x10^3/uL (0.0-1.1) Eosinophils # (Auto) 0.1 x10^3/uL (0.0-0.7) Basophils # (Auto) 0.0 x10^3/uL (0.0-0.2) Prothrombin Time 13.9 SEC (11.7-14.0) Prothromb Time International Ratio 1.1 (0.8-1.1) Sodium Level 134 mmol/L (136-145) Potassium Level 4.2 mmol/L (3.5-5.1) Chloride Level 96 mmol/L (98-107) Carbon Dioxide Level 26 mmol/L (21-32) Anion Gap 12 (6-14) Blood Urea Nitrogen 40 mg/dL (7-20) Creatinine 1.5 mg/dL (0.6-1.0) Estimated GFR (Cockcroft-Gault) 33.9 BUN/Creatinine Ratio 27 (6-20) Glucose Level 236 mg/dL (70-99) Calcium Level 9.9 mg/dL (8.5-10.1) Total Bilirubin 0.7 mg/dL (0.2-1.0) Aspartate Amino Transf (AST/SGOT) 48 U/L (15-37) Alanine Aminotransferase (ALT/SGPT) 35 U/L (14-59) Alkaline Phosphatase 57 U/L (46-116) Creatine Kinase 1307 U/L (26-192) Troponin I Quantitative < 0.017 ng/mL (0.000-0.055) Total Protein 7.0 g/dL (6.4-8.2) Albumin 2.9 g/dL (3.4-5.0) Albumin/Globulin Ratio 0.7 (1.0-1.7) Urine Collection Type U cath Urine Color Yellow Urine Clarity Clear Urine pH 6.0 Urine Specific [place] 1.010 Urine Protein Negative mg/dL (NEG-TRACE) Urine Glucose (UA) Negative mg/dL (NEG) Urine Ketones (Stick) Negative mg/dL (NEG) Urine Blood Negative (NEG) Urine Nitrite Negative (NEG) Urine Bilirubin Negative (NEG) Urine Urobilinogen Dipstick 0.2 mg/dL (0.2 mg/dL) Urine Leukocyte Esterase Large (NEG) Urine RBC Occ /HPF (0-2) Urine WBC Tntc /HPF (0-4) Urine Squamous Epithelial Cells Few /LPF Urine Bacteria Few /HPF (0-FEW) Test 08/29/18 23:59 08/30/18 03:50 08/30/18 04:00 08/30/18 07:17 Glucose (Fingerstick) 168 mg/dL (70-99) 159 mg/dL (70-99) Sodium Level 134 mmol/L (136-145) Potassium Level 3.4 mmol/L (3.5-5.1) Chloride Level 99 mmol/L (98-107) Carbon Dioxide Level 25 mmol/L (21-32) Anion Gap 10 (6-14) Blood Urea Nitrogen 34 mg/dL (7-20) Creatinine 1.2 mg/dL (0.6-1.0) Estimated GFR (Cockcroft-Gault) 43.9 Glucose Level 207 mg/dL (70-99) Uric Acid 8.5 mg/dL (2.6-6.0) Calcium Level 8.9 mg/dL (8.5-10.1) Creatine Kinase 1090 U/L (26-192) Test 08/30/18 11:23 08/30/18 12:22 08/30/18 16:45 08/30/18 20:29 Glucose (Fingerstick) 242 mg/dL (70-99) 328 mg/dL (70-99) 315 mg/dL (70-99) Erythrocyte Sedimentation Rate 109 (0-25) Test 08/31/18 04:10 08/31/18 09:10 08/31/18 11:55 White Blood Count 6.1 x10^3/uL (4.0-11.0) Red Blood Count 3.34 x10^6/uL (3.50-5.40) Hemoglobin 10.7 g/dL (12.0-15.5) Hematocrit 32.3 % (36.0-47.0) Mean Corpuscular Volume 97 fL (79-100) Mean Corpuscular Hemoglobin 32 pg (25-35) Mean Corpuscular Hemoglobin Concent 33 g/dL (31-37) Red Cell Distribution Width 15.0 % (11.5-14.5) Platelet Count 254 x10^3/uL (140-400) Neutrophils (%) (Auto) 59 % (31-73) Lymphocytes (%) (Auto) 30 % (24-48) Monocytes (%) (Auto) 9 % (0-9) Eosinophils (%) (Auto) 2 % (0-3) Basophils (%) (Auto) 1 % (0-3) Neutrophils # (Auto) 3.6 x10^3uL (1.8-7.7) Lymphocytes # (Auto) 1.8 x10^3/uL (1.0-4.8) Monocytes # (Auto) 0.5 x10^3/uL (0.0-1.1) Eosinophils # (Auto) 0.1 x10^3/uL (0.0-0.7) Basophils # (Auto) 0.0 x10^3/uL (0.0-0.2) Sodium Level 140 mmol/L (136-145) Potassium Level 4.5 mmol/L (3.5-5.1) Chloride Level 104 mmol/L (98-107) Carbon Dioxide Level 29 mmol/L (21-32) Anion Gap 7 (6-14) Blood Urea Nitrogen 28 mg/dL (7-20) Creatinine 1.6 mg/dL (0.6-1.0) Estimated GFR (Cockcroft-Gault) 31.5 Glucose Level 164 mg/dL (70-99) Calcium Level 9.4 mg/dL (8.5-10.1) Phosphorus Level 2.6 mg/dL (2.6-4.7) Albumin 2.7 g/dL (3.4-5.0) Glucose (Fingerstick) 220 mg/dL (70-99) 154 mg/dL (70-99) Laboratory Tests Test 08/30/18 16:45 08/30/18 20:29 08/31/18 04:10 08/31/18 09:10 Glucose (Fingerstick) 328 mg/dL (70-99) 315 mg/dL (70-99) 220 mg/dL (70-99) White Blood Count 6.1 x10^3/uL (4.0-11.0) Red Blood Count 3.34 x10^6/uL (3.50-5.40) Hemoglobin 10.7 g/dL (12.0-15.5) Hematocrit 32.3 % (36.0-47.0) Mean Corpuscular Volume 97 fL (79-100) Mean Corpuscular Hemoglobin 32 pg (25-35) Mean Corpuscular Hemoglobin Concent 33 g/dL (31-37) Red Cell Distribution Width 15.0 % (11.5-14.5) Platelet Count 254 x10^3/uL (140-400) Neutrophils (%) (Auto) 59 % (31-73) Lymphocytes (%) (Auto) 30 % (24-48) Monocytes (%) (Auto) 9 % (0-9) Eosinophils (%) (Auto) 2 % (0-3) Basophils (%) (Auto) 1 % (0-3) Neutrophils # (Auto) 3.6 x10^3uL (1.8-7.7) Lymphocytes # (Auto) 1.8 x10^3/uL (1.0-4.8) Monocytes # (Auto) 0.5 x10^3/uL (0.0-1.1) Eosinophils # (Auto) 0.1 x10^3/uL (0.0-0.7) Basophils # (Auto) 0.0 x10^3/uL (0.0-0.2) Sodium Level 140 mmol/L (136-145) Potassium Level 4.5 mmol/L (3.5-5.1) Chloride Level 104 mmol/L (98-107) Carbon Dioxide Level 29 mmol/L (21-32) Anion Gap 7 (6-14) Blood Urea Nitrogen 28 mg/dL (7-20) Creatinine 1.6 mg/dL (0.6-1.0) Estimated GFR (Cockcroft-Gault) 31.5 Glucose Level 164 mg/dL (70-99) Calcium Level 9.4 mg/dL (8.5-10.1) Phosphorus Level 2.6 mg/dL (2.6-4.7) Albumin 2.7 g/dL (3.4-5.0) Test 08/31/18 11:55 Glucose (Fingerstick) 154 mg/dL (70-99) Medications Current Medications Albuterol/ Ipratropium (Duoneb) 3 ml 1X ONCE NEB Last administered on 08/29/18at 19:42; Start 08/29/18 at 19:15; Stop 08/29/18 at 19:16; Status DC Sodium Chloride 1,000 ml @ 1,000 mls/hr 1X ONCE IV Last administered on 08/29/18at 19:44; Start 08/29/18 at 19:15; Stop 08/29/18 at 20:14; Status DC Sodium Chloride 1,000 ml @ 1,000 mls/hr 1X ONCE IV Last administered on 08/29/18at 21:44; Start 08/29/18 at 20:15; Stop 08/29/18 at 21:14; Status DC Levofloxacin/ Dextrose (Levaquin Per Pharmacy) 1 each PRN DAILY PRN MC SEE COMMENTS; Start 08/29/18 at 20:30 Sodium Chloride 1,000 ml @ 75 mls/hr [id number] IV Last administered on 08/29/18at 22:52; Start 08/29/18 at 20:29; Stop 08/30/18 at 20:28; Status DC Albuterol/ Ipratropium (Duoneb) 3 ml RTQID NEB ; Start 08/30/18 at 21:00; Stop 08/30/18 at 21:00; Status DC Levofloxacin/ Dextrose 50 ml @ 100 mls/hr Q24H IV Last administered on 08/30/18at 20:56; Start 08/29/18 at 21:00 Albuterol/ Ipratropium (Duoneb) 3 ml RTQID NEB Last administered on 08/31/18at 11:56; Start 08/30/18 at 08:15 Levofloxacin/ Dextrose 50 ml @ 50 mls/hr Q24H IV ; Start 08/30/18 at 08:30; Status UNV Potassium Chloride (Klor-Con) 40 meq 1X ONCE PO Last administered on 08/30/18 10:59; Start 08/30/18 at 10:15; Stop 08/30/18 at 10:16; Status DC Potassium Chloride (Klor-Con) 20 meq [id number] PO Last administered on 08/31/18 09:07; Start 08/31/18 at 08:00 Amlodipine Besylate (Norvasc) 5 mg DAILY PO Last administered on 08/31/18 09:08; Start 08/30/18 at 11:00 Aspirin (Children'S Aspirin) 81 mg BID PO Last administered on 08/31/18 09:07; Start 08/30/18 at 11:00 Folic Acid (Folic Acid) 1 mg BID PO Last administered on 08/31/18 09:08; Start 08/30/18 at 11:00 Acetaminophen/ Hydrocodone Bitart (Lortab 5/325) 1 tab PRN Q6HRS PRN PO MODERATE PAIN; Start 08/30/18 at 10:30 Nortriptyline HCl (Pamelor) 25 mg DAILY PO Last administered on 08/31/18 09:07; Start 08/30/18 at 11:00 Non-Formulary Medication (Albuterol Sulfate (Proair Respiclick)) 1 puff Q4HRS INH ; Start 08/30/18 at 12:00; Status UNV Duloxetine HCl (Cymbalta) 60 mg DAILY PO Last administered on 08/31/18 09:07; Start 08/30/18 at 11:00 Non-Formulary Medication (Icosapent Ethyl (Vascepa)) 1 gm BID PO ; Start 08/30/18 at 21:00; Status UNV Insulin Glargine (Lantus) 40 units QHS SQ Last administered on 08/30/18 21:00; Start 08/30/18 at 21:00 Labetalol HCl (Trandate) 100 mg BID PO Last administered on 08/31/18 09:07; Start 08/30/18 at 11:00 Prednisone (Prednisone) 10 mg DAILY PO Last administered on 08/31/18 09:07; Start 08/30/18 at 10:45 Pantoprazole Sodium (Protonix) 40 mg DAILYAC PO Last administered on 5/5/19at 09:07; Start 08/30/18 at 11:30 Albuterol Sulfate (Ventolin Neb Soln) 2.5 mg Q4HRS@0000,0400 NEB ; Start 08/31/18 at 00:00 Polysaccharide Iron Complex (Niferex 150) 150 mg BID PO Last administered on 08/31/18at 09:06; Start 08/30/18 at 11:00 Insulin Human Lispro (HumaLOG) 0-5 UNITS TIDWMEALS SQ Last administered on 08/31/18at 12:39; Start 08/30/18 at 12:00 Dextrose (Dextrose 50%-Water Syringe) 12.5 gm PRN Q15MIN PRN IV SEE COMMENTS; Start 08/30/18 at 11:45 Sodium Chloride 1,000 ml @ 75 mls/hr [id number] IV Last administered on 08/31/18at 13:59; Start 08/31/18 at 13:00 Lactobacillus Rhamnosus (Culturelle) 1 cap BID PO ; Start 08/31/18 at 21:00 Active Scripts Active [place] 5-325 Tablet (Acetaminophen/Hydrocodone Bitart) 1 Each Tablet 1 Tab PO PRN Q6HRS PRN Reported Vascepa (Icosapent Ethyl) 1 Gm Capsule 1 Gm PO BID Proair Respiclick (Albuterol Sulfate) 90 Mcg Aer.pow.ba 1 Puff INH Q4HRS Nortriptyline Hcl 25 Mg Capsule 25 Mg PO DAILY Levemir (Insulin Detemir) 100 Unit/1 Ml Vial 40 Unit SQ HS Folic Acid 1 Mg Tablet 1 Tab PO BID Metformin Hcl 500 Mg Tablet 1 Tab PO BID Novolog Flexpen (Insulin Aspart) 100 Unit/1 Ml Insuln.pen 15 Unit SQ TIDAC Cyclobenzaprine Hcl 10 Mg Tablet 1 Tab PO BID Atorvastatin Calcium 40 Mg Tablet 1 Tab PO QHS Amlodipine Besylate 10 Mg Tablet 0.5 Tab PO HS Losartan-Hctz 100-25 Mg Tab (Losartan/Hydrochlorothiazide) 1 Each Tablet 1 Tab PO DAILY Duloxetine Hcl 60 Mg Capsule.dr 60 Mg PO DAILY Aspirin 81 Mg Tab.chew 1 Tab PO BID Labetalol Hcl 100 Mg Tablet 1 Tab PO BID Vitals/I & O Vital Sign - Last 24 Hours 08/30/18 08/30/18 08/30/18 08/30/18 16:21 19:25 20:00 20:56 Temp 99.1 99.1 Pulse 93 93 Resp 18 B/P (MAP) 144/63 (90) 144/63 Pulse Ox 100 92 O2 Delivery Room Air Room Air Room Air 08/30/18 08/30/18 08/30/18 08/31/18 21:13 21:17 23:25 03:25 Temp 98.9 98.2 98.9 98.2 Pulse 80 80 Resp 18 18 B/P (MAP) 133/67 (89) 180/63 (102) Pulse Ox 92 92 92 93 O2 Delivery Room Air Room Air Room Air Room Air O2 Flow Rate 2.0 08/31/18 08/31/18 08/31/18 08/31/18 07:00 07:50 09:07 09:08 Temp 98.1 98.1 Pulse 83 83 83 Resp 18 B/P (MAP) 166/81 (109) 166/81 166/81 Pulse Ox 94 94 O2 Delivery Room Air Room Air 08/31/18 08/31/18 11:00 12:00 Temp 98.5 98.5 Pulse 72 Resp 18 B/P (MAP) 146/50 (82) Pulse Ox 94 O2 Delivery Room Air Room Air Intake and Output 08/30/18 08/30/18 08/31/18 15:00 23:00 07:00 Intake Total 480 ml 800 ml 400 ml Output Total 2 ml 1 ml Balance 478 ml 799 ml 400 ml Images Carotids: There is mild atherosclerotic plaque within the carotid bulbs and proximal and external carotid arteries. The peak systolic velocity within the right common carotid artery is 122 cm/sec. The peak systolic velocity within the right internal carotid artery is 119 cm/sec and the end diastolic velocity within the right internal carotid artery is 24 cm/sec. The right ICA/CCA ratio is 1.03. The peak systolic velocity within the left common carotid artery is 118 cm/sec. The peak systolic velocity within the left internal carotid artery is 118 cm/sec and the end diastolic velocity within the left internal carotid artery is 24 cm/sec. The left ICA/CCA ratio is 1.16. There is normal antegrade flow within both vertebral arteries. IMPRESSION: No convincing Doppler evidence of greater than 50% stenosis within the internal carotid arteries or hemodynamically significant stenosis involving the vertebral arteries. MIREYA CHEW MD August 31, 2018 14:52
[2018-08-31 14:56] VITALS: BP 157/51
[2018-08-31 19:30] VITALS: BP 181/57
[2018-08-31] MEDS: LACTOBACILLUS RHAMNOSUS GG 1 CAPSULE. PO SCH (21:05)
[2018-08-31] MEDS: OMEGA-3 FATTY ACIDS/FISH OIL 1,000 MG CAPSULE. PO SCH (21:05)
[2018-08-31] MEDS: INSULIN GLARGINE 300 UNITS/3 ML INSULN.PEN. SQ SCH (21:12)
[2018-08-31 23:45] VITALS: BP 181/65
[2018-09-01] MEDS ORDERED: ALBUTEROL SULFATE 2.5 MG/3 ML NEBU. NEB SCH
[2018-09-01] MEDS ORDERED: ALBUTEROL SULFATE 2.5 MG/3 ML NEBU. NEB PRN
[2018-09-01] MEDS: IV NORMAL SALINE 1000ML BAG 1,000 ML IV SCH ×2 (02:20→15:28)
[2018-09-01 03:58] VITALS: BP 151/56
[2018-09-01 04:35] LABS: BASO % 1 % (0-3); EOS # 0.2 x10^3/uL (0.0-0.7); EOS % 3 % (0-3); HEMATOCRIT 32.5 % (36.0-47.0); HEMOGLOBIN 10.7 g/dL (12.0-15.5); LYMPH # 2.3 x10^3/uL (1.0-4.8); LYMPH % 35 % (24-48); MEAN CORPUSCULAR HEMOGLOBIN 32 pg (25-35); MEAN CORPUSCULAR HGB CONC 33 g/dL (31-37); MEAN CORPUSCULAR VOLUME 97 fL (79-100); MONO # 0.6 x10^3/uL (0.0-1.1); MONO % 9 % (0-9); NEUT # 3.5 x10^3uL (1.8-7.7); NEUT % 53 % (31-73); PLATELET COUNT 265 x10^3/uL (140-400); RED BLOOD COUNT 3.35 x10^6/uL (3.50-5.40); WHITE BLOOD COUNT 6.7 x10^3/uL (4.0-11.0)
[2018-09-01 05:37] LABS: ALBUMIN 2.7 g/dL (3.4-5.0); ALBUMIN/GLOBULIN RATIO 0.7 (1.0-1.7); CALCIUM 9.4 mg/dL (8.5-10.1); CREATININE 1.3 mg/dL (0.6-1.0); POTASSIUM 4.5 mmol/L (3.5-5.1); TOTAL BILIRUBIN 0.3 mg/dL (0.2-1.0); TOTAL PROTEIN 6.5 g/dL (6.4-8.2)
[2018-09-01 07:00] VITALS: BP 160/70
[2018-09-01] MEDS: IPRATRPIUM/ALBUTEROL 0.5/2.5MG 3 ML NEBU. NEB SCH ×4 (07:53→20:01)
[2018-09-01] MEDS: INSULIN LISPRO 300 UNITS/3 ML INSULN.PEN. SQ SCH ×4 (08:00→17:17)
[2018-09-01] MEDS ORDERED: DEXTROSE 50% 25 GM / 50ML DISP.SYRIN. IV PRN (08:30)
--- NOTE | 2018-09-01 08:44 | RAD ---
EXAMINATION: Magnetic resonance imaging (MRI) of the brain and brainstem without contrast 08/31/2018 12:00 PM HISTORY: Left leg weakness, syncope TECHNIQUE: Multiplanar multi-weighted MRI of the brain and brainstem was performed without intravenous contrast using the general brain protocol. COMPARISON: CT head August 29, 2018 FINDINGS: The scalp and calvarium are normal. The superior sagittal sinus demonstrates normal venous flow. The corpus callosum is normal in shape and signal intensity. The posterior fossa is unremarkable. The pituitary and sella are normal. The brainstem and craniocervical junction are unremarkable. There are T2/FLAIR signal hyperintense foci in the periventricular and subcortical white matter most suggestive of mild chronic small vessel ischemic changes. 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 Diffusion weighted images reveal no hyperintensities to suggest acute cerebral infarction. The susceptibility weighted sequences reveal no evidence of acute or chronic hemorrhage. The ventricles are normal in size and position without evidence of hydrocephalus. The paranasal sinuses are normal. The visualized portions of the mastoids are unremarkable. The orbits appear normal with exception of bilateral lens replacement. Normal flow voids are demonstrated in the carotid arteries and basilar artery. IMPRESSION: No evidence for acute or subacute ischemia. 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 There are T2/FLAIR signal hyperintense foci in the periventricular and subcortical white matter most suggestive of mild chronic small vessel ischemic changes. Electronically signed by: Linda Hawkins MD (09/01/2018 8:41 AM) [id number]
[2018-09-01] MEDS ORDERED: cloNIDine HCL 0.1 MG TABLET PO PRN (08:45)
[2018-09-01] MEDS: LACTOBACILLUS RHAMNOSUS GG 1 CAPSULE. PO SCH ×2 (09:00→19:55)
[2018-09-01] MEDS: IRON POLYSACCHARIDE COMPLEX 150 MG CAPSULE PO SCH ×2 (09:37→19:54)
[2018-09-01] MEDS: OMEGA-3 FATTY ACIDS/FISH OIL 1,000 MG CAPSULE. PO SCH ×2 (09:37→19:55)
[2018-09-01] MEDS: NORTRIPTYLINE 25 MG CAPSULE PO SCH (09:37)
[2018-09-01] MEDS: PANTOPRAZOLE 40 MG TABLET.DR. PO SCH (09:37)
[2018-09-01] MEDS: DULoxetine HCL 30 MG CAPSULE.DR PO SCH (09:37)
[2018-09-01] MEDS: POTASSIUM CHLORIDE 20 MEQ TABLET.ER. PO SCH (09:37)
[2018-09-01] MEDS: LABETALOL HCL 100 MG TABLET. PO SCH ×2 (09:37→19:55)
[2018-09-01] MEDS: predniSONE 10 MG TABLET PO SCH (09:37)
[2018-09-01] MEDS: FOLIC ACID 1 MG TABLET. PO SCH ×2 (09:38→19:54)
[2018-09-01] MEDS: ASPIRIN CHEWABLE 81 MG TABLET. PO SCH ×2 (09:38→19:54)
[2018-09-01] MEDS: amLODIPine BESYLATE 10 MG TABLET PO SCH (09:38)
--- NOTE | 2018-09-01 10:01 | CARD ---
MR#: [id number] Date of Study: 09/01/2018 Ordering Physician: MARISOL LEMOS, Referring Physician: MARISOL LEMOS, Tech: Melba Sanchez RDCS APPROVED REPORT EXAM: Two-dimensional and M-mode echocardiogram with Doppler and color Doppler. Other Information Quality : Good INDICATION Syncope 2D DIMENSIONS RVDd2.7 (2.9-3.5cm)Left Atrium(2D)3.8 (1.6-4.0cm) IVSd1.6 (0.7-1.1cm)Aortic Root(2D)2.8 (2.0-3.7cm) LVDd3.9 (3.9-5.9cm)LVOT Diameter2.0 (1.8-2.4cm) PWd1.4 (0.7-1.1cm)LVDs2.6 (2.5-4.0cm) FS (%) 32.9 %SV40.6 ml LVEF(%)62.0 (>50%) M-Mode DIMENSIONS Aortic Cusp Exc1.55 (1.5-2.0cm) Aortic Valve AoV Peak Jeremias.211.9cm/sAoV VTI46.5cm AO Peak GR.18.0mmHgLVOT Peak Jeremias.122.5cm/s LVOT VTI 28.18cmAO Mean GR.10mmHg EBEN (VMAX)1.36do7OFE (VTI)1.96cm2 Mitral Valve MV E Suzxwkop233.5cm/sMV DECEL UOHV571eq MV A Dzmnzevh538.3cm/sMV TMS64vs E/A Ratio1.3MVA (PHT)4.22cm2 TDI E/Lateral E'24.5E/Medial E'32.8 Tricuspid Valve TR P. Asvygrpt960ks/sRAP EUGUYZLY7ktMf TR Peak Gr.95lvTpYMMK88xnNu Pulmonary Vein S1 Thjrbitx06.5cm/sD2 Qbbkympf21.3cm/s LEFT VENTRICLE The left ventricle is normal size. There is mild to moderate concentric left ventricular hypertrophy. The left ventricular systolic function is normal. The Ejection Fraction is 60-65%. There is normal L V segmental wall motion. RIGHT VENTRICLE The right ventricle is normal size. The right ventricular systolic function is normal. ATRIA The left atrium size is normal. The right atrium size is normal. The interatrial septum is intact wit h no evidence for an atrial septal defect or patent foramen ovale as noted on 2-D or Doppler imaging. AORTIC VALVE The aortic valve is calcified but opens well. Doppler and Color Flow revealed trace aortic regurgitat ion. There is no significant aortic valvular stenosis. MITRAL VALVE The mitral valve is calcified but opens well. Mitral annular calcification is mild. There is no evide nce of mitral valve prolapse. There is no mitral valve stenosis. Doppler and Color-flow revealed trac e to mild mitral regurgitation. TRICUSPID VALVE The tricuspid valve is normal in structure and function. Doppler and Color Flow revealed mild tricusp id regurgitation. There is moderate pulmonary hypertension. The PA pressure was estimated at 44 mmHg. There is no tricuspid valve stenosis. PULMONIC VALVE The pulmonic valve is not well visualized. Doppler and Color Flow revealed no pulmonic valvular regur gitation. There is no pulmonic valvular stenosis. GREAT VESSELS The aortic root is normal in size. The ascending aorta is normal in size. The IVC is normal in size a nd collapses >50% with inspiration. PERICARDIAL EFFUSION There is no evidence of significant pericardial effusion. Critical Notification Critical Value: No <Conclusion> The left ventricular systolic function is normal. The Ejection Fraction is 60-65%. There is normal LV segmental wall motion. Trace to mild mitral regurgitation. Mild tricuspid regurgitation. There is moderate pulmonary hypertension. The PA pressure was estimated at 44 mmHg. There is no evidence of significant pericardial effusion. Signed by : Ede Anthony, Electronically Approved : 09/01/2018 10:01:05
--- NOTE | 2018-09-01 10:24 | PDOC ---
PROGRESS NOTES Subjective Subjective She feels better with her left foot discomfort. Objective Objective Vital Signs Date Time Temp Pulse Resp B/P (MAP) Pulse Ox O2 Delivery O2 Flow Rate FiO2 09/01/18 09:38 72 160/70 09/01/18 08:00 Room Air 2.0 09/01/18 07:54 93 09/01/18 07:00 98.4 16 98.4 Intake and Output 09/01/18 06:59 Intake Total 2480 ml Balance 2480 ml Intake Oral 2480 ml # Voids 5 # Bowel Movements 1 Physical Exam Physical Exam She is supine in bed and does not seem to be in any distress and she had some edema and tenderness to palpation over left foot and ankle. Her serum uric acid and sed rate are elevated. Plan Plan of Care To let to decide on adding colchicine in addition to prednisone to help with her gouty arthritis left foot if her renal function allows. To consider starting her on allopurinol to prevent recurrent gout episodes as this seems to be second episode in the last 30 days. Comment Review of Relevant I have reviewed the following items gretel (where applicable) has been applied. Labs Laboratory Tests Test 08/30/18 11:23 08/30/18 12:22 08/30/18 16:45 08/30/18 20:29 Glucose (Fingerstick) 242 mg/dL (70-99) 328 mg/dL (70-99) 315 mg/dL (70-99) Erythrocyte Sedimentation Rate 109 (0-25) Test 08/31/18 04:10 08/31/18 09:10 08/31/18 11:55 08/31/18 17:01 White Blood Count 6.1 x10^3/uL (4.0-11.0) Red Blood Count 3.34 x10^6/uL (3.50-5.40) Hemoglobin 10.7 g/dL (12.0-15.5) Hematocrit 32.3 % (36.0-47.0) Mean Corpuscular Volume 97 fL (79-100) Mean Corpuscular Hemoglobin 32 pg (25-35) Mean Corpuscular Hemoglobin Concent 33 g/dL (31-37) Red Cell Distribution Width 15.0 % (11.5-14.5) Platelet Count 254 x10^3/uL (140-400) Neutrophils (%) (Auto) 59 % (31-73) Lymphocytes (%) (Auto) 30 % (24-48) Monocytes (%) (Auto) 9 % (0-9) Eosinophils (%) (Auto) 2 % (0-3) Basophils (%) (Auto) 1 % (0-3) Neutrophils # (Auto) 3.6 x10^3uL (1.8-7.7) Lymphocytes # (Auto) 1.8 x10^3/uL (1.0-4.8) Monocytes # (Auto) 0.5 x10^3/uL (0.0-1.1) Eosinophils # (Auto) 0.1 x10^3/uL (0.0-0.7) Basophils # (Auto) 0.0 x10^3/uL (0.0-0.2) Sodium Level 140 mmol/L (136-145) Potassium Level 4.5 mmol/L (3.5-5.1) Chloride Level 104 mmol/L (98-107) Carbon Dioxide Level 29 mmol/L (21-32) Anion Gap 7 (6-14) Blood Urea Nitrogen 28 mg/dL (7-20) Creatinine 1.6 mg/dL (0.6-1.0) Estimated GFR (Cockcroft-Gault) 31.5 Glucose Level 164 mg/dL (70-99) Calcium Level 9.4 mg/dL (8.5-10.1) Phosphorus Level 2.6 mg/dL (2.6-4.7) Albumin 2.7 g/dL (3.4-5.0) Glucose (Fingerstick) 220 mg/dL (70-99) 154 mg/dL (70-99) 297 mg/dL (70-99) Test 08/31/18 20:58 09/01/18 03:49 09/01/18 07:11 Glucose (Fingerstick) 321 mg/dL (70-99) 124 mg/dL (70-99) White Blood Count 6.7 x10^3/uL (4.0-11.0) Red Blood Count 3.35 x10^6/uL (3.50-5.40) Hemoglobin 10.7 g/dL (12.0-15.5) Hematocrit 32.5 % (36.0-47.0) Mean Corpuscular Volume 97 fL (79-100) Mean Corpuscular Hemoglobin 32 pg (25-35) Mean Corpuscular Hemoglobin Concent 33 g/dL (31-37) Red Cell Distribution Width 15.0 % (11.5-14.5) Platelet Count 265 x10^3/uL (140-400) Neutrophils (%) (Auto) 53 % (31-73) Lymphocytes (%) (Auto) 35 % (24-48) Monocytes (%) (Auto) 9 % (0-9) Eosinophils (%) (Auto) 3 % (0-3) Basophils (%) (Auto) 1 % (0-3) Neutrophils # (Auto) 3.5 x10^3uL (1.8-7.7) Lymphocytes # (Auto) 2.3 x10^3/uL (1.0-4.8) Monocytes # (Auto) 0.6 x10^3/uL (0.0-1.1) Eosinophils # (Auto) 0.2 x10^3/uL (0.0-0.7) Basophils # (Auto) 0.0 x10^3/uL (0.0-0.2) Sodium Level 142 mmol/L (136-145) Potassium Level 4.5 mmol/L (3.5-5.1) Chloride Level 106 mmol/L (98-107) Carbon Dioxide Level 27 mmol/L (21-32) Anion Gap 9 (6-14) Blood Urea Nitrogen 25 mg/dL (7-20) Creatinine 1.3 mg/dL (0.6-1.0) Estimated GFR (Cockcroft-Gault) 40.0 BUN/Creatinine Ratio 19 (6-20) Glucose Level 204 mg/dL (70-99) Calcium Level 9.4 mg/dL (8.5-10.1) Total Bilirubin 0.3 mg/dL (0.2-1.0) Aspartate Amino Transf (AST/SGOT) 32 U/L (15-37) Alanine Aminotransferase (ALT/SGPT) 49 U/L (14-59) Alkaline Phosphatase 62 U/L (46-116) Creatine Kinase 385 U/L (26-192) Total Protein 6.5 g/dL (6.4-8.2) Albumin 2.7 g/dL (3.4-5.0) Albumin/Globulin Ratio 0.7 (1.0-1.7) Laboratory Tests Test 08/31/18 11:55 08/31/18 17:01 08/31/18 20:58 09/01/18 03:49 Glucose (Fingerstick) 154 mg/dL (70-99) 297 mg/dL (70-99) 321 mg/dL (70-99) White Blood Count 6.7 x10^3/uL (4.0-11.0) Red Blood Count 3.35 x10^6/uL (3.50-5.40) Hemoglobin 10.7 g/dL (12.0-15.5) Hematocrit 32.5 % (36.0-47.0) Mean Corpuscular Volume 97 fL (79-100) Mean Corpuscular Hemoglobin 32 pg (25-35) Mean Corpuscular Hemoglobin Concent 33 g/dL (31-37) Red Cell Distribution Width 15.0 % (11.5-14.5) Platelet Count 265 x10^3/uL (140-400) Neutrophils (%) (Auto) 53 % (31-73) Lymphocytes (%) (Auto) 35 % (24-48) Monocytes (%) (Auto) 9 % (0-9) Eosinophils (%) (Auto) 3 % (0-3) Basophils (%) (Auto) 1 % (0-3) Neutrophils # (Auto) 3.5 x10^3uL (1.8-7.7) Lymphocytes # (Auto) 2.3 x10^3/uL (1.0-4.8) Monocytes # (Auto) 0.6 x10^3/uL (0.0-1.1) Eosinophils # (Auto) 0.2 x10^3/uL (0.0-0.7) Basophils # (Auto) 0.0 x10^3/uL (0.0-0.2) Sodium Level 142 mmol/L (136-145) Potassium Level 4.5 mmol/L (3.5-5.1) Chloride Level 106 mmol/L (98-107) Carbon Dioxide Level 27 mmol/L (21-32) Anion Gap 9 (6-14) Blood Urea Nitrogen 25 mg/dL (7-20) Creatinine 1.3 mg/dL (0.6-1.0) Estimated GFR (Cockcroft-Gault) 40.0 BUN/Creatinine Ratio 19 (6-20) Glucose Level 204 mg/dL (70-99) Calcium Level 9.4 mg/dL (8.5-10.1) Total Bilirubin 0.3 mg/dL (0.2-1.0) Aspartate Amino Transf (AST/SGOT) 32 U/L (15-37) Alanine Aminotransferase (ALT/SGPT) 49 U/L (14-59) Alkaline Phosphatase 62 U/L (46-116) Creatine Kinase 385 U/L (26-192) Total Protein 6.5 g/dL (6.4-8.2) Albumin 2.7 g/dL (3.4-5.0) Albumin/Globulin Ratio 0.7 (1.0-1.7) Test 09/01/18 07:11 Glucose (Fingerstick) 124 mg/dL (70-99) Microbiology 08/29/18 Urine Culture - Final, Complete 08/29/18 Urine Culture Result 1 (SABINO) - Final, Complete Medications Current Medications Albuterol/ Ipratropium (Duoneb) 3 ml 1X ONCE NEB Last administered on 08/29/18at 19:42; Start 08/29/18 at 19:15; Stop 08/29/18 at 19:16; Status DC Sodium Chloride 1,000 ml @ 1,000 mls/hr 1X ONCE IV Last administered on 08/29/18at 19:44; Start 08/29/18 at 19:15; Stop 08/29/18 at 20:14; Status DC Sodium Chloride 1,000 ml @ 1,000 mls/hr 1X ONCE IV Last administered on 08/29/18at 21:44; Start 08/29/18 at 20:15; Stop 08/29/18 at 21:14; Status DC Levofloxacin/ Dextrose (Levaquin Per Pharmacy) 1 each PRN DAILY PRN MC SEE COMMENTS; Start 08/29/18 at 20:30 Sodium Chloride 1,000 ml @ 75 mls/hr [id number] IV Last administered on 08/29/18at 22:52; Start 08/29/18 at 20:29; Stop 08/30/18 at 20:28; Status DC Albuterol/ Ipratropium (Duoneb) 3 ml RTQID NEB ; Start 08/30/18 at 21:00; Stop 08/30/18 at 21:00; Status DC Levofloxacin/ Dextrose 50 ml @ 100 mls/hr Q24H IV Last administered on 08/31/18at 21:05; Start 08/29/18 at 21:00 Albuterol/ Ipratropium (Duoneb) 3 ml RTQID NEB Last administered on 09/01/18at 07:53; Start 08/30/18 at 08:15 Levofloxacin/ Dextrose 50 ml @ 50 mls/hr Q24H IV ; Start 08/30/18 at 08:30; S tatus UNV Potassium Chloride (Klor-Con) 40 meq 1X ONCE PO Last administered on 08/30/18at 10:59; Start 08/30/18 at 10:15; Stop 08/30/18 at 10:16; Status DC Potassium Chloride (Klor-Con) 20 meq [id number] PO Last administered on 09/01/18 09:37; Start 08/31/18 at 08:00 Amlodipine Besylate (Norvasc) 5 mg DAILY PO Last administered on 08/31/18 09:08; Start 08/30/18 at 11:00; Stop 09/01/18 at 08:32; Status DC Aspirin (Children'S Aspirin) 81 mg BID PO Last administered on 09/01/18 09:38; Start 08/30/18 at 11:00 Folic Acid (Folic Acid) 1 mg BID PO Last administered on 09/01/18 09:38; Start 08/30/18 at 11:00 Acetaminophen/ Hydrocodone Bitart (Lortab 5/325) 1 tab PRN Q6HRS PRN PO MODERATE PAIN; Start 08/30/18 at 10:30 Nortriptyline HCl (Pamelor) 25 mg DAILY PO Last administered on 09/01/18 09:37; Start 08/30/18 at 11:00 Non-Formulary Medication (Albuterol Sulfate (Proair Respiclick)) 1 puff Q4HRS INH ; Start 08/30/18 at 12:00; Status UNV Duloxetine HCl (Cymbalta) 60 mg DAILY PO Last administered on 09/01/18at 09:37; Start 08/30/18 at 11:00 Non-Formulary Medication (Icosapent Ethyl (Vascepa)) 1 gm BID PO ; Start 08/30/18 at 21:00; Stop 08/31/18 at 17:21; Status DC Insulin Glargine (Lantus) 40 units QHS SQ Last administered on 08/31/18at 21:12; Start 08/30/18 at 21:00 Labetalol HCl (Trandate) 100 mg BID PO Last administered on 09/01/18 09:37; Start 08/30/18 at 11:00 Prednisone (Prednisone) 10 mg DAILY PO Last administered on 09/01/18 09:37; Start 08/30/18 at 10:45 Pantoprazole Sodium (Protonix) 40 mg DAILYAC PO Last administered on 09/01/18 09:37; Start 08/30/18 at 11:30 Albuterol Sulfate (Ventolin Neb Soln) 2.5 mg Q4HRS@0000,0400 NEB ; Start 08/31/18 at 00:00; Stop 08/31/18 at 23:18; Status DC Polysaccharide Iron Complex (Niferex 150) 150 mg BID PO Last administered on 09/01/18 09:37; Start 08/30/18 at 11:00 Insulin Human Lispro (HumaLOG) 0-5 UNITS TIDWMEALS SQ Last administered on 08/31/18 17:23; Start 08/30/18 at 12:00; Stop 09/01/18 at 08:32; Status DC Dextrose (Dextrose 50%-Water Syringe) 12.5 gm PRN Q15MIN PRN IV SEE COMMENTS; Start 08/30/18 at 11:45 Sodium Chloride 1,000 ml @ 75 mls/hr [id number] IV Last administered on 08/31/18at 13:59; Start 08/31/18 at 13:00 Lactobacillus Rhamnosus (Culturelle) 1 cap BID PO Last administered on 08/31/18 21:05; Start 08/31/18 at 21:00 Fish Oil (Fish Oil) 1,000 mg BID PO Last administered on 09/01/18 09:37; Start 08/31/18 at 21:00 Albuterol Sulfate (Ventolin Neb Soln) 2.5 mg Q4HRS NEB ; Start 09/01/18 at 00:00; Stop 09/01/18 at 00:00; Status DC Albuterol Sulfate (Ventolin Neb Soln) 2.5 mg PRN Q4HRS PRN NEB SHORTNESS OF BREATH; Start 09/01/18 at 00:00 Amlodipine Besylate (Norvasc) 10 mg DAILY PO Last administered on 09/01/18at 09:38; Start 09/01/18 at 09:00 Insulin Human Lispro (HumaLOG) 0-9 UNITS TIDWMEALS SQ ; Start 09/01/18 at 09:00 Dextrose (Dextrose 50%-Water Syringe) 12.5 gm PRN Q15MIN PRN IV SEE COMMENTS; Start 09/01/18 at 08:30; Status UNV Clonidine HCl (Catapres) 0.1 mg PRN Q1HR PRN PO HYPERTENSION, SEE COMMENTS; Start 09/01/18 at 08:45 Active Scripts Active Silvis 5-325 Tablet (Acetaminophen/Hydrocodone Bitart) 1 Each Tablet 1 Tab PO PRN Q6HRS PRN Reported Vascepa (Icosapent Ethyl) 1 Gm Capsule 1 Gm PO BID Proair Respiclick (Albuterol Sulfate) 90 Mcg Aer.pow.ba 1 Puff INH Q4HRS Nortriptyline Hcl 25 Mg Capsule 25 Mg PO DAILY Levemir (Insulin Detemir) 100 Unit/1 Ml Vial 40 Unit SQ HS Folic Acid 1 Mg Tablet 1 Tab PO BID Metformin Hcl 500 Mg Tablet 1 Tab PO BID Novolog Flexpen (Insulin Aspart) 100 Unit/1 Ml Insuln.pen 15 Unit SQ TIDAC Cyclobenzaprine Hcl 10 Mg Tablet 1 Tab PO BID Atorvastatin Calcium 40 Mg Tablet 1 Tab PO QHS Amlodipine Besylate 10 Mg Tablet 0.5 Tab PO HS Losartan-Hctz 100-25 Mg Tab (Losartan/Hydrochlorothiazide) 1 Each Tablet 1 Tab PO DAILY Duloxetine Hcl 60 Mg Capsule.dr 60 Mg PO DAILY Aspirin 81 Mg Tab.chew 1 Tab PO BID Labetalol Hcl 100 Mg Tablet 1 Tab PO BID Vitals/I & O Vital Sign - Last 24 Hours 08/31/18 08/31/18 08/31/18 08/31/18 11:00 12:00 14:56 16:49 Temp 98.5 98.0 98.5 98.0 Pulse 72 83 Resp 18 18 B/P (MAP) 146/50 (82) 157/51 (86) Pulse Ox 94 95 96 O2 Delivery Room Air Room Air Room Air Room Air 08/31/18 08/31/18 08/31/18 08/31/18 19:30 20:00 20:02 21:05 Temp 98.0 98.0 Pulse 87 87 Resp 23 B/P (MAP) 181/57 (98) 181/57 Pulse Ox 96 O2 Delivery Room Air Room Air Room Air 08/31/18 09/01/18 09/01/18 09/01/18 23:45 03:58 07:00 07:54 Temp 98.4 98.1 98.4 98.4 98.1 98.4 Pulse 81 94 72 Resp 20 16 16 B/P (MAP) 181/65 (103) 151/56 (87) 160/70 (100) Pulse Ox 94 93 93 93 O2 Delivery Room Air Room Air Room Air Room Air 09/01/18 09/01/18 09/01/18 08:00 09:37 09:38 Pulse 72 72 B/P (MAP) 160/70 160/70 O2 Delivery Room Air O2 Flow Rate 2.0 Intake and Output 08/31/18 08/31/18 09/01/18 14:59 22:59 06:59 Intake Total 840 ml 640 ml 1000 ml Balance 840 ml 640 ml 1000 ml AGUS EDWARD MD September 01, 2018 10:24
--- NOTE | 2018-09-01 10:59 | NUR ---
RUSSEL following pt. PT/OT recommends Home health. RUSSEL will arrange HH if ordered by Physician. SHELBY NGUYEN.
[2018-09-01 11:00] VITALS: BP 162/65
--- NOTE | 2018-09-01 11:02 | PDOC ---
Renal-Progress Notes Subjective Notes Notes NONE History of Present Illness Hx of present illness NO CHANGE Vitals Vitals Vital Signs Date Time Temp Pulse Resp B/P (MAP) Pulse Ox O2 Delivery O2 Flow Rate FiO2 09/01/18 09:38 72 160/70 09/01/18 08:00 Room Air 2.0 09/01/18 07:54 93 09/01/18 07:00 98.4 16 98.4 Weight Weight [ ] I.O. Intake and Output Intake and Output 09/01/18 06:59 Intake Total 2480 ml Balance 2480 ml Intake Oral 2480 ml # Voids 5 # Bowel Movements 1 Labs Labs Laboratory Tests Test 08/31/18 11:55 08/31/18 17:01 08/31/18 20:58 09/01/18 03:49 Glucose (Fingerstick) 154 mg/dL (70-99) 297 mg/dL (70-99) 321 mg/dL (70-99) White Blood Count 6.7 x10^3/uL (4.0-11.0) Red Blood Count 3.35 x10^6/uL (3.50-5.40) Hemoglobin 10.7 g/dL (12.0-15.5) Hematocrit 32.5 % (36.0-47.0) Mean Corpuscular Volume 97 fL (79-100) Mean Corpuscular Hemoglobin 32 pg (25-35) Mean Corpuscular Hemoglobin Concent 33 g/dL (31-37) Red Cell Distribution Width 15.0 % (11.5-14.5) Platelet Count 265 x10^3/uL (140-400) Neutrophils (%) (Auto) 53 % (31-73) Lymphocytes (%) (Auto) 35 % (24-48) Monocytes (%) (Auto) 9 % (0-9) Eosinophils (%) (Auto) 3 % (0-3) Basophils (%) (Auto) 1 % (0-3) Neutrophils # (Auto) 3.5 x10^3uL (1.8-7.7) Lymphocytes # (Auto) 2.3 x10^3/uL (1.0-4.8) Monocytes # (Auto) 0.6 x10^3/uL (0.0-1.1) Eosinophils # (Auto) 0.2 x10^3/uL (0.0-0.7) Basophils # (Auto) 0.0 x10^3/uL (0.0-0.2) Sodium Level 142 mmol/L (136-145) Potassium Level 4.5 mmol/L (3.5-5.1) Chloride Level 106 mmol/L (98-107) Carbon Dioxide Level 27 mmol/L (21-32) Anion Gap 9 (6-14) Blood Urea Nitrogen 25 mg/dL (7-20) Creatinine 1.3 mg/dL (0.6-1.0) Estimated GFR (Cockcroft-Gault) 40.0 BUN/Creatinine Ratio 19 (6-20) Glucose Level 204 mg/dL (70-99) Calcium Level 9.4 mg/dL (8.5-10.1) Total Bilirubin 0.3 mg/dL (0.2-1.0) Aspartate Amino Transf (AST/SGOT) 32 U/L (15-37) Alanine Aminotransferase (ALT/SGPT) 49 U/L (14-59) Alkaline Phosphatase 62 U/L (46-116) Creatine Kinase 385 U/L (26-192) Total Protein 6.5 g/dL (6.4-8.2) Albumin 2.7 g/dL (3.4-5.0) Albumin/Globulin Ratio 0.7 (1.0-1.7) Test 09/01/18 07:11 Glucose (Fingerstick) 124 mg/dL (70-99) Micro Micro Microbiology 08/29/18 Urine Culture - Final, Complete 08/29/18 Urine Culture Result 1 (SABINO) - Final, Complete Review of Systems Constitutional: yes: alert, oriented Ears/Nose/Throat: Yes: no symptom reported Eyes: Yes: no symptom reported Pulmonary: Yes no symptom reported Cardiovascular: Yes no symptom reported Gastrointestional: Yes: no symptom reported Genitourinary: Yes: no symptom reported Musculoskeletal: Yes: no symptom reported Skin: Yes no symptom reported Psychiatric/Neurological: Yes: no symptom reported Endocrine: Yes: no symptom reported Physical Exam General Appearance: no apparent distress Skin: warm Respiratory: bilateral CTA Heart: S1S2 Abdomen: soft, bowel sounds present Genitourinary: bladder flat Extremities: pulses present Neurology: alert Assessment Assessment IMP CKD STAGE 3 WITH CR OF 1.3 URINARY TRACT INFECTION DECONDITIONING SPINAL STENOSIS SYNCOPE INCREASED CPK-IMPROVED DM II WITH HYPOGLYCEMIA HYPOKALEMIA-CORRECTED ENCEPHALOPATHY PLAN ANTIBIOTICS HYDRATION THERAPY LABS IN AM EVA MCKAY MD September 01, 2018 11:02
--- NOTE | 2018-09-01 11:21 | PDOC ---
PROGRESS NOTES Chief Complaint Chief Complaint 1.syncope and lower extremity weakness 2. Acute renal failure 3. rhabodomyolysis, 4. Diabetes mellitus type 2. 5. Accel Hypertension, hypertensive cardiovascular disease. diastolic CHF 6. Hyperlipidemia. 7. UTI 8. back pain with spinal stenosis and spondylolisthesis and DJD 9. hypokalemia History of Present Illness History of Present Illness She has no complaints CPK down to 355 from 1300 on admission-on fluids running at 75 mL an hour MRI of the brain pending Blood pressure on the high side-echo was just done Doubtful of CVA but need to r/o acute CVA, hence neurology has ordered the MRI ESR 109 Plan: follow up echo Follow up MRI brain Clonidine when necessary for the blood pressure Continue IV fluid at 75 mL-recheck CPK tomorrow Await PT OT Discussed with physiatry-started on some gout medication regarding that left dorsal foot swelling redness and pain - uric acid mildly elevated Vitals Vitals Vital Signs Date Time Temp Pulse Resp B/P (MAP) Pulse Ox O2 Delivery O2 Flow Rate FiO2 09/01/18 11:00 98.0 77 18 162/65 (97) 93 Room Air 98.0 09/01/18 08:00 2.0 Physical Exam General: Alert, Cooperative, No acute distress Heart: Regular rate, Normal S1, Normal S2 Lungs: Clear Abdomen: Normal bowel sounds, Soft Extremities: No edema, Other Skin: No rashes, No breakdown Labs LABS Laboratory Tests Test 08/31/18 11:55 08/31/18 17:01 08/31/18 20:58 09/01/18 03:49 Glucose (Fingerstick) 154 mg/dL (70-99) 297 mg/dL (70-99) 321 mg/dL (70-99) White Blood Count 6.7 x10^3/uL (4.0-11.0) Red Blood Count 3.35 x10^6/uL (3.50-5.40) Hemoglobin 10.7 g/dL (12.0-15.5) Hematocrit 32.5 % (36.0-47.0) Mean Corpuscular Volume 97 fL (79-100) Mean Corpuscular Hemoglobin 32 pg (25-35) Mean Corpuscular Hemoglobin Concent 33 g/dL (31-37) Red Cell Distribution Width 15.0 % (11.5-14.5) Platelet Count 265 x10^3/uL (140-400) Neutrophils (%) (Auto) 53 % (31-73) Lymphocytes (%) (Auto) 35 % (24-48) Monocytes (%) (Auto) 9 % (0-9) Eosinophils (%) (Auto) 3 % (0-3) Basophils (%) (Auto) 1 % (0-3) Neutrophils # (Auto) 3.5 x10^3uL (1.8-7.7) Lymphocytes # (Auto) 2.3 x10^3/uL (1.0-4.8) Monocytes # (Auto) 0.6 x10^3/uL (0.0-1.1) Eosinophils # (Auto) 0.2 x10^3/uL (0.0-0.7) Basophils # (Auto) 0.0 x10^3/uL (0.0-0.2) Sodium Level 142 mmol/L (136-145) Potassium Level 4.5 mmol/L (3.5-5.1) Chloride Level 106 mmol/L (98-107) Carbon Dioxide Level 27 mmol/L (21-32) Anion Gap 9 (6-14) Blood Urea Nitrogen 25 mg/dL (7-20) Creatinine 1.3 mg/dL (0.6-1.0) Estimated GFR (Cockcroft-Gault) 40.0 BUN/Creatinine Ratio 19 (6-20) Glucose Level 204 mg/dL (70-99) Calcium Level 9.4 mg/dL (8.5-10.1) Total Bilirubin 0.3 mg/dL (0.2-1.0) Aspartate Amino Transf (AST/SGOT) 32 U/L (15-37) Alanine Aminotransferase (ALT/SGPT) 49 U/L (14-59) Alkaline Phosphatase 62 U/L (46-116) Creatine Kinase 385 U/L (26-192) Total Protein 6.5 g/dL (6.4-8.2) Albumin 2.7 g/dL (3.4-5.0) Albumin/Globulin Ratio 0.7 (1.0-1.7) Test 09/01/18 07:11 Glucose (Fingerstick) 124 mg/dL (70-99) Review of Systems Review of Systems Left dorsal foot pain otherwise the rest of ROS 14 point negative Comment Review of Relevant I have reviewed the following items gretel (where applicable) has been applied. Labs Laboratory Tests Test 08/30/18 11:23 08/30/18 12:22 08/30/18 16:45 08/30/18 20:29 Glucose (Fingerstick) 242 mg/dL (70-99) 328 mg/dL (70-99) 315 mg/dL (70-99) Erythrocyte Sedimentation Rate 109 (0-25) Test 08/31/18 04:10 08/31/18 09:10 08/31/18 11:55 08/31/18 17:01 White Blood Count 6.1 x10^3/uL (4.0-11.0) Red Blood Count 3.34 x10^6/uL (3.50-5.40) Hemoglobin 10.7 g/dL (12.0-15.5) Hematocrit 32.3 % (36.0-47.0) Mean Corpuscular Volume 97 fL (79-100) Mean Corpuscular Hemoglobin 32 pg (25-35) Mean Corpuscular Hemoglobin Concent 33 g/dL (31-37) Red Cell Distribution Width 15.0 % (11.5-14.5) Platelet Count 254 x10^3/uL (140-400) Neutrophils (%) (Auto) 59 % (31-73) Lymphocytes (%) (Auto) 30 % (24-48) Monocytes (%) (Auto) 9 % (0-9) Eosinophils (%) (Auto) 2 % (0-3) Basophils (%) (Auto) 1 % (0-3) Neutrophils # (Auto) 3.6 x10^3uL (1.8-7.7) Lymphocytes # (Auto) 1.8 x10^3/uL (1.0-4.8) Monocytes # (Auto) 0.5 x10^3/uL (0.0-1.1) Eosinophils # (Auto) 0.1 x10^3/uL (0.0-0.7) Basophils # (Auto) 0.0 x10^3/uL (0.0-0.2) Sodium Level 140 mmol/L (136-145) Potassium Level 4.5 mmol/L (3.5-5.1) Chloride Level 104 mmol/L (98-107) Carbon Dioxide Level 29 mmol/L (21-32) Anion Gap 7 (6-14) Blood Urea Nitrogen 28 mg/dL (7-20) Creatinine 1.6 mg/dL (0.6-1.0) Estimated GFR (Cockcroft-Gault) 31.5 Glucose Level 164 mg/dL (70-99) Calcium Level 9.4 mg/dL (8.5-10.1) Phosphorus Level 2.6 mg/dL (2.6-4.7) Albumin 2.7 g/dL (3.4-5.0) Glucose (Fingerstick) 220 mg/dL (70-99) 154 mg/dL (70-99) 297 mg/dL (70-99) Test 08/31/18 20:58 09/01/18 03:49 09/01/18 07:11 Glucose (Fingerstick) 321 mg/dL (70-99) 124 mg/dL (70-99) White Blood Count 6.7 x10^3/uL (4.0-11.0) Red Blood Count 3.35 x10^6/uL (3.50-5.40) Hemoglobin 10.7 g/dL (12.0-15.5) Hematocrit 32.5 % (36.0-47.0) Mean Corpuscular Volume 97 fL (79-100) Mean Corpuscular Hemoglobin 32 pg (25-35) Mean Corpuscular Hemoglobin Concent 33 g/dL (31-37) Red Cell Distribution Width 15.0 % (11.5-14.5) Platelet Count 265 x10^3/uL (140-400) Neutrophils (%) (Auto) 53 % (31-73) Lymphocytes (%) (Auto) 35 % (24-48) Monocytes (%) (Auto) 9 % (0-9) Eosinophils (%) (Auto) 3 % (0-3) Basophils (%) (Auto) 1 % (0-3) Neutrophils # (Auto) 3.5 x10^3uL (1.8-7.7) Lymphocytes # (Auto) 2.3 x10^3/uL (1.0-4.8) Monocytes # (Auto) 0.6 x10^3/uL (0.0-1.1) Eosinophils # (Auto) 0.2 x10^3/uL (0.0-0.7) Basophils # (Auto) 0.0 x10^3/uL (0.0-0.2) Sodium Level 142 mmol/L (136-145) Potassium Level 4.5 mmol/L (3.5-5.1) Chloride Level 106 mmol/L (98-107) Carbon Dioxide Level 27 mmol/L (21-32) Anion Gap 9 (6-14) Blood Urea Nitrogen 25 mg/dL (7-20) Creatinine 1.3 mg/dL (0.6-1.0) Estimated GFR (Cockcroft-Gault) 40.0 BUN/Creatinine Ratio 19 (6-20) Glucose Level 204 mg/dL (70-99) Calcium Level 9.4 mg/dL (8.5-10.1) Total Bilirubin 0.3 mg/dL (0.2-1.0) Aspartate Amino Transf (AST/SGOT) 32 U/L (15-37) Alanine Aminotransferase (ALT/SGPT) 49 U/L (14-59) Alkaline Phosphatase 62 U/L (46-116) Creatine Kinase 385 U/L (26-192) Total Protein 6.5 g/dL (6.4-8.2) Albumin 2.7 g/dL (3.4-5.0) Albumin/Globulin Ratio 0.7 (1.0-1.7) Laboratory Tests Test 08/31/18 11:55 08/31/18 17:01 08/31/18 20:58 09/01/18 03:49 Glucose (Fingerstick) 154 mg/dL (70-99) 297 mg/dL (70-99) 321 mg/dL (70-99) White Blood Count 6.7 x10^3/uL (4.0-11.0) Red Blood Count 3.35 x10^6/uL (3.50-5.40) Hemoglobin 10.7 g/dL (12.0-15.5) Hematocrit 32.5 % (36.0-47.0) Mean Corpuscular Volume 97 fL (79-100) Mean Corpuscular Hemoglobin 32 pg (25-35) Mean Corpuscular Hemoglobin Concent 33 g/dL (31-37) Red Cell Distribution Width 15.0 % (11.5-14.5) Platelet Count 265 x10^3/uL (140-400) Neutrophils (%) (Auto) 53 % (31-73) Lymphocytes (%) (Auto) 35 % (24-48) Monocytes (%) (Auto) 9 % (0-9) Eosinophils (%) (Auto) 3 % (0-3) Basophils (%) (Auto) 1 % (0-3) Neutrophils # (Auto) 3.5 x10^3uL (1.8-7.7) Lymphocytes # (Auto) 2.3 x10^3/uL (1.0-4.8) Monocytes # (Auto) 0.6 x10^3/uL (0.0-1.1) Eosinophils # (Auto) 0.2 x10^3/uL (0.0-0.7) Basophils # (Auto) 0.0 x10^3/uL (0.0-0.2) Sodium Level 142 mmol/L (136-145) Potassium Level 4.5 mmol/L (3.5-5.1) Chloride Level 106 mmol/L (98-107) Carbon Dioxide Level 27 mmol/L (21-32) Anion Gap 9 (6-14) Blood Urea Nitrogen 25 mg/dL (7-20) Creatinine 1.3 mg/dL (0.6-1.0) Estimated GFR (Cockcroft-Gault) 40.0 BUN/Creatinine Ratio 19 (6-20) Glucose Level 204 mg/dL (70-99) Calcium Level 9.4 mg/dL (8.5-10.1) Total Bilirubin 0.3 mg/dL (0.2-1.0) Aspartate Amino Transf (AST/SGOT) 32 U/L (15-37) Alanine Aminotransferase (ALT/SGPT) 49 U/L (14-59) Alkaline Phosphatase 62 U/L (46-116) Creatine Kinase 385 U/L (26-192) Total Protein 6.5 g/dL (6.4-8.2) Albumin 2.7 g/dL (3.4-5.0) Albumin/Globulin Ratio 0.7 (1.0-1.7) Test 09/01/18 07:11 Glucose (Fingerstick) 124 mg/dL (70-99) Microbiology 08/29/18 Urine Culture - Final, Complete 08/29/18 Urine Culture Result 1 (SABINO) - Final, Complete Medications Current Medications Albuterol/ Ipratropium (Duoneb) 3 ml 1X ONCE NEB Last administered on 08/29/18at 19:42; Start 08/29/18 at 19:15; Stop 08/29/18 at 19:16; Status DC Sodium Chloride 1,000 ml @ 1,000 mls/hr 1X ONCE IV Last administered on 08/29/18at 19:44; Start 08/29/18 at 19:15; Stop 08/29/18 at 20:14; Status DC Sodium Chloride 1,000 ml @ 1,000 mls/hr 1X ONCE IV Last administered on 08/29/18at 21:44; Start 08/29/18 at 20:15; Stop 08/29/18 at 21:14; Status DC Levofloxacin/ Dextrose (Levaquin Per Pharmacy) 1 each PRN DAILY PRN MC SEE COMMENTS; Start 08/29/18 at 20:30 Sodium Chloride 1,000 ml @ 75 mls/hr [id number] IV Last administered on 08/29/18at 22:52; Start 08/29/18 at 20:29; Stop 08/30/18 at 20:28; Status DC Albuterol/ Ipratropium (Duoneb) 3 ml RTQID NEB ; Start 08/30/18 at 21:00; Stop 08/30/18 at 21:00; Status DC Levofloxacin/ Dextrose 50 ml @ 100 mls/hr Q24H IV Last administered on 08/31/18at 21:05; Start 08/29/18 at 21:00 Albuterol/ Ipratropium (Duoneb) 3 ml RTQID NEB Last administered on 09/01/18at 07:53; Start 08/30/18 at 08:15 Levofloxacin/ Dextrose 50 ml @ 50 mls/hr Q24H IV ; Start 08/30/18 at 08:30; Status UNV Potassium Chloride (Klor-Con) 40 meq 1X ONCE PO Last administered on 08/30/18at 10:59; Start 08/30/18 at 10:15; Stop 08/30/18 at 10:16; Status DC Potassium Chloride (Klor-Con) 20 meq [id number] PO Last administered on 5/6/19at 09:37; Start 08/31/18 at 08:00 Amlodipine Besylate (Norvasc) 5 mg DAILY PO Last administered on 08/31/18 09:08; Start 08/30/18 at 11:00; Stop 09/01/18 at 08:32; Status DC Aspirin (Children'S Aspirin) 81 mg BID PO Last administered on 09/01/18 09:38; Start 08/30/18 at 11:00 Folic Acid (Folic Acid) 1 mg BID PO Last administered on 09/01/18 09:38; Start 08/30/18 at 11:00 Acetaminophen/ Hydrocodone Bitart (Lortab 5/325) 1 tab PRN Q6HRS PRN PO MODERATE PAIN; Start 08/30/18 at 10:30 Nortriptyline HCl (Pamelor) 25 mg DAILY PO Last administered on 09/01/18 09:37; Start 08/30/18 at 11:00 Non-Formulary Medication (Albuterol Sulfate (Proair Respiclick)) 1 puff Q4HRS INH ; Start 08/30/18 at 12:00; Status UNV Duloxetine HCl (Cymbalta) 60 mg DAILY PO Last administered on 09/01/18 09:37; Start 08/30/18 at 11:00 Non-Formulary Medication (Icosapent Ethyl (Vascepa)) 1 gm BID PO ; Start 08/30/18 at 21:00; Stop 08/31/18 at 17:21; Status DC Insulin Glargine (Lantus) 40 units QHS SQ Last administered on 08/31/18at 21:12; Start 08/30/18 at 21:00 Labetalol HCl (Trandate) 100 mg BID PO Last administered on 09/01/18 09:37; Start 08/30/18 at 11:00 Prednisone (Prednisone) 10 mg DAILY PO Last administered on 09/01/18 09:37; Start 08/30/18 at 10:45 Pantoprazole Sodium (Protonix) 40 mg DAILYAC PO Last administered on 09/01/18 09:37; Start 08/30/18 at 11:30 Albuterol Sulfate (Ventolin Neb Soln) 2.5 mg Q4HRS@0000,0400 NEB ; Start 08/31/18 at 00:00; Stop 08/31/18 at 23:18; Status DC Polysaccharide Iron Complex (Niferex 150) 150 mg BID PO Last administered on 09/01/18at 09:37; Start 08/30/18 at 11:00 Insulin Human Lispro (HumaLOG) 0-5 UNITS TIDWMEALS SQ Last administered on 08/31/18at 17:23; Start 08/30/18 at 12:00; Stop 09/01/18 at 08:32; Status DC Dextrose (Dextrose 50%-Water Syringe) 12.5 gm PRN Q15MIN PRN IV SEE COMMENTS; Start 08/30/18 at 11:45 Sodium Chloride 1,000 ml @ 75 mls/hr [id number] IV Last administered on 08/31/18at 13:59; Start 08/31/18 at 13:00 Lactobacillus Rhamnosus (Culturelle) 1 cap BID PO Last administered on 08/31/18at 21:05; Start 08/31/18 at 21:00 Fish Oil (Fish Oil) 1,000 mg BID PO Last administered on 09/01/18at 09:37; Start 08/31/18 at 21:00 Albuterol Sulfate (Ventolin Neb Soln) 2.5 mg Q4HRS NEB ; Start 09/01/18 at 00:00; Stop 09/01/18 at 00:00; Status DC Albuterol Sulfate (Ventolin Neb Soln) 2.5 mg PRN Q4HRS PRN NEB SHORTNESS OF BREATH; Start 09/01/18 at 00:00 Amlodipine Besylate (Norvasc) 10 mg DAILY PO Last administered on 09/01/18at 09:38; Start 09/01/18 at 09:00 Insulin Human Lispro (HumaLOG) 0-9 UNITS TIDWMEALS SQ ; Start 09/01/18 at 09:00 Dextrose (Dextrose 50%-Water Syringe) 12.5 gm PRN Q15MIN PRN IV SEE COMMENTS; Start 09/01/18 at 08:30; Status UNV Clonidine HCl (Catapres) 0.1 mg PRN Q1HR PRN PO HYPERTENSION, SEE COMMENTS; Start 09/01/18 at 08:45 Active Scripts Active [place] 5-325 Tablet (Acetaminophen/Hydrocodone Bitart) 1 Each Tablet 1 Tab PO PRN Q6HRS PRN Reported Vascepa (Icosapent Ethyl) 1 Gm Capsule 1 Gm PO BID Proair Respiclick (Albuterol Sulfate) 90 Mcg Aer.pow.ba 1 Puff INH Q4HRS Nortriptyline Hcl 25 Mg Capsule 25 Mg PO DAILY Levemir (Insulin Detemir) 100 Unit/1 Ml Vial 40 Unit SQ HS Folic Acid 1 Mg Tablet 1 Tab PO BID Metformin Hcl 500 Mg Tablet 1 Tab PO BID Novolog Flexpen (Insulin Aspart) 100 Unit/1 Ml Insuln.pen 15 Unit SQ TIDAC Cyclobenzaprine Hcl 10 Mg Tablet 1 Tab PO BID Atorvastatin Calcium 40 Mg Tablet 1 Tab PO QHS Amlodipine Besylate 10 Mg Tablet 0.5 Tab PO HS Losartan-Hctz 100-25 Mg Tab (Losartan/Hydrochlorothiazide) 1 Each Tablet 1 Tab PO DAILY Duloxetine Hcl 60 Mg Capsule.dr 60 Mg PO DAILY Aspirin 81 Mg Tab.chew 1 Tab PO BID Labetalol Hcl 100 Mg Tablet 1 Tab PO BID Vitals/I & O Vital Sign - Last 24 Hours 08/31/18 08/31/18 08/31/18 08/31/18 12:00 14:56 16:49 19:30 Temp 98.0 98.0 98.0 98.0 Pulse 83 87 Resp 18 23 B/P (MAP) 157/51 (86) 181/57 (98) Pulse Ox 95 96 96 O2 Delivery Room Air Room Air Room Air Room Air 08/31/18 08/31/18 08/31/18 08/31/18 20:00 20:02 21:05 23:45 Temp 98.4 98.4 Pulse 87 81 Resp 20 B/P (MAP) 181/57 181/65 (103) Pulse Ox 94 O2 Delivery Room Air Room Air Room Air 09/01/18 09/01/18 09/01/18 09/01/18 03:58 07:00 07:54 08:00 Temp 98.1 98.4 98.1 98.4 Pulse 94 72 Resp 16 16 B/P (MAP) 151/56 (87) 160/70 (100) Pulse Ox 93 93 93 O2 Delivery Room Air Room Air Room Air Room Air O2 Flow Rate 2.0 09/01/18 09/01/18 09/01/18 09:37 09:38 11:00 Temp 98.0 98.0 Pulse 72 72 77 Resp 18 B/P (MAP) 160/70 160/70 162/65 (97) Pulse Ox 93 O2 Delivery Room Air Intake and Output 08/31/18 08/31/18 09/01/18 15:00 23:00 07:00 Intake Total 840 ml 640 ml 1000 ml Balance 840 ml 640 ml 1000 ml JAKI AGUILERA MD September 01, 2018 11:21
--- NOTE | 2018-09-01 14:46 | PDOC ---
PROGRESS NOTES Assessment Assessment * Fall, prolonged time on the floor, with rhabdomyolysis, which is improving * No stroke. * Diabetic peripheral neuropathy. * Chronic low back pain, doubt acute radiculopathy but will keep that in mind as well. Back pain better today, was worse after MRI Plan * Okay to resume statin * Dr. Akhtar has started prednisone * Hold on MRI of the lumbar spine * Rehabilitation modalities. * Follow CPK * Follow ESR, recheck in 2 weeks Subjective feels better Objective Vital Signs Date Time Temp Pulse Resp B/P (MAP) Pulse Ox O2 Delivery O2 Flow Rate FiO2 09/01/18 11:26 94 Room Air 09/01/18 11:00 98.0 77 18 162/65 (97) 98.0 09/01/18 08:00 2.0 Intake and Output 09/01/18 06:59 Intake Total 2480 ml Balance 2480 ml Intake Oral 2480 ml # Voids 5 # Bowel Movements 1 PHYSICAL EXAM Alert. Oriented to time, place and person. PERRL. EOMI. CN: no focal findings. Muscle tone: normal. Muscle strength: 4/5 DTR: 1+ Plantar reflex: flexor Gait: not examined in bed. Sensory exam: stocking loss, worse in left leg. No cerebellar signs elicited. No temporal artery tenderness Review of Relevant I have reviewed the following items gretel (where applicable) has been applied. Labs Laboratory Tests Test 08/30/18 16:45 08/30/18 20:29 08/31/18 04:10 08/31/18 09:10 Glucose (Fingerstick) 328 mg/dL (70-99) 315 mg/dL (70-99) 220 mg/dL (70-99) White Blood Count 6.1 x10^3/uL (4.0-11.0) Red Blood Count 3.34 x10^6/uL (3.50-5.40) Hemoglobin 10.7 g/dL (12.0-15.5) Hematocrit 32.3 % (36.0-47.0) Mean Corpuscular Volume 97 fL (79-100) Mean Corpuscular Hemoglobin 32 pg (25-35) Mean Corpuscular Hemoglobin Concent 33 g/dL (31-37) Red Cell Distribution Width 15.0 % (11.5-14.5) Platelet Count 254 x10^3/uL (140-400) Neutrophils (%) (Auto) 59 % (31-73) Lymphocytes (%) (Auto) 30 % (24-48) Monocytes (%) (Auto) 9 % (0-9) Eosinophils (%) (Auto) 2 % (0-3) Basophils (%) (Auto) 1 % (0-3) Neutrophils # (Auto) 3.6 x10^3uL (1.8-7.7) Lymphocytes # (Auto) 1.8 x10^3/uL (1.0-4.8) Monocytes # (Auto) 0.5 x10^3/uL (0.0-1.1) Eosinophils # (Auto) 0.1 x10^3/uL (0.0-0.7) Basophils # (Auto) 0.0 x10^3/uL (0.0-0.2) Sodium Level 140 mmol/L (136-145) Potassium Level 4.5 mmol/L (3.5-5.1) Chloride Level 104 mmol/L (98-107) Carbon Dioxide Level 29 mmol/L (21-32) Anion Gap 7 (6-14) Blood Urea Nitrogen 28 mg/dL (7-20) Creatinine 1.6 mg/dL (0.6-1.0) Estimated GFR (Cockcroft-Gault) 31.5 Glucose Level 164 mg/dL (70-99) Calcium Level 9.4 mg/dL (8.5-10.1) Phosphorus Level 2.6 mg/dL (2.6-4.7) Albumin 2.7 g/dL (3.4-5.0) Test 08/31/18 11:55 08/31/18 17:01 08/31/18 20:58 09/01/18 03:49 Glucose (Fingerstick) 154 mg/dL (70-99) 297 mg/dL (70-99) 321 mg/dL (70-99) White Blood Count 6.7 x10^3/uL (4.0-11.0) Red Blood Count 3.35 x10^6/uL (3.50-5.40) Hemoglobin 10.7 g/dL (12.0-15.5) Hematocrit 32.5 % (36.0-47.0) Mean Corpuscular Volume 97 fL (79-100) Mean Corpuscular Hemoglobin 32 pg (25-35) Mean Corpuscular Hemoglobin Concent 33 g/dL (31-37) Red Cell Distribution Width 15.0 % (11.5-14.5) Platelet Count 265 x10^3/uL (140-400) Neutrophils (%) (Auto) 53 % (31-73) Lymphocytes (%) (Auto) 35 % (24-48) Monocytes (%) (Auto) 9 % (0-9) Eosinophils (%) (Auto) 3 % (0-3) Basophils (%) (Auto) 1 % (0-3) Neutrophils # (Auto) 3.5 x10^3uL (1.8-7.7) Lymphocytes # (Auto) 2.3 x10^3/uL (1.0-4.8) Monocytes # (Auto) 0.6 x10^3/uL (0.0-1.1) Eosinophils # (Auto) 0.2 x10^3/uL (0.0-0.7) Basophils # (Auto) 0.0 x10^3/uL (0.0-0.2) Sodium Level 142 mmol/L (136-145) Potassium Level 4.5 mmol/L (3.5-5.1) Chloride Level 106 mmol/L (98-107) Carbon Dioxide Level 27 mmol/L (21-32) Anion Gap 9 (6-14) Blood Urea Nitrogen 25 mg/dL (7-20) Creatinine 1.3 mg/dL (0.6-1.0) Estimated GFR (Cockcroft-Gault) 40.0 BUN/Creatinine Ratio 19 (6-20) Glucose Level 204 mg/dL (70-99) Calcium Level 9.4 mg/dL (8.5-10.1) Total Bilirubin 0.3 mg/dL (0.2-1.0) Aspartate Amino Transf (AST/SGOT) 32 U/L (15-37) Alanine Aminotransferase (ALT/SGPT) 49 U/L (14-59) Alkaline Phosphatase 62 U/L (46-116) Creatine Kinase 385 U/L (26-192) Total Protein 6.5 g/dL (6.4-8.2) Albumin 2.7 g/dL (3.4-5.0) Albumin/Globulin Ratio 0.7 (1.0-1.7) Test 09/01/18 07:11 09/01/18 11:30 Glucose (Fingerstick) 124 mg/dL (70-99) 153 mg/dL (70-99) Laboratory Tests Test 08/31/18 17:01 08/31/18 20:58 09/01/18 03:49 09/01/18 07:11 Glucose (Fingerstick) 297 mg/dL (70-99) 321 mg/dL (70-99) 124 mg/dL (70-99) White Blood Count 6.7 x10^3/uL (4.0-11.0) Red Blood Count 3.35 x10^6/uL (3.50-5.40) Hemoglobin 10.7 g/dL (12.0-15.5) Hematocrit 32.5 % (36.0-47.0) Mean Corpuscular Volume 97 fL (79-100) Mean Corpuscular Hemoglobin 32 pg (25-35) Mean Corpuscular Hemoglobin Concent 33 g/dL (31-37) Red Cell Distribution Width 15.0 % (11.5-14.5) Platelet Count 265 x10^3/uL (140-400) Neutrophils (%) (Auto) 53 % (31-73) Lymphocytes (%) (Auto) 35 % (24-48) Monocytes (%) (Auto) 9 % (0-9) Eosinophils (%) (Auto) 3 % (0-3) Basophils (%) (Auto) 1 % (0-3) Neutrophils # (Auto) 3.5 x10^3uL (1.8-7.7) Lymphocytes # (Auto) 2.3 x10^3/uL (1.0-4.8) Monocytes # (Auto) 0.6 x10^3/uL (0.0-1.1) Eosinophils # (Auto) 0.2 x10^3/uL (0.0-0.7) Basophils # (Auto) 0.0 x10^3/uL (0.0-0.2) Sodium Level 142 mmol/L (136-145) Potassium Level 4.5 mmol/L (3.5-5.1) Chloride Level 106 mmol/L (98-107) Carbon Dioxide Level 27 mmol/L (21-32) Anion Gap 9 (6-14) Blood Urea Nitrogen 25 mg/dL (7-20) Creatinine 1.3 mg/dL (0.6-1.0) Estimated GFR (Cockcroft-Gault) 40.0 BUN/Creatinine Ratio 19 (6-20) Glucose Level 204 mg/dL (70-99) Calcium Level 9.4 mg/dL (8.5-10.1) Total Bilirubin 0.3 mg/dL (0.2-1.0) Aspartate Amino Transf (AST/SGOT) 32 U/L (15-37) Alanine Aminotransferase (ALT/SGPT) 49 U/L (14-59) Alkaline Phosphatase 62 U/L (46-116) Creatine Kinase 385 U/L (26-192) Total Protein 6.5 g/dL (6.4-8.2) Albumin 2.7 g/dL (3.4-5.0) Albumin/Globulin Ratio 0.7 (1.0-1.7) Test 09/01/18 11:30 Glucose (Fingerstick) 153 mg/dL (70-99) Microbiology 08/29/18 Urine Culture - Final, Complete 08/29/18 Urine Culture Result 1 (SABINO) - Final, Complete Medications Current Medications Albuterol/ Ipratropium (Duoneb) 3 ml 1X ONCE NEB Last administered on 08/29/18at 19:42; Start 08/29/18 at 19:15; Stop 08/29/18 at 19:16; Status DC Sodium Chloride 1,000 ml @ 1,000 mls/hr 1X ONCE IV Last administered on 08/29/18at 19:44; Start 08/29/18 at 19:15; Stop 08/29/18 at 20:14; Status DC Sodium Chloride 1,000 ml @ 1,000 mls/hr 1X ONCE IV Last administered on 08/29/18at 21:44; Start 08/29/18 at 20:15; Stop 08/29/18 at 21:14; Status DC Levofloxacin/ Dextrose (Levaquin Per Pharmacy) 1 each PRN DAILY PRN MC SEE COMMENTS; Start 08/29/18 at 20:30; Stop 09/01/18 at 14:09; Status DC Sodium Chloride 1,000 ml @ 75 mls/hr [id number] IV Last administered on 5/3/19at 22:52; Start 08/29/18 at 20:29; Stop 08/30/18 at 20:28; Status DC Albuterol/ Ipratropium (Duoneb) 3 ml RTQID NEB ; Start 08/30/18 at 21:00; Stop 08/30/18 at 21:00; Status DC Levofloxacin/ Dextrose 50 ml @ 100 mls/hr Q24H IV Last administered on 08/31/18at 21:05; Start 08/29/18 at 21:00 Albuterol/ Ipratropium (Duoneb) 3 ml RTQID NEB Last administered on 09/01/18 11:26; Start 08/30/18 at 08:15 Levofloxacin/ Dextrose 50 ml @ 50 mls/hr Q24H IV ; Start 08/30/18 at 08:30; Status UNV Potassium Chloride (Klor-Con) 40 meq 1X ONCE PO Last administered on 08/30/18 10:59; Start 08/30/18 at 10:15; Stop 08/30/18 at 10:16; Status DC Potassium Chloride (Klor-Con) 20 meq DAILYWBKFT PO Last administered on 09/01/18 09:37; Start 08/31/18 at 08:00 Amlodipine Besylate (Norvasc) 5 mg DAILY PO Last administered on 08/31/18 09:08; Start 08/30/18 at 11:00; Stop 09/01/18 at 08:32; Status DC Aspirin (Children'S Aspirin) 81 mg BID PO Last administered on 09/01/18 09:38; Start 08/30/18 at 11:00 Folic Acid (Folic Acid) 1 mg BID PO Last administered on 09/01/18 09:38; Start 08/30/18 at 11:00 Acetaminophen/ Hydrocodone Bitart (Lortab 5/325) 1 tab PRN Q6HRS PRN PO MODERATE PAIN; Start 08/30/18 at 10:30 Nortriptyline HCl (Pamelor) 25 mg DAILY PO Last administered on 09/01/18 09:37; Start 08/30/18 at 11:00 Non-Formulary Medication (Albuterol Sulfate (Proair Respiclick)) 1 puff Q4HRS INH ; Start 08/30/18 at 12:00; Status UNV Duloxetine HCl (Cymbalta) 60 mg DAILY PO Last administered on 09/01/18 09:37; Start 08/30/18 at 11:00 Non-Formulary Medication (Icosapent Ethyl (Vascepa)) 1 gm BID PO ; Start 08/30/18 at 21:00; Stop 08/31/18 at 17:21; Status DC Insulin Glargine (Lantus) 40 units QHS SQ Last administered on 08/31/18 21:12; Start 08/30/18 at 21:00 Labetalol HCl (Trandate) 100 mg BID PO Last administered on 09/01/18 09:37; Start 08/30/18 at 11:00 Prednisone (Prednisone) 10 mg DAILY PO Last administered on 09/01/18 09:37; Start 08/30/18 at 10:45 Pantoprazole Sodium (Protonix) 40 mg DAILYAC PO Last administered on 09/01/18 09:37; Start 08/30/18 at 11:30 Albuterol Sulfate (Ventolin Neb Soln) 2.5 mg Q4HRS@0000,0400 NEB ; Start 08/31/18 at 00:00; Stop 08/31/18 at 23:18; Status DC Polysaccharide Iron Complex (Niferex 150) 150 mg BID PO Last administered on 09/01/18 09:37; Start 08/30/18 at 11:00 Insulin Human Lispro (HumaLOG) 0-5 UNITS TIDWMEALS SQ Last administered on 08/31/18 17:23; Start 08/30/18 at 12:00; Stop 09/01/18 at 08:32; Status DC Dextrose (Dextrose 50%-Water Syringe) 12.5 gm PRN Q15MIN PRN IV SEE COMMENTS; Start 08/30/18 at 11:45 Sodium Chloride 1,000 ml @ 75 mls/hr [id number] IV Last administered on 08/31/18 13:59; Start 08/31/18 at 13:00 Lactobacillus Rhamnosus (Culturelle) 1 cap BID PO Last administered on 08/31/18 21:05; Start 08/31/18 at 21:00 Fish Oil (Fish Oil) 1,000 mg BID PO Last administered on 5/6/19at 09:37; Start 08/31/18 at 21:00 Albuterol Sulfate (Ventolin Neb Soln) 2.5 mg Q4HRS NEB ; Start 09/01/18 at 00:00; Stop 09/01/18 at 00:00; Status DC Albuterol Sulfate (Ventolin Neb Soln) 2.5 mg PRN Q4HRS PRN NEB SHORTNESS OF BREATH; Start 09/01/18 at 00:00 Amlodipine Besylate (Norvasc) 10 mg DAILY PO Last administered on 09/01/18at 09:38; Start 09/01/18 at 09:00 Insulin Human Lispro (HumaLOG) 0-9 UNITS TIDWMEALS SQ Last administered on 09/01/18at 12:23; Start 09/01/18 at 09:00 Dextrose (Dextrose 50%-Water Syringe) 12.5 gm PRN Q15MIN PRN IV SEE COMMENTS; Start 09/01/18 at 08:30; Status UNV Clonidine HCl (Catapres) 0.1 mg PRN Q1HR PRN PO HYPERTENSION, SEE COMMENTS; Start 09/01/18 at 08:45 Active Scripts Active Magnolia 5-325 Tablet (Acetaminophen/Hydrocodone Bitart) 1 Each Tablet 1 Tab PO PRN Q6HRS PRN Reported Vascepa (Icosapent Ethyl) 1 Gm Capsule 1 Gm PO BID Proair Respiclick (Albuterol Sulfate) 90 Mcg Aer.pow.ba 1 Puff INH Q4HRS Nortriptyline Hcl 25 Mg Capsule 25 Mg PO DAILY Levemir (Insulin Detemir) 100 Unit/1 Ml Vial 40 Unit SQ HS Folic Acid 1 Mg Tablet 1 Tab PO BID Metformin Hcl 500 Mg Tablet 1 Tab PO BID Novolog Flexpen (Insulin Aspart) 100 Unit/1 Ml Insuln.pen 15 Unit SQ TIDAC Cyclobenzaprine Hcl 10 Mg Tablet 1 Tab PO BID Atorvastatin Calcium 40 Mg Tablet 1 Tab PO QHS Amlodipine Besylate 10 Mg Tablet 0.5 Tab PO HS Losartan-Hctz 100-25 Mg Tab (Losartan/Hydrochlorothiazide) 1 Each Tablet 1 Tab PO DAILY Duloxetine Hcl 60 Mg Capsule.dr 60 Mg PO DAILY Aspirin 81 Mg Tab.chew 1 Tab PO BID Labetalol Hcl 100 Mg Tablet 1 Tab PO BID Vitals/I & O Vital Sign - Last 24 Hours 08/31/18 08/31/18 08/31/18 08/31/18 14:56 16:49 19:30 20:00 Temp 98.0 98.0 98.0 98.0 Pulse 83 87 Resp 18 23 B/P (MAP) 157/51 (86) 181/57 (98) Pulse Ox 95 96 96 O2 Delivery Room Air Room Air Room Air Room Air 08/31/18 08/31/18 08/31/18 09/01/18 20:02 21:05 23:45 03:58 Temp 98.4 98.1 98.4 98.1 Pulse 87 81 94 Resp 20 16 B/P (MAP) 181/57 181/65 (103) 151/56 (87) Pulse Ox 94 93 O2 Delivery Room Air Room Air Room Air 09/01/18 09/01/18 09/01/18 09/01/18 07:00 07:54 08:00 09:37 Temp 98.4 98.4 Pulse 72 72 Resp 16 B/P (MAP) 160/70 (100) 160/70 Pulse Ox 93 93 O2 Delivery Room Air Room Air Room Air O2 Flow Rate 2.0 09/01/18 09/01/18 09/01/18 09:38 11:00 11:26 Temp 98.0 98.0 Pulse 72 77 Resp 18 B/P (MAP) 160/70 162/65 (97) Pulse Ox 93 94 O2 Delivery Room Air Room Air Intake and Output 08/31/18 08/31/18 09/01/18 14:59 22:59 06:59 Intake Total 840 ml 640 ml 1000 ml Balance 840 ml 640 ml 1000 ml Images MRI brain: The scalp and calvarium are normal. The superior sagittal sinus demonstrates normal venous flow. The corpus callosum is normal in shape and signal intensity. The posterior fossa is unremarkable. The pituitary and sella are normal. The brainstem and craniocervical junction are unremarkable. There are T2/FLAIR signal hyperintense foci in the periventricular and subcortical white matter most suggestive of mild chronic small vessel ischemic changes. 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 Diffusion weighted images reveal no hyperintensities to suggest acute cerebral infarction. The susceptibility weighted sequences reveal no evidence of acute or chronic hemorrhage. The ventricles are normal in size and position without evidence of hydrocephalus. The paranasal sinuses are normal. The visualized portions of the mastoids are unremarkable. The orbits appear normal with exception of bilateral lens replacement. Normal flow voids are demonstrated in the carotid arteries and basilar artery. IMPRESSION: No evidence for acute or subacute ischemia. 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 There are T2/FLAIR signal hyperintense foci in the periventricular and subcortical white matter most suggestive of mild chronic small vessel ischemic changes. MIREYA CHEW MD September 01, 2018 14:46
[2018-09-01 15:00] VITALS: BP 142/61
[2018-09-01 19:24] VITALS: BP 143/56
[2018-09-01] MEDS: INSULIN GLARGINE 300 UNITS/3 ML INSULN.PEN. SQ SCH (20:02)
[2018-09-01 23:21] VITALS: BP_SYST 160; BP_SYST 165; BP_DIAS 73; BP_DIAS 87
[2018-09-02 03:31] VITALS: BP 179/74
[2018-09-02 04:17] LABS: CALCIUM 9.5 mg/dL (8.5-10.1); CREATININE 1.1 mg/dL (0.6-1.0); GFR 48.6; POTASSIUM 4.4 mmol/L (3.5-5.1)
[2018-09-02] MEDS: IV NORMAL SALINE 1000ML BAG 1,000 ML IV SCH (05:00)
[2018-09-02 07:15] VITALS: BP 166/71
[2018-09-02] MEDS: INSULIN LISPRO 300 UNITS/3 ML INSULN.PEN. SQ SCH ×2 (08:00→12:00)
[2018-09-02] MEDS: IPRATRPIUM/ALBUTEROL 0.5/2.5MG 3 ML NEBU. NEB SCH ×2 (08:11→11:48)
[2018-09-02] MEDS ORDERED: PRED-220 PO (08:36)
--- NOTE | 2018-09-02 08:36 | PDOC ---
PROGRESS NOTES Subjective Subjective She admits continued pain and edema of left foot. Objective Objective Vital Signs Date Time Temp Pulse Resp B/P (MAP) Pulse Ox O2 Delivery O2 Flow Rate FiO2 09/02/18 08:12 96 Room Air 09/02/18 07:15 98.5 84 18 166/71 (102) 98.5 09/01/18 08:00 2.0 Intake and Output 09/02/18 07:00 Intake Total 900 ml Output Total 1200 ml Balance -300 ml Intake Oral 550 ml Tube Feeding 350 ml Output Urine Total 1200 ml # Voids 7 # Bowel Movements 2 Physical Exam Physical Exam She is sitting in bed and eating her breakfast and receiving IV fluids. She continues with edema of her left foot and tenderness to palpation over left tendoachilles. She continues to be independent with her mobility. Plan Plan of Senior Living with home health follow up when medically stable. Comment Review of Relevant I have reviewed the following items gretel (where applicable) has been applied. Labs Laboratory Tests Test 08/31/18 09:10 08/31/18 11:55 08/31/18 17:01 08/31/18 20:58 Glucose (Fingerstick) 220 mg/dL (70-99) 154 mg/dL (70-99) 297 mg/dL (70-99) 321 mg/dL (70-99) Test 09/01/18 03:49 09/01/18 07:11 09/01/18 11:30 09/01/18 16:52 White Blood Count 6.7 x10^3/uL (4.0-11.0) Red Blood Count 3.35 x10^6/uL (3.50-5.40) Hemoglobin 10.7 g/dL (12.0-15.5) Hematocrit 32.5 % (36.0-47.0) Mean Corpuscular Volume 97 fL (79-100) Mean Corpuscular Hemoglobin 32 pg (25-35) Mean Corpuscular Hemoglobin Concent 33 g/dL (31-37) Red Cell Distribution Width 15.0 % (11.5-14.5) Platelet Count 265 x10^3/uL (140-400) Neutrophils (%) (Auto) 53 % (31-73) Lymphocytes (%) (Auto) 35 % (24-48) Monocytes (%) (Auto) 9 % (0-9) Eosinophils (%) (Auto) 3 % (0-3) Basophils (%) (Auto) 1 % (0-3) Neutrophils # (Auto) 3.5 x10^3uL (1.8-7.7) Lymphocytes # (Auto) 2.3 x10^3/uL (1.0-4.8) Monocytes # (Auto) 0.6 x10^3/uL (0.0-1.1) Eosinophils # (Auto) 0.2 x10^3/uL (0.0-0.7) Basophils # (Auto) 0.0 x10^3/uL (0.0-0.2) Sodium Level 142 mmol/L (136-145) Potassium Level 4.5 mmol/L (3.5-5.1) Chloride Level 106 mmol/L (98-107) Carbon Dioxide Level 27 mmol/L (21-32) Anion Gap 9 (6-14) Blood Urea Nitrogen 25 mg/dL (7-20) Creatinine 1.3 mg/dL (0.6-1.0) Estimated GFR (Cockcroft-Gault) 40.0 BUN/Creatinine Ratio 19 (6-20) Glucose Level 204 mg/dL (70-99) Calcium Level 9.4 mg/dL (8.5-10.1) Total Bilirubin 0.3 mg/dL (0.2-1.0) Aspartate Amino Transf (AST/SGOT) 32 U/L (15-37) Alanine Aminotransferase (ALT/SGPT) 49 U/L (14-59) Alkaline Phosphatase 62 U/L (46-116) Creatine Kinase 385 U/L (26-192) Total Protein 6.5 g/dL (6.4-8.2) Albumin 2.7 g/dL (3.4-5.0) Albumin/Globulin Ratio 0.7 (1.0-1.7) Glucose (Fingerstick) 124 mg/dL (70-99) 153 mg/dL (70-99) 241 mg/dL (70-99) Test 09/01/18 19:53 09/02/18 03:05 09/02/18 07:11 Glucose (Fingerstick) 260 mg/dL (70-99) 85 mg/dL (70-99) Sodium Level 139 mmol/L (136-145) Potassium Level 4.4 mmol/L (3.5-5.1) Chloride Level 104 mmol/L (98-107) Carbon Dioxide Level 27 mmol/L (21-32) Anion Gap 8 (6-14) Blood Urea Nitrogen 25 mg/dL (7-20) Creatinine 1.1 mg/dL (0.6-1.0) Estimated GFR (Cockcroft-Gault) 48.6 Glucose Level 149 mg/dL (70-99) Calcium Level 9.5 mg/dL (8.5-10.1) Creatine Kinase 284 U/L (26-192) Laboratory Tests Test 09/01/18 11:30 09/01/18 16:52 09/01/18 19:53 09/02/18 03:05 Glucose (Fingerstick) 153 mg/dL (70-99) 241 mg/dL (70-99) 260 mg/dL (70-99) Sodium Level 139 mmol/L (136-145) Potassium Level 4.4 mmol/L (3.5-5.1) Chloride Level 104 mmol/L (98-107) Carbon Dioxide Level 27 mmol/L (21-32) Anion Gap 8 (6-14) Blood Urea Nitrogen 25 mg/dL (7-20) Creatinine 1.1 mg/dL (0.6-1.0) Estimated GFR (Cockcroft-Gault) 48.6 Glucose Level 149 mg/dL (70-99) Calcium Level 9.5 mg/dL (8.5-10.1) Creatine Kinase 284 U/L (26-192) Test 09/02/18 07:11 Glucose (Fingerstick) 85 mg/dL (70-99) Microbiology 08/29/18 Urine Culture - Final, Complete 08/29/18 Urine Culture Result 1 (SABINO) - Final, Complete Medications Current Medications Albuterol/ Ipratropium (Duoneb) 3 ml 1X ONCE NEB Last administered on 08/29/18at 19:42; Start 08/29/18 at 19:15; Stop 08/29/18 at 19:16; Status DC Sodium Chloride 1,000 ml @ 1,000 mls/hr 1X ONCE IV Last administered on 08/29/18at 19:44; Start 08/29/18 at 19:15; Stop 08/29/18 at 20:14; Status DC Sodium Chloride 1,000 ml @ 1,000 mls/hr 1X ONCE IV Last administered on 08/29/18at 21:44; Start 08/29/18 at 20:15; Stop 08/29/18 at 21:14; Status DC Levofloxacin/ Dextrose (Levaquin Per Pharmacy) 1 each PRN DAILY PRN [facility] SEE COMMENTS; Start 08/29/18 at 20:30; Stop 09/01/18 at 14:09; Status DC Sodium Chloride 1,000 ml @ 75 mls/hr [id number] IV Last administered on 08/29/18at 22:52; Start 08/29/18 at 20:29; Stop 08/30/18 at 20:28; Status DC Albuterol/ Ipratropium (Duoneb) 3 ml RTQID NEB ; Start 08/30/18 at 21:00; Stop 08/30/18 at 21:00; Status DC Levofloxacin/ Dextrose 50 ml @ 100 mls/hr Q24H IV Last administered on 09/01/18at 19:54; Start 08/29/18 at 21:00 Albuterol/ Ipratropium (Duoneb) 3 ml RTQID NEB Last administered on 09/02/18at 08:11; Start 08/30/18 at 08:15 Levofloxacin/ Dextrose 50 ml @ 50 mls/hr Q24H IV ; Start 08/30/18 at 08:30; Status UNV Potassium Chloride (Klor-Con) 40 meq 1X ONCE PO Last administered on 08/30/18at 10:59; Start 08/30/18 at 10:15; Stop 08/30/18 at 10:16; Status DC Potassium Chloride (Klor-Con) 20 meq DAILYWBKFT PO Last administered on 09/01/18at 09:37; Start 08/31/18 at 08:00 Amlodipine Besylate (Norvasc) 5 mg DAILY PO Last administered on 08/31/18 09:08; Start 08/30/18 at 11:00; Stop 09/01/18 at 08:32; Status DC Aspirin (Children'S Aspirin) 81 mg BID PO Last administered on 09/01/18 19:54; Start 08/30/18 at 11:00 Folic Acid (Folic Acid) 1 mg BID PO Last administered on 09/01/18 19:54; Start 08/30/18 at 11:00 Acetaminophen/ Hydrocodone Bitart (Lortab 5/325) 1 tab PRN Q6HRS PRN PO MODERATE PAIN; Start 08/30/18 at 10:30 Nortriptyline HCl (Pamelor) 25 mg DAILY PO Last administered on 09/01/18 09:37; Start 08/30/18 at 11:00 Non-Formulary Medication (Albuterol Sulfate (Proair Respiclick)) 1 puff Q4HRS INH ; Start 08/30/18 at 12:00; Status UNV Duloxetine HCl (Cymbalta) 60 mg DAILY PO Last administered on 09/01/18 09:37; Start 08/30/18 at 11:00 Non-Formulary Medication (Icosapent Ethyl (Vascepa)) 1 gm BID PO ; Start 08/30/18 at 21:00; Stop 08/31/18 at 17:21; Status DC Insulin Glargine (Lantus) 40 units QHS SQ Last administered on 09/01/18 20:02; Start 08/30/18 at 21:00 Labetalol HCl (Trandate) 100 mg BID PO Last administered on 09/01/18 19:55; Start 08/30/18 at 11:00 Prednisone (Prednisone) 10 mg DAILY PO Last administered on 09/01/18 09:37; Start 08/30/18 at 10:45 Pantoprazole Sodium (Protonix) 40 mg DAILYAC PO Last administered on 09/01/18 09:37; Start 08/30/18 at 11:30 Albuterol Sulfate (Ventolin Neb Soln) 2.5 mg Q4HRS@0000,0400 NEB ; Start 08/31/18 at 00:00; Stop 08/31/18 at 23:18; Status DC Polysaccharide Iron Complex (Niferex 150) 150 mg BID PO Last administered on 09/01/18 19:54; Start 08/30/18 at 11:00 Insulin Human Lispro (HumaLOG) 0-5 UNITS TIDWMEALS SQ Last administered on 08/31/18 17:23; Start 08/30/18 at 12:00; Stop 09/01/18 at 08:32; Status DC Dextrose (Dextrose 50%-Water Syringe) 12.5 gm PRN Q15MIN PRN IV SEE COMMENTS; Start 08/30/18 at 11:45 Sodium Chloride 1,000 ml @ 75 mls/hr [id number] IV Last administered on 09/02/18at 05:00; Start 08/31/18 at 13:00 Lactobacillus Rhamnosus (Culturelle) 1 cap BID PO Last administered on 09/01/18at 19:55; Start 08/31/18 at 21:00 Fish Oil (Fish Oil) 1,000 mg BID PO Last administered on 09/01/18at 19:55; Start 08/31/18 at 21:00 Albuterol Sulfate (Ventolin Neb Soln) 2.5 mg Q4HRS NEB ; Start 09/01/18 at 00:00; Stop 09/01/18 at 00:00; Status DC Albuterol Sulfate (Ventolin Neb Soln) 2.5 mg PRN Q4HRS PRN NEB SHORTNESS OF BREATH; Start 09/01/18 at 00:00 Amlodipine Besylate (Norvasc) 10 mg DAILY PO Last administered on 09/01/18at 09:38; Start 09/01/18 at 09:00 Insulin Human Lispro (HumaLOG) 0-9 UNITS TIDWMEALS SQ Last administered on 09/01/18at 17:17; Start 09/01/18 at 09:00 Dextrose (Dextrose 50%-Water Syringe) 12.5 gm PRN Q15MIN PRN IV SEE COMMENTS; Start 09/01/18 at 08:30; Status UNV Clonidine HCl (Catapres) 0.1 mg PRN Q1HR PRN PO HYPERTENSION, SEE COMMENTS; Start 09/01/18 at 08:45 Active Scripts [place] 5-325 Tablet (Acetaminophen/Hydrocodone Bitart) 1 Each Tablet 1 Tab PO PRN Q6HRS PRN Reported Vascepa (Icosapent Ethyl) 1 Gm Capsule 1 Gm PO BID Proair Respiclick (Albuterol Sulfate) 90 Mcg Aer.pow.ba 1 Puff INH Q4HRS Nortriptyline Hcl 25 Mg Capsule 25 Mg PO DAILY Levemir (Insulin Detemir) 100 Unit/1 Ml Vial 40 Unit SQ HS Folic Acid 1 Mg Tablet 1 Tab PO BID Metformin Hcl 500 Mg Tablet 1 Tab PO BID Novolog Flexpen (Insulin Aspart) 100 Unit/1 Ml Insuln.pen 15 Unit SQ TIDAC Cyclobenzaprine Hcl 10 Mg Tablet 1 Tab PO BID Atorvastatin Calcium 40 Mg Tablet 1 Tab PO QHS Amlodipine Besylate 10 Mg Tablet 0.5 Tab PO HS Losartan-Hctz 100-25 Mg Tab (Losartan/Hydrochlorothiazide) 1 Each Tablet 1 Tab PO DAILY Duloxetine Hcl 60 Mg Capsule.dr 60 Mg PO DAILY Aspirin 81 Mg Tab.chew 1 Tab PO BID Labetalol Hcl 100 Mg Tablet 1 Tab PO BID Vitals/I & O Vital Sign - Last 24 Hours 09/01/18 09/01/18 09/01/18 09/01/18 09:37 09:38 11:00 11:26 Temp 98.0 98.0 Pulse 72 72 77 Resp 18 B/P (MAP) 160/70 160/70 162/65 (97) Pulse Ox 93 94 O2 Delivery Room Air Room Air 09/01/18 09/01/18 09/01/18 09/01/18 15:00 15:31 19:24 19:55 Temp 98.4 98.2 98.4 98.2 Pulse 87 79 79 Resp 18 16 B/P (MAP) 142/61 (88) 143/56 (85) 143/56 Pulse Ox 92 94 91 O2 Delivery Room Air Room Air Room Air 09/01/18 09/01/18 09/01/18 09/02/18 20:00 20:02 23:21 03:31 Temp 97.8 98.2 97.8 98.2 Pulse 77 66 Resp 16 16 B/P (MAP) 165/73 (103) 179/74 (109) Pulse Ox 92 94 94 O2 Delivery Room Air Room Air Room Air Room Air 09/02/18 09/02/18 07:15 08:12 Temp 98.5 98.5 Pulse 84 Resp 18 B/P (MAP) 166/71 (102) Pulse Ox 95 96 O2 Delivery Room Air Room Air Intake and Output 09/01/18 09/01/18 09/02/18 15:00 23:00 07:00 Intake Total 250 ml 350 ml 300 ml Output Total 1200 ml Balance -950 ml 350 ml 300 ml AGUS EDWARD MD September 02, 2018 08:36
--- NOTE | 2018-09-02 08:37 | SNU/HH DC ---
DISCHARGE WITH HOME HEALTH DISCHARGE INFORMATION: Discharge Date: September 02, 2018 Condition on Discharge: Stable CODE STATUS: Code Status: Full HOME HEALTH: Face to Face: I certify this patient is under my care and that I, or a nurse practitioner or physician's talent acquisition assistant working with me, had a face to face encounter that meets the physician face to face encounter requirements with this patient on []. Medical Complications: Falls, HTN RN For Eval/Treatment: Yes Physical Therapy For: Evalulation/Treatment Occupational Therapy For: Evaluation/Treatment Home Health Aide For: Self-care ELECTRICAL ASSEMBLY TECHNICIAN For: Community Resources Pt Meets Homebound Status: Extreme weakness w/ amb. POST DISCHARGE ORDERS: Activity Instructions for Disc: Activity as tolerated Weight Bearing Status after Di: As tolerated Bathing Instructions: Shower-keep dressing dry CHECKS AFTER DISCHARGE: Checks after discharge: Check blood press - daily FOLLOW-UP: PCP to follow Home Health: recheck cpk next week Follow up with: pcp 1 mopnth re high lfts (statin was stopped) and BP TREATMENT/EQUIPMENT ORDERS: Adaptive Equipment Issued: None CERTIFICATION STATEMENT: Certification Statement: Certification Statement: Based on the above finding, I certify that this patient is confined to the home and needs intermittent half-way care, physical therapy and/or speech therapy, or continues to need occupational therapy.~ This patient is under my care, and I have initiated the establishment of the plan of care.~ This patient will be followed by myself or a community physician who will periodically review the plan of care. Home Meds Active Scripts Prednisone (PREDNISONE ) 10 Mg Tablet, 10 MG PO DAILY for back pain MDD 1 for 2 Days, #2 TAB Prov:JAKI AGUILERA MD 09/02/18 Hydrocodone/Apap 5-325 (NORCO 5-325 TABLET) 1 Each Tablet, 1 TAB PO PRN Q6HRS PRN for PAIN, #15 TAB 0 Refills Prov:CHARLOTTE BRADY DO 07/27/18 Reported Medications Icosapent Ethyl (VASCEPA) 1 Gm Capsule, 1 GM PO BID for omega 3 supplement 08/29/18 Albuterol Sulfate (Proair Respiclick) 90 Mcg Aer.pow.ba, 1 PUFF INH Q4HRS for wheezing 08/29/18 Nortriptyline Hcl (NORTRIPTYLINE HCL) 25 Mg Capsule, 25 MG PO DAILY for depression 08/29/18 Insulin Detemir (LEVEMIR) 100 Unit/1 Ml Vial, 40 UNIT SQ HS, VIAL 09/13/16 Folic Acid (FOLIC ACID) 1 Mg Tablet, 1 TAB PO BID, #90 TAB 1 Refill 02/01/15 Metformin Hcl (METFORMIN HCL) 500 Mg Tablet, 1 TAB PO BID, #60 TAB 3 Refills 02/01/15 Insulin Aspart (NOVOLOG FLEXPEN) 100 Unit/1 Ml Insuln.pen, 15 UNIT SQ TIDAC for diabetes, SYR 02/01/15 Cyclobenzaprine Hcl (CYCLOBENZAPRINE HCL) 10 Mg Tablet, 1 TAB PO BID, #90 TAB 02/01/15 Atorvastatin Calcium (ATORVASTATIN CALCIUM) 40 Mg Tablet, 1 TAB PO QHS, #90 TAB 3 Refills 02/01/15 Amlodipine Besylate (AMLODIPINE BESYLATE) 10 Mg Tablet, 0.5 TAB PO HS, TAB 02/01/15 Losartan/Hydrochlorothiazide (LOSARTAN-HCTZ 100-25 MG TAB) 1 Each Tablet, 1 TAB PO DAILY, #30 TAB 5 Refills 02/01/15 Duloxetine Hcl (DULOXETINE HCL) 60 Mg Capsule.dr, 60 MG PO DAILY, CAP 02/01/15 Aspirin (ASPIRIN) 81 Mg Tab.chew, 1 TAB PO BID, #30 TAB 3 Refills 02/01/15 Labetalol Hcl (LABETALOL HCL) 100 Mg Tablet, 1 TAB PO BID, #60 TAB 5 Refills 02/01/15 Discontinued Reported Medications Hydrocodone Bit/Acetaminophen (VICODIN 5-300 MG TABLET) 1 Each Tablet, 1 EACH PO Q4H PRN for PAIN, TAB 0 Refills 09/13/16 Multivits,Th W-Fe,Other Min (COMPLETE MULTIVITAMIN) 1 Each Tablet, 1 EACH PO DAILY 02/01/15 Sertraline Hcl (ZOLOFT) 25 Mg Tablet, 1 TAB PO DAILY, #30 TAB 2 Refills 10/09/16 Trazodone Hcl (TRAZODONE HCL) 100 Mg Tablet, 1 TAB PO QHS, #30 TAB 1 Refill 10/09/16 Calcium Carbonate/Vitamin D3 (Calcium 600 + D Tablet) 1 Each Tablet, 1 EACH PO DAILY 02/01/15 Oxybutynin Chloride (OXYBUTYNIN CHLORIDE) 5 Mg Tablet, 2 TAB PO HS, #60 TAB 11 Refills 02/01/15 Furosemide (FUROSEMIDE) 20 Mg Tablet, 1 TAB PO DAILY, #90 TAB 1 Refill 02/01/15 Fexofenadine Hcl (EDWARD ALLERGY) 180 Mg Tablet, 1 TAB PO DAILY, #30 TAB 2 Refills 02/01/15 Gabapentin (GABAPENTIN ) 100 Mg Capsule, 1 CAP PO TID, #90 CAP 2 Refills 02/01/15 JAKI AGUILERA MD September 02, 2018 08:37
[2018-09-02] MEDS: DULoxetine HCL 30 MG CAPSULE.DR PO SCH (10:10)
[2018-09-02] MEDS: POTASSIUM CHLORIDE 20 MEQ TABLET.ER. PO SCH (10:10)
[2018-09-02] MEDS: OMEGA-3 FATTY ACIDS/FISH OIL 1,000 MG CAPSULE. PO SCH (10:11)
[2018-09-02] MEDS: NORTRIPTYLINE 25 MG CAPSULE PO SCH (10:11)
[2018-09-02] MEDS: predniSONE 10 MG TABLET PO SCH (10:11)
[2018-09-02] MEDS: IRON POLYSACCHARIDE COMPLEX 150 MG CAPSULE PO SCH (10:11)
[2018-09-02] MEDS: amLODIPine BESYLATE 10 MG TABLET PO SCH (10:11)
[2018-09-02] MEDS: LABETALOL HCL 100 MG TABLET. PO SCH (10:11)
[2018-09-02] MEDS: ASPIRIN CHEWABLE 81 MG TABLET. PO SCH (10:11)
[2018-09-02] MEDS: LACTOBACILLUS RHAMNOSUS GG 1 CAPSULE. PO SCH (10:11)
[2018-09-02] MEDS: FOLIC ACID 1 MG TABLET. PO SCH (10:11)
[2018-09-02] MEDS: PANTOPRAZOLE 40 MG TABLET.DR. PO SCH (10:12)
--- NOTE | 2018-09-02 10:37 | PDOC ---
PROGRESS NOTES Assessment * Fall, prolonged time on the floor, with rhabdomyolysis, which is improving * No stroke. * Diabetic peripheral neuropathy. * Chronic low back pain,no acute radiculopathy Plan Subjective feels better Objective Vital Signs Date Time Temp Pulse Resp B/P (MAP) Pulse Ox O2 Delivery O2 Flow Rate FiO2 09/01/18 11:26 94 Room Air 09/01/18 11:00 98.0 77 18 162/65 (97) 98.0 09/01/18 08:00 2.0 Intake and Output 09/01/18 06:59 Intake Total 2480 ml Balance 2480 ml Intake Oral 2480 ml # Voids 5 # Bowel Movements 1 PHYSICAL EXAM No temporal artery tenderness Plan * Resume statin * Dr. Akhtar started prednisone, needs to be tapered off * Hold on MRI of the lumbar spine * Rehabilitation modalities. * Follow CPK * Follow ESR, recheck in 2 weeks * I think she would be better off in [facility], but no rehab as recommended home with home health, that's fine * Follow-up with neurology as needed. Subjective Feels better, wants to go home and stay with her daughter for a few days Objective Vital Signs Date Time Temp Pulse Resp B/P (MAP) Pulse Ox O2 Delivery O2 Flow Rate FiO2 09/02/18 10:11 84 166/71 09/02/18 08:12 96 Room Air 09/02/18 07:15 98.5 18 98.5 09/01/18 08:00 2.0 Intake and Output 09/02/18 06:59 Intake Total 900 ml Output Total 1200 ml Balance -300 ml Intake Oral 550 ml Tube Feeding 350 ml Output Urine Total 1200 ml # Voids 7 # Bowel Movements 2 PHYSICAL EXAM Alert. Oriented to time, place and person. PERRL. EOMI. CN: no focal findings. Muscle tone: normal. Muscle strength: 4/5 DTR: 1+ Plantar reflex: flexor Gait: not examined in bed. Sensory exam: stocking loss, worse in left leg. No cerebellar signs elicited. Review of Relevant I have reviewed the following items gretel (where applicable) has been applied. Labs Laboratory Tests Test 08/31/18 11:55 08/31/18 17:01 08/31/18 20:58 09/01/18 03:49 Glucose (Fingerstick) 154 mg/dL (70-99) 297 mg/dL (70-99) 321 mg/dL (70-99) White Blood Count 6.7 x10^3/uL (4.0-11.0) Red Blood Count 3.35 x10^6/uL (3.50-5.40) Hemoglobin 10.7 g/dL (12.0-15.5) Hematocrit 32.5 % (36.0-47.0) Mean Corpuscular Volume 97 fL (79-100) Mean Corpuscular Hemoglobin 32 pg (25-35) Mean Corpuscular Hemoglobin Concent 33 g/dL (31-37) Red Cell Distribution Width 15.0 % (11.5-14.5) Platelet Count 265 x10^3/uL (140-400) Neutrophils (%) (Auto) 53 % (31-73) Lymphocytes (%) (Auto) 35 % (24-48) Monocytes (%) (Auto) 9 % (0-9) Eosinophils (%) (Auto) 3 % (0-3) Basophils (%) (Auto) 1 % (0-3) Neutrophils # (Auto) 3.5 x10^3uL (1.8-7.7) Lymphocytes # (Auto) 2.3 x10^3/uL (1.0-4.8) Monocytes # (Auto) 0.6 x10^3/uL (0.0-1.1) Eosinophils # (Auto) 0.2 x10^3/uL (0.0-0.7) Basophils # (Auto) 0.0 x10^3/uL (0.0-0.2) Sodium Level 142 mmol/L (136-145) Potassium Level 4.5 mmol/L (3.5-5.1) Chloride Level 106 mmol/L (98-107) Carbon Dioxide Level 27 mmol/L (21-32) Anion Gap 9 (6-14) Blood Urea Nitrogen 25 mg/dL (7-20) Creatinine 1.3 mg/dL (0.6-1.0) Estimated GFR (Cockcroft-Gault) 40.0 BUN/Creatinine Ratio 19 (6-20) Glucose Level 204 mg/dL (70-99) Calcium Level 9.4 mg/dL (8.5-10.1) Total Bilirubin 0.3 mg/dL (0.2-1.0) Aspartate Amino Transf (AST/SGOT) 32 U/L (15-37) Alanine Aminotransferase (ALT/SGPT) 49 U/L (14-59) Alkaline Phosphatase 62 U/L (46-116) Creatine Kinase 385 U/L (26-192) Total Protein 6.5 g/dL (6.4-8.2) Albumin 2.7 g/dL (3.4-5.0) Albumin/Globulin Ratio 0.7 (1.0-1.7) Test 09/01/18 07:11 09/01/18 11:30 09/01/18 16:52 09/01/18 19:53 Glucose (Fingerstick) 124 mg/dL (70-99) 153 mg/dL (70-99) 241 mg/dL (70-99) 260 mg/dL (70-99) Test 09/02/18 03:05 09/02/18 07:11 Sodium Level 139 mmol/L (136-145) Potassium Level 4.4 mmol/L (3.5-5.1) Chloride Level 104 mmol/L (98-107) Carbon Dioxide Level 27 mmol/L (21-32) Anion Gap 8 (6-14) Blood Urea Nitrogen 25 mg/dL (7-20) Creatinine 1.1 mg/dL (0.6-1.0) Estimated GFR (Cockcroft-Gault) 48.6 Glucose Level 149 mg/dL (70-99) Calcium Level 9.5 mg/dL (8.5-10.1) Creatine Kinase 284 U/L (26-192) Glucose (Fingerstick) 85 mg/dL (70-99) Laboratory Tests Test 09/01/18 11:30 09/01/18 16:52 09/01/18 19:53 09/02/18 03:05 Glucose (Fingerstick) 153 mg/dL (70-99) 241 mg/dL (70-99) 260 mg/dL (70-99) Sodium Level 139 mmol/L (136-145) Potassium Level 4.4 mmol/L (3.5-5.1) Chloride Level 104 mmol/L (98-107) Carbon Dioxide Level 27 mmol/L (21-32) Anion Gap 8 (6-14) Blood Urea Nitrogen 25 mg/dL (7-20) Creatinine 1.1 mg/dL (0.6-1.0) Estimated GFR (Cockcroft-Gault) 48.6 Glucose Level 149 mg/dL (70-99) Calcium Level 9.5 mg/dL (8.5-10.1) Creatine Kinase 284 U/L (26-192) Test 09/02/18 07:11 Glucose (Fingerstick) 85 mg/dL (70-99) Microbiology 08/29/18 Urine Culture - Final, Complete 08/29/18 Urine Culture Result 1 (SABINO) - Final, Complete Medications Current Medications Albuterol/ Ipratropium (Duoneb) 3 ml 1X ONCE NEB Last administered on 08/29/18at 19:42; Start 08/29/18 at 19:15; Stop 08/29/18 at 19:16; Status DC Sodium Chloride 1,000 ml @ 1,000 mls/hr 1X ONCE IV Last administered on 08/29/18at 19:44; Start 08/29/18 at 19:15; Stop 08/29/18 at 20:14; Status DC Sodium Chloride 1,000 ml @ 1,000 mls/hr 1X ONCE IV Last administered on 08/29/18at 21:44; Start 08/29/18 at 20:15; Stop 08/29/18 at 21:14; Status DC Levofloxacin/ Dextrose (Levaquin Per Pharmacy) 1 each PRN DAILY PRN MC SEE COMMENTS; Start 08/29/18 at 20:30; Stop 09/01/18 at 14:09; Status DC Sodium Chloride 1,000 ml @ 75 mls/hr [id number] IV Last administered on 08/29/18at 22:52; Start 08/29/18 at 20:29; Stop 08/30/18 at 20:28; Status DC Albuterol/ Ipratropium (Duoneb) 3 ml RTQID NEB ; Start 08/30/18 at 21:00; Stop 08/30/18 at 21:00; Status DC Levofloxacin/ Dextrose 50 ml @ 100 mls/hr Q24H IV Last administered on 09/01/18at 19:54; Start 08/29/18 at 21:00; Stop 09/02/18 at 08:34; Status DC Albuterol/ Ipratropium (Duoneb) 3 ml RTQID NEB Last administered on 09/02/18 08:11; Start 08/30/18 at 08:15 Levofloxacin/ Dextrose 50 ml @ 50 mls/hr Q24H IV ; Start 08/30/18 at 08:30; Status UNV Potassium Chloride (Klor-Con) 40 meq 1X ONCE PO Last administered on 08/30/18 10:59; Start 08/30/18 at 10:15; Stop 08/30/18 at 10:16; Status DC Potassium Chloride (Klor-Con) 20 meq [id number] PO Last administered on 09/02/18 10:10; Start 08/31/18 at 08:00 Amlodipine Besylate (Norvasc) 5 mg DAILY PO Last administered on 08/31/18 09:08; Start 08/30/18 at 11:00; Stop 09/01/18 at 08:32; Status DC Aspirin (Children'S Aspirin) 81 mg BID PO Last administered on 09/02/18 10:11; Start 08/30/18 at 11:00 Folic Acid (Folic Acid) 1 mg BID PO Last administered on 09/02/18 10:11; Start 08/30/18 at 11:00 Acetaminophen/ Hydrocodone Bitart (Lortab 5/325) 1 tab PRN Q6HRS PRN PO MODERATE PAIN; Start 08/30/18 at 10:30 Nortriptyline HCl (Pamelor) 25 mg DAILY PO Last administered on 09/02/18 10:11; Start 08/30/18 at 11:00 Non-Formulary Medication (Albuterol Sulfate (Proair Respiclick)) 1 puff Q4HRS INH ; Start 08/30/18 at 12:00; Status UNV Duloxetine HCl (Cymbalta) 60 mg DAILY PO Last administered on 09/02/18 10:10; Start 08/30/18 at 11:00 Non-Formulary Medication (Icosapent Ethyl (Vascepa)) 1 gm BID PO ; Start 08/30/18 at 21:00; Stop 08/31/18 at 17:21; Status DC Insulin Glargine (Lantus) 40 units QHS SQ Last administered on 09/01/18 20:02; Start 08/30/18 at 21:00 Labetalol HCl (Trandate) 100 mg BID PO Last administered on 09/02/18 10:11; Start 08/30/18 at 11:00 Prednisone (Prednisone) 10 mg DAILY PO Last administered on 09/02/18 10:11; Start 08/30/18 at 10:45 Pantoprazole Sodium (Protonix) 40 mg DAILYAC PO Last administered on 09/02/18 10:12; Start 08/30/18 at 11:30 Albuterol Sulfate (Ventolin Neb Soln) 2.5 mg Q4HRS@0000,0400 NEB ; Start 08/31/18 at 00:00; Stop 08/31/18 at 23:18; Status DC Polysaccharide Iron Complex (Niferex 150) 150 mg BID PO Last administered on 09/02/18 10:11; Start 08/30/18 at 11:00 Insulin Human Lispro (HumaLOG) 0-5 UNITS TIDWMEALS SQ Last administered on 08/31/18at 17:23; Start 08/30/18 at 12:00; Stop 09/01/18 at 08:32; Status DC Dextrose (Dextrose 50%-Water Syringe) 12.5 gm PRN Q15MIN PRN IV SEE COMMENTS; Start 08/30/18 at 11:45 Sodium Chloride 1,000 ml @ 75 mls/hr [id number] IV Last administered on 09/02/18at 05:00; Start 08/31/18 at 13:00 Lactobacillus Rhamnosus (Culturelle) 1 cap BID PO Last administered on 09/02/18 10:11; Start 08/31/18 at 21:00 Fish Oil (Fish Oil) 1,000 mg BID PO Last administered on 09/02/18 10:11; Start 08/31/18 at 21:00 Albuterol Sulfate (Ventolin Neb Soln) 2.5 mg Q4HRS NEB ; Start 09/01/18 at 00:00; Stop 09/01/18 at 00:00; Status DC Albuterol Sulfate (Ventolin Neb Soln) 2.5 mg PRN Q4HRS PRN NEB SHORTNESS OF BREATH; Start 09/01/18 at 00:00 Amlodipine Besylate (Norvasc) 10 mg DAILY PO Last administered on 09/02/18at 10:11; Start 09/01/18 at 09:00 Insulin Human Lispro (HumaLOG) 0-9 UNITS TIDWMEALS SQ Last administered on 09/01/18at 17:17; Start 09/01/18 at 09:00 Dextrose (Dextrose 50%-Water Syringe) 12.5 gm PRN Q15MIN PRN IV SEE COMMENTS; Start 09/01/18 at 08:30; Status UNV Clonidine HCl (Catapres) 0.1 mg PRN Q1HR PRN PO HYPERTENSION, SEE COMMENTS; Start 09/01/18 at 08:45 Active Scripts Active Prednisone (Prednisone) 10 Mg Tablet 10 Mg PO DAILY MDD 1 2 Days [place] 5-325 Tablet (Acetaminophen/Hydrocodone Bitart) 1 Each Tablet 1 Tab PO PRN Q6HRS PRN Reported Vascepa (Icosapent Ethyl) 1 Gm Capsule 1 Gm PO BID Proair Respiclick (Albuterol Sulfate) 90 Mcg Aer.pow.ba 1 Puff INH Q4HRS Nortriptyline Hcl 25 Mg Capsule 25 Mg PO DAILY Levemir (Insulin Detemir) 100 Unit/1 Ml Vial 40 Unit SQ HS Folic Acid 1 Mg Tablet 1 Tab PO BID Metformin Hcl 500 Mg Tablet 1 Tab PO BID Novolog Flexpen (Insulin Aspart) 100 Unit/1 Ml Insuln.pen 15 Unit SQ TIDAC Cyclobenzaprine Hcl 10 Mg Tablet 1 Tab PO BID Atorvastatin Calcium 40 Mg Tablet 1 Tab PO QHS Amlodipine Besylate 10 Mg Tablet 0.5 Tab PO HS Losartan-Hctz 100-25 Mg Tab (Losartan/Hydrochlorothiazide) 1 Each Tablet 1 Tab PO DAILY Duloxetine Hcl 60 Mg Capsule.dr 60 Mg PO DAILY Aspirin 81 Mg Tab.chew 1 Tab PO BID Labetalol Hcl 100 Mg Tablet 1 Tab PO BID Vitals/I & O Vital Sign - Last 24 Hours 09/01/18 09/01/18 09/01/18 09/01/18 11:00 11:26 15:00 15:31 Temp 98.0 98.4 98.0 98.4 Pulse 77 87 Resp 18 18 B/P (MAP) 162/65 (97) 142/61 (88) Pulse Ox 93 94 92 94 O2 Delivery Room Air Room Air Room Air Room Air 09/01/18 09/01/18 09/01/18 09/01/18 19:24 19:55 20:00 20:02 Temp 98.2 98.2 Pulse 79 79 Resp 16 B/P (MAP) 143/56 (85) 143/56 Pulse Ox 91 92 O2 Delivery Room Air Room Air Room Air 09/01/18 09/02/18 09/02/18 09/02/18 23:21 03:31 07:15 08:12 Temp 97.8 98.2 98.5 97.8 98.2 98.5 Pulse 77 66 84 Resp 16 16 18 B/P (MAP) 165/73 (103) 179/74 (109) 166/71 (102) Pulse Ox 94 94 95 96 O2 Delivery Room Air Room Air Room Air Room Air 09/02/18 09/02/18 10:11 10:11 Pulse 84 84 B/P (MAP) 166/71 166/71 Intake and Output 09/01/18 09/01/18 09/02/18 14:59 22:59 06:59 Intake Total 250 ml 350 ml 300 ml Output Total 1200 ml Balance -950 ml 350 ml 300 ml MIREYA CHEW MD September 02, 2018 10:37
--- NOTE | 2018-09-02 10:50 | PDOC3 ---
Discharge Summary Visit Information Date of Admission: August 29, 2018 Date of Discharge: September 02, 2018 Admitting Diagnosis Comment: 1.syncope and lower extremity weakness 2. Acute renal failure 3. rhabodomyolysis, 4. Diabetes mellitus type 2. 5. Accel Hypertension, hypertensive cardiovascular disease. diastolic CHF 6. Hyperlipidemia. 7. UTI 8. back pain with spinal stenosis and spondylolisthesis and DJD 9. hypokalemia Brief Hospital Course Allergies Allergies Coded Allergies Type Severity Reaction Last Updated Verified NSAIDS (Non-Steroidal Anti-Inflamma Allergy Intermediate 09/13/16 Yes aspirin Allergy Intermediate 10/17/14 Yes diphenhydramine Allergy Intermediate hives 09/13/16 Yes morphine Allergy Intermediate 10/15/14 Yes Penicillins Allergy Unknown 09/13/16 Yes Vital Signs Vital Signs Date Time Temp Pulse Resp B/P (MAP) Pulse Ox O2 Delivery O2 Flow Rate FiO2 09/02/18 10:11 84 166/71 09/02/18 08:12 96 Room Air 09/02/18 08:00 2.0 09/02/18 07:15 98.5 18 98.5 Lab Results Laboratory Tests Test 08/31/18 11:55 08/31/18 17:01 08/31/18 20:58 09/01/18 03:49 Glucose (Fingerstick) 154 mg/dL (70-99) 297 mg/dL (70-99) 321 mg/dL (70-99) White Blood Count 6.7 x10^3/uL (4.0-11.0) Red Blood Count 3.35 x10^6/uL (3.50-5.40) Hemoglobin 10.7 g/dL (12.0-15.5) Hematocrit 32.5 % (36.0-47.0) Mean Corpuscular Volume 97 fL (79-100) Mean Corpuscular Hemoglobin 32 pg (25-35) Mean Corpuscular Hemoglobin Concent 33 g/dL (31-37) Red Cell Distribution Width 15.0 % (11.5-14.5) Platelet Count 265 x10^3/uL (140-400) Neutrophils (%) (Auto) 53 % (31-73) Lymphocytes (%) (Auto) 35 % (24-48) Monocytes (%) (Auto) 9 % (0-9) Eosinophils (%) (Auto) 3 % (0-3) Basophils (%) (Auto) 1 % (0-3) Neutrophils # (Auto) 3.5 x10^3uL (1.8-7.7) Lymphocytes # (Auto) 2.3 x10^3/uL (1.0-4.8) Monocytes # (Auto) 0.6 x10^3/uL (0.0-1.1) Eosinophils # (Auto) 0.2 x10^3/uL (0.0-0.7) Basophils # (Auto) 0.0 x10^3/uL (0.0-0.2) Sodium Level 142 mmol/L (136-145) Potassium Level 4.5 mmol/L (3.5-5.1) Chloride Level 106 mmol/L (98-107) Carbon Dioxide Level 27 mmol/L (21-32) Anion Gap 9 (6-14) Blood Urea Nitrogen 25 mg/dL (7-20) Creatinine 1.3 mg/dL (0.6-1.0) Estimated GFR (Cockcroft-Gault) 40.0 BUN/Creatinine Ratio 19 (6-20) Glucose Level 204 mg/dL (70-99) Calcium Level 9.4 mg/dL (8.5-10.1) Total Bilirubin 0.3 mg/dL (0.2-1.0) Aspartate Amino Transf (AST/SGOT) 32 U/L (15-37) Alanine Aminotransferase (ALT/SGPT) 49 U/L (14-59) Alkaline Phosphatase 62 U/L (46-116) Creatine Kinase 385 U/L (26-192) Total Protein 6.5 g/dL (6.4-8.2) Albumin 2.7 g/dL (3.4-5.0) Albumin/Globulin Ratio 0.7 (1.0-1.7) Test 09/01/18 07:11 09/01/18 11:30 09/01/18 16:52 09/01/18 19:53 Glucose (Fingerstick) 124 mg/dL (70-99) 153 mg/dL (70-99) 241 mg/dL (70-99) 260 mg/dL (70-99) Test 09/02/18 03:05 09/02/18 07:11 Sodium Level 139 mmol/L (136-145) Potassium Level 4.4 mmol/L (3.5-5.1) Chloride Level 104 mmol/L (98-107) Carbon Dioxide Level 27 mmol/L (21-32) Anion Gap 8 (6-14) Blood Urea Nitrogen 25 mg/dL (7-20) Creatinine 1.1 mg/dL (0.6-1.0) Estimated GFR (Cockcroft-Gault) 48.6 Glucose Level 149 mg/dL (70-99) Calcium Level 9.5 mg/dL (8.5-10.1) Creatine Kinase 284 U/L (26-192) Glucose (Fingerstick) 85 mg/dL (70-99) Laboratory Tests Test 09/01/18 11:30 09/01/18 16:52 09/01/18 19:53 09/02/18 03:05 Glucose (Fingerstick) 153 mg/dL (70-99) 241 mg/dL (70-99) 260 mg/dL (70-99) Sodium Level 139 mmol/L (136-145) Potassium Level 4.4 mmol/L (3.5-5.1) Chloride Level 104 mmol/L (98-107) Carbon Dioxide Level 27 mmol/L (21-32) Anion Gap 8 (6-14) Blood Urea Nitrogen 25 mg/dL (7-20) Creatinine 1.1 mg/dL (0.6-1.0) Estimated GFR (Cockcroft-Gault) 48.6 Glucose Level 149 mg/dL (70-99) Calcium Level 9.5 mg/dL (8.5-10.1) Creatine Kinase 284 U/L (26-192) Test 09/02/18 07:11 Glucose (Fingerstick) 85 mg/dL (70-99) Brief Hospital Course Ms. Richards is a 73 old very pleasant female who came in in rhabdomyolysis after found on the ground for unknown duration of time but there was no LOC. SHe came with acute renal failure. She has diabetes type 2 and hypertension. Diastolic heart failure. Her CPK was over 1000 on admission. With gentle IV fluids came down to 200s on day of discharge feeling better with AK I resolved. She was on metformin lisinopril HCTZ which we were holding naturally. Her blood pressure has been good even without those BP meds. Neurology also was consulted for stroke workup bec she had some encephalopathy. But MRI is negative. We advise repeat CPK levels in 1-2 weeks time. I did advise her to follow-up with PCP regarding blood pressure because so far we have been holding lisinopril HCTZ and metformin because of AK I and also the statin because of some elevated LFTs and element of rhabdo and muscle pain. Hence we'll need to follow-up with PCP make sure blood pressure is still under control Discharge disposition home with home health Consults performed neurology, renal Procedures performed IV fluid and stroke workup time 32 mins Discharge Information Condition at Discharge: Improved, Stable Follow Up: Weeks (PCP in 1 month regarding blood pressure; Repeat CPK levels in 1-2 weeks) Disposition/Orders: D/C to Home w/ HH Scheduled Albuterol Sulfate (Proair Respiclick) 90 Mcg Aer.pow.ba, 1 PUFF INH Q4HRS for wheezing, (Reported) Entered as Reported by: JUSTINE TYSON on 08/29/182235 Last Action: Converted on 08/30/181028 by MARISOL LEMOS MD Amlodipine Besylate (Amlodipine Besylate) 10 Mg Tablet, 0.5 TAB PO HS, (Reported) Entered as Reported by: RANJIT TITUS on 02/01/15824 Last Action: Continued on 08/30/181028 by MARISOL LEMOS MD Aspirin (Aspirin) 81 Mg Tab.chew, 1 TAB PO BID, #30 Ref 3 (Reported) Entered as Reported by: RANJIT TITUS on 02/01/15824 Last Action: Continued on 08/30/181028 by MARISOL LEMOS MD Atorvastatin Calcium (Atorvastatin Calcium) 40 Mg Tablet, 1 TAB PO QHS, #90 Ref 3 (Reported) Entered as Reported by: RANJIT TITUS on 02/01/15824 Last Action: HELD on 08/30/181028 by MARISOL LEMOS MD Cyclobenzaprine Hcl (Cyclobenzaprine Hcl) 10 Mg Tablet, 1 TAB PO BID, #90 (Reported) Entered as Reported by: RANJIT TITUS on 02/01/15824 Last Action: HELD on 08/30/181028 by MARISOL LEMOS MD Duloxetine Hcl (Duloxetine Hcl) 60 Mg Capsule.dr, 60 MG PO DAILY, (Reported) Entered as Reported by: RANJIT TITUS on 02/01/15824 Last Action: Converted on 08/30/181028 by MARISOL LEMOS MD Folic Acid (Folic Acid) 1 Mg Tablet, 1 TAB PO BID, #90 Ref 1 (Reported) Entered as Reported by: RANJIT TITUS on 02/01/15824 Last Action: Continued on 08/30/18 102 by MARISOL LEMOS MD Icosapent Ethyl (Vascepa) 1 Gm Capsule, 1 GM PO BID for omega 3 supplement, (Reported) Entered as Reported by: JUSTINE TYSON on 08/29/182235 Last Action: Converted on 08/30/181028 by MARISOL LEMOS MD Insulin Aspart (Novolog Flexpen) 100 Unit/1 Ml Insuln.pen, 15 UNIT SQ TIDAC for diabetes, (Reported) Entered as Reported by: RANJIT TITUS on 02/01/15824 Last Action: HELD on 08/30/181028 by MARISOL LEMOS MD Insulin Detemir (Levemir) 100 Unit/1 Ml Vial, 40 UNIT SQ HS, (Reported) Entered as Reported by: BEBE HINTON on 09/13/162205 Last Action: Converted on 08/30/181028 by MARISOL LEMOS MD Labetalol Hcl (Labetalol Hcl) 100 Mg Tablet, 1 TAB PO BID, #60 Ref 5 (Reported) Entered as Reported by: RANJIT TITUS on 02/01/15824 Last Action: Converted on 08/30/181028 by MARISOL LEMOS MD Losartan/Hydrochlorothiazide (Losartan-Hctz 100-25 Mg Tab) 1 Each Tablet, 1 TAB PO DAILY, #30 Ref 5 (Reported) Entered as Reported by: RANJIT TITUS on 02/01/15824 Last Action: HELD on 08/30/181028 by MARISOL LEMOS MD Metformin Hcl (Metformin Hcl) 500 Mg Tablet, 1 TAB PO BID, #60 Ref 3 (Reported) Entered as Reported by: RANJIT TITUS on 02/01/15824 Last Action: HELD on 08/30/181028 by MARISOL LEMOS MD Nortriptyline Hcl (Nortriptyline Hcl) 25 Mg Capsule, 25 MG PO DAILY for depression, (Reported) Entered as Reported by: JUSTINE TYSON on 08/29/182235 Last Action: Continued on 08/30/181028 by MARISOL LEMOS MD Prednisone (Prednisone ) 10 Mg Tablet, 10 MG PO DAILY for back pain MDD 1 for 2 Days, #2 Prescribed by: JAKI AGUILERA on 09/02/18835 Scheduled PRN Hydrocodone/Apap 5-325 ([place] 5-325 Tablet) 1 Each Tablet, 1 TAB PO PRN Q6HRS PRN for PAIN, #15 Ref 0 Prescribed by: CHARLOTTE BRADY D.O. on 07/27/182225 Last Action: Continued on 08/30/181028 by MARISOL LEMOS MD Discontinued Medications Calcium Carbonate/Vitamin D3 (Calcium 600 + D Tablet) 1 Each Tablet, 1 EACH PO DAILY, (Reported) Entered as Reported by: RANJIT TITUS on 02/01/15824 Last Action: Discontinued on 08/29/182235 by JUSTINE TYSON Fexofenadine Hcl (Maribell Allergy) 180 Mg Tablet, 1 TAB PO DAILY, #30 Ref 2 (Reported) Entered as Reported by: RANJIT TITUS on 02/01/15824 Last Action: Discontinued on 08/29/182235 by JUSTINE TYSON Furosemide (Furosemide) 20 Mg Tablet, 1 TAB PO DAILY, #90 Ref 1 (Reported) Entered as Reported by: RANJIT TITUS on 02/01/15824 Last Action: Discontinued on 08/29/182235 by JUSTINE TYSON Gabapentin (Gabapentin ) 100 Mg Capsule, 1 CAP PO TID, #90 Ref 2 (Reported) Entered as Reported by: RANJIT TITUS on 02/01/15824 Last Action: Discontinued on 08/29/182235 by JUSTINE TYSON Hydrocodone Bit/Acetaminophen (Vicodin 5-300 Mg Tablet) 1 Each Tablet, 1 EACH PO Q4H PRN for PAIN, Ref 0 (Reported) Entered as Reported by: BEBE HINTON on 09/13/162205 Last Action: Discontinued on 08/30/18 06 by JUSTINE TYSON Multivits,Th W-Fe,Other Min (Complete Multivitamin) 1 Each Tablet, 1 EACH PO DAILY, (Reported) Entered as Reported by: RANJIT TITUS on 02/01/15824 Last Action: Discontinued on 08/30/18610 by JUSTINE TYSON Oxybutynin Chloride (Oxybutynin Chloride) 5 Mg Tablet, 2 TAB PO HS, #60 Ref 11 (Reported) Entered as Reported by: RANJIT TITUS on 02/01/15824 Last Action: Discontinued on 08/29/182235 by JUSTINE TYSON Sertraline Hcl (Zoloft) 25 Mg Tablet, 1 TAB PO DAILY, #30 Ref 2 (Reported) Entered as Reported by: BRAULIO MULLER on 10/09/16 1111 Last Action: Discontinued on 08/29/182235 by JUSTINE TYSON Trazodone Hcl (Trazodone Hcl) 100 Mg Tablet, 1 TAB PO QHS, #30 Ref 1 (Reported) Entered as Reported by: BRAULIO MULLER on 10/09/16 1111 Last Action: Discontinued on 08/29/182235 by JAKI DHALIWAL MD September 02, 2018 10:50
[2018-09-02 11:00] VITALS: BP 151/70
--- NOTE | 2018-09-02 11:25 | PDOC ---
Renal-Progress Notes Subjective Notes Notes NONE History of Present Illness Hx of present illness BETTER Vitals Vitals Vital Signs Date Time Temp Pulse Resp B/P (MAP) Pulse Ox O2 Delivery O2 Flow Rate FiO2 09/02/18 10:11 84 166/71 09/02/18 08:12 96 Room Air 09/02/18 08:00 2.0 09/02/18 07:15 98.5 18 98.5 Weight Weight [ ] I.O. Intake and Output Intake and Output 09/02/18 07:00 Intake Total 900 ml Output Total 1200 ml Balance -300 ml Intake Oral 550 ml Tube Feeding 350 ml Output Urine Total 1200 ml # Voids 7 # Bowel Movements 2 Labs Labs Laboratory Tests Test 09/01/18 11:30 09/01/18 16:52 09/01/18 19:53 09/02/18 03:05 Glucose (Fingerstick) 153 mg/dL (70-99) 241 mg/dL (70-99) 260 mg/dL (70-99) Sodium Level 139 mmol/L (136-145) Potassium Level 4.4 mmol/L (3.5-5.1) Chloride Level 104 mmol/L (98-107) Carbon Dioxide Level 27 mmol/L (21-32) Anion Gap 8 (6-14) Blood Urea Nitrogen 25 mg/dL (7-20) Creatinine 1.1 mg/dL (0.6-1.0) Estimated GFR (Cockcroft-Gault) 48.6 Glucose Level 149 mg/dL (70-99) Calcium Level 9.5 mg/dL (8.5-10.1) Creatine Kinase 284 U/L (26-192) Test 09/02/18 07:11 Glucose (Fingerstick) 85 mg/dL (70-99) Micro Micro Microbiology 08/29/18 Urine Culture - Final, Complete 08/29/18 Urine Culture Result 1 (SABINO) - Final, Complete Review of Systems Constitutional: yes: alert, oriented Ears/Nose/Throat: Yes: no symptom reported Eyes: Yes: no symptom reported Pulmonary: Yes no symptom reported Cardiovascular: Yes no symptom reported Gastrointestional: Yes: no symptom reported Genitourinary: Yes: no symptom reported Musculoskeletal: Yes: no symptom reported Skin: Yes no symptom reported Psychiatric/Neurological: Yes: no symptom reported Endocrine: Yes: no symptom reported Physical Exam General Appearance: no apparent distress Skin: warm Respiratory: bilateral CTA Heart: S1S2 Abdomen: soft, bowel sounds present Genitourinary: bladder flat Extremities: pulses present Neurology: alert Assessment Assessment IMP CKD STAGE 3 WITH CR OF 1.1 URINARY TRACT INFECTION DECONDITIONING SPINAL STENOSIS SYNCOPE INCREASED CPK-IMPROVED DM II WITH HYPOGLYCEMIA HYPOKALEMIA-CORRECTED ENCEPHALOPATHY PLAN ANTIBIOTICS HYDRATION THERAPY WILL SIGN OFF PLEASE CALL IF NEEDED EVA MCKAY MD September 02, 2018 11:25
--- NOTE | 2018-09-02 13:15 | NUR ---
SW following pt. Pt agreeable with [facility]. Orders faxed and spoke with Azalia at [facility]. Pt's choice and rights forms verbally consented and copies on chart. Pt reported she will have transportation to take her home. Discussed with RN.
--- NOTE | 2018-09-02 13:35 | NUR ---
Discharge instructions and teaching given to patient and family member. Teaching given about new and discontinued medications. Patient verbalized understanding and is informed about the follow up for a CPK testing next week.
--- NOTE | 2018-09-02 13:40 | NUR ---
Discharge Note: LILLIAM LUX [facility]ANSON Discharge instructions and discharge home medications reviewed with Patient and a copy given. All questions have been answered and understanding verbalized. Discontinued lines and drains: Peripheral IV intact. Patient discharged to Home w/services with Family Member via Wheelchair.
[2018-09-02] MEDS ORDERED: ATORVASTATIN CALCIUM 40 MG TABLET. PO SCH (21:00)
== END 2018-09-02 13:40 | disposition home health service (06) | DRG 682 ==
LOC: ER 18:14 → 5 NORTH 20:30 → 6 SOUTH 08-30 11:43
PROVIDERS: ADMIT Family Medicine; ATTEND Family Medicine
DX: N17.0 Acute kidney failure with tubular necrosis (principal); G93.41 Metabolic encephalopathy; M62.82 Rhabdomyolysis; I50.30 Unspecified diastolic (congestive) heart failure; I13.0 Hypertensive heart and chronic kidney disease with heart failure and stage 1 through stage 4 chronic kidney disease, or unspecified chronic kidney disease; N39.0 Urinary tract infection, site not specified; G93.40 Encephalopathy, unspecified; E11.649 Type 2 diabetes mellitus with hypoglycemia without coma; N18.3 Chronic kidney disease, stage 3 (moderate); E11.22 Type 2 diabetes mellitus with diabetic chronic kidney disease; E11.42 Type 2 diabetes mellitus with diabetic polyneuropathy; E78.00 Pure hypercholesterolemia, unspecified; E78.5 Hyperlipidemia, unspecified; E87.6 Hypokalemia; F32.9 Major depressive disorder, single episode, unspecified; F41.9 Anxiety disorder, unspecified; G47.30 Sleep apnea, unspecified; G89.29 Other chronic pain; I25.10 Atherosclerotic heart disease of native coronary artery without angina pectoris; M17.0 Bilateral primary osteoarthritis of knee; M43.16 Spondylolisthesis, lumbar region; M48.061 Spinal stenosis, lumbar region without neurogenic claudication; J40 Bronchitis, not specified as acute or chronic; M51.36 Other intervertebral disc degeneration, lumbar region; M70.61 Trochanteric bursitis, right hip; M10.9 Gout, unspecified; E66.9 Obesity, unspecified; W18.39XA Other fall on same level, initial encounter; Z82.3 Family history of stroke; Z82.49 Family history of ischemic heart disease and other diseases of the circulatory system; Z86.73 Personal history of transient ischemic attack (TIA), and cerebral infarction without residual deficits; Z90.49 Acquired absence of other specified parts of digestive tract; Z90.710 Acquired absence of both cervix and uterus; Z87.440 Personal history of urinary (tract) infections; Z83.3 Family history of diabetes mellitus; Z88.0 Allergy status to penicillin; Z88.8 Allergy status to other drugs, medicaments and biological substances; Y93.89 Activity, other specified; Y92.89 Other specified places as the place of occurrence of the external cause; Y99.8 Other external cause status
CPT/HCPCS: 36415; 70450; 70551; 71045; 80048; 80053; 80069; 81001; 82550; 82962; 84484; 84550; 85025; 85610; 85651; 87086; 93005; 93306; 93880; 94640; 94760; J1815; J1956; J7030; J7512; J7620; 97110; 97116; 97530; 97535; 99285-25

== ENCOUNTER 2018-11-30 20:54 | Emergency (ER) | payer MEDICARE ==
[~2018-11-30] VITALS: Ht 142.2 cm; Wt 73.5 kg
[~2018-11-30 20:54] MED LIST changes: -DULO60CA44 PO; +DULO60CA45 PO; +ICOS1CAP PO; +NORT25CA PO; +PRED-220 PO; +PROAIR RESPICL90 MCG INH
[2018-11-30 21:04] VITALS: BP 147/63
--- NOTE | 2018-11-30 22:49 | PHYS DOC ---
Past Medical History Past Medical History: Diabetes-Type II, High Cholesterol, Hypertension, Renal Disease (SONDRA VAZQUEZ APRN) Past Surgical History: Appendectomy, Hysterectomy, Lumbar Laminectomy, Tonsillectomy Additional Past Surgical Histo: right foot, right rotator cuff; R ankle; left foot (SONDRA VAZQUEZ APRN) Alcohol Use: None Drug Use: None (SONDRA VAZQUEZ APRN) Adult General Chief Complaint Chief Complaint: MECHANICAL FALL HPI HPI Patient is a 73 year old [female] who presents with [right chest wall pain, right wrist pain, right knee pain. Patient reports she had been walking at home today, when she was dragging her feet [employer] carpet, her foot caught causing her to fall to the floor, landing on her right chest, and right wrist. Reports she has been falling a little more recently over the past several months, this was concerned because she continued to have pain in her ribs today. States she has not taken any additional medications today other than her normal prescribed medicines. States he was had little shortness of breath earlier but she believes it was just because of the pain in her ribs. Patient does complain of some pain in her right wrist mostly with movement, also states that when she was on her right knee she had a bruise that started to form. States she is walking as she normally does with a cane, denies additional discomfort complaints] (SONDRA VAZQUEZ APRN) Review of Systems Review of Systems Constitutional: Denies fever or chills [] Eyes: Denies change in visual acuity, redness, or eye pain [] HENT: Denies nasal congestion or sore throat [] Respiratory: Denies cough or shortness of breath [] Cardiovascular: No additional information not addressed in HPI [] GI: Denies abdominal pain, nausea, vomiting, bloody stools or diarrhea [] : Denies dysuria or hematuria [] Musculoskeletal: Denies back pain complains of right rib pain, right wrist pain, right knee pain. Denies decreased range of motion[] Integument: Denies rash or skin lesions [] Neurologic: Denies headache, focal weakness or sensory changes [] Endocrine: Denies polyuria or polydipsia [] All other systems were reviewed and found to be within normal limits, except as documented in this note. (SONDRA VAZQUEZ APRN) Allergies Allergies Allergies Coded Allergies Type Severity Reaction Last Updated Verified NSAIDS (Non-Steroidal Anti-Inflamma Allergy Intermediate 09/13/16 Yes aspirin Allergy Intermediate 10/17/14 Yes diphenhydramine Allergy Intermediate hives 09/13/16 Yes morphine Allergy Intermediate 10/15/14 Yes Penicillins Allergy Unknown 09/13/16 Yes (YELENA CAMEJO MD) Physical Exam Physical Exam Constitutional: Well developed, well nourished, no acute distress, non-toxic appearance. [] HENT: Normocephalic, atraumatic, bilateral external ears normal, oropharynx moist, no oral exudates, nose normal. [] Eyes: PERRLA, EOMI, conjunctiva normal, no discharge. [] Neck: Normal range of motion, no tenderness, supple, no stridor. [] Cardiovascular:Heart rate regular rhythm, no murmur [] Lungs & Thorax: Bilateral breath sounds clear to auscultation. Tenderness on palpation to right lateral ribs [] Abdomen: Bowel sounds normal, soft, no tenderness, no masses, no pulsatile masses. [] Skin: Warm, dry, no erythema, no rash. [] Back: No tenderness, no CVA tenderness. [] Extremities: No tenderness, no cyanosis, no clubbing, ROM intact, no edema. Right lower extremity with noted edema, larger than left, this is reportedly normal for patient. Bruising noted to left medial knee, minimal tenderness. Full range of motion, full strength in the. Full range of motion and full strength in right wrist, tenderness on palpation to distal radial aspect. [] Neurologic: Alert and oriented X 3, normal motor function, normal sensory function, no focal deficits noted. [] Psychologic: Affect normal, judgement normal, mood normal. [] (SONDRA VAZQUEZ APRN) Current Patient Data Vital Signs Vital Signs Date Time Temp Pulse Resp B/P (MAP) Pulse Ox O2 Delivery O2 Flow Rate FiO2 11/30/18 21:04 97.7 96 16 147/63 (91) 95 Room Air 97.7 (YELENA CAMEJO MD) EKG EKG [] (SONDRA VAZQUEZ APRN) Radiology/Procedures Radiology/Procedures Images per Dr Colindres - No acute fractures noted to wrist. No acute fracture or pneumothorax noted to right chest or ribs. [] (SONDRA VAZQUEZ APRN) Course & Med Decision Making Course & Med Decision Making Pertinent Labs and Imaging studies reviewed. (See chart for details) [Discussed imaging with patient, discussed results. Discussed no fracture. Discussed continued use of Tylenol, home pain medications, follow-up with primary care provider] (SONDRA VAZQUEZ APRN) Course & Med Decision Making Staff Physician Addendum: I was working in the ER during the course of this patient's visit. I was available for consultation as needed, but I was not directly involved in the care of this patient. (YELENA CAMEJO MD) Dragon Disclaimer Dragon Disclaimer This electronic medical record was generated, in whole or in part, using a voice recognition dictation system. (SONDRA VAZQUEZ APRN) Departure Departure Impression: Primary Impression: Contusion of rib on right side Additional Impressions: Wrist contusion Knee contusion Disposition: HOME, SELF-CARE Condition: GOOD Referrals: IMER ABRAMS MD (PCP) Patient Instructions: Rib Contusion Additional Instructions: As we discussed he can take 1 of her pain medications at home. The Flexeril may not be as beneficial, as most her discomfort is related to bone discomfort and not muscle discomfort. Follow-up with her primary care provider as needed, continue to put ice on your areas of discomfort tonight. Problem Qualifiers Primary Impression: Contusion of rib on right side Encounter type: initial encounter Qualified Codes: S20.211A - Contusion of right front wall of thorax, initial encounter Additional Impressions: Wrist contusion Encounter type: initial encounter Laterality: right Qualified Codes: S60.211A - Contusion of right wrist, initial encounter Knee contusion Encounter type: initial encounter Laterality: right Qualified Codes: S80.01XA - Contusion of right knee, initial encounter SONDRA VAZQUEZ APRN Nov 30, 2018 22:49 YELENA CAMEJO MD Dec 01, 2018 23:05
--- NOTE | 2018-12-01 08:03 | RAD ---
Examination: WRIST 3V RIGHT History: Fall, pain Comparison/Correlation: None Findings: Total 3 images of the right wrist were obtained. Significant osteopenia is present. Advanced first carpometacarpal joint degenerative remodeling and spurring noted. Advanced interphalangeal joint degenerative narrowing, remodeling, and spurring noted. Spurring of the first metacarpal head noted. No displaced fracture or bony destruction. Soft tissue swelling posterior to the metacarpal phalangeal joints is suggested on the lateral view. Impression: Marked osteopenia. Degenerative change. No displaced fracture. Consider further imaging if occult fracture is a persistent concern. Electronically signed by: Jan Reza MD (12/01/2018 8:01 AM) [facility]
--- NOTE | 2018-12-01 08:06 | RAD ---
RIBS RIGHT AND PA CHEST History: Fall right rib pain. Comparison: August 29, 2018 Findings: Low lung volumes. Stable heart size. No pleural effusion. Right basilar subsegmental atelectasis which improves on oblique views. Minimal left basilar subsegmental atelectasis. No displaced rib fractures. No pneumothorax. Bilateral acromioclavicular DJD. Impression: 1. Low lung volumes with bibasilar subsegmental atelectasis. 2. No displaced rib fractures. Electronically signed by: William Oden DO (12/01/2018 8:03 AM) [id number]
== END 2018-12-01 00:24 | disposition home or self-care (01) ==
LOC: ER 20:54
DX: S20.211A Contusion of right front wall of thorax, initial encounter (principal); S80.02XA Contusion of left knee, initial encounter; S60.211A Contusion of right wrist, initial encounter; E11.9 Type 2 diabetes mellitus without complications; E78.00 Pure hypercholesterolemia, unspecified; I10 Essential (primary) hypertension; Z88.8 Allergy status to other drugs, medicaments and biological substances; Z90.89 Acquired absence of other organs; Z90.710 Acquired absence of both cervix and uterus; Z88.5 Allergy status to narcotic agent; Z88.0 Allergy status to penicillin; W01.0XXA Fall on same level from slipping, tripping and stumbling without subsequent striking against object, initial encounter; Y93.01 Activity, walking, marching and hiking; Y92.008 Other place in unspecified non-institutional (private) residence as the place of occurrence of the external cause; Y99.8 Other external cause status
CPT/HCPCS: 71101; 73110; 99284

== ENCOUNTER 2020-09-13 15:36 | Emergency (ER) | payer MEDICARE ==
[~2020-09-13] VITALS: Ht 144.8 cm; Wt 72.2 kg
[~2020-09-13 15:36] MED LIST changes: +AMLO-187 PO; -AMLO10TA8 PO; +OXYB5TAB10 PO; -OXYB5TAB7 PO; +TRAZ-123 PO; -TRAZ-86 PO
--- NOTE | 2020-09-13 16:43 | PHYS DOC ---
Past Medical History Past Medical History: Diabetes-Type II, High Cholesterol, Hypertension, Renal Disease Past Surgical History: Appendectomy, Hysterectomy, Lumbar Laminectomy, Tonsillectomy Additional Past Surgical Histo: right foot, right rotator cuff; R ankle; left foot Smoking Status: Never Smoker Alcohol Use: None Drug Use: None General Adult EDM: Chief Complaint: MECHANICAL FALL HPI: HPI: Patient is a 75 year old female who was brought here by EMS from a local restaurant for evaluation of head injury. Patient was at a local restaurant to have dinner when she was walking she tripped on her feet and fell backward, hit the back of her head on a wooden trim. Patient denies any loss of consciousness, denies any hip pain, no back pain, no extremity pain. Patient denies any chest pain or any trouble breathing. Patient denies any neck pain, no upper or lower extremity weakness or numbness. Patient is not sure of her tetanus vaccination status Review of Systems: Review of Systems: Constitutional: Denies fever or chills. [] Eyes: Denies change in visual acuity. [] HENT: Denies nasal congestion or sore throat. [] Respiratory: Denies cough or shortness of breath. [] Cardiovascular: Denies chest pain or edema. [] GI: Denies abdominal pain, nausea, vomiting, bloody stools or diarrhea. [] : Denies dysuria. [] Musculoskeletal: Denies back pain or joint pain. [] Integument: Denies rash. POSITIVE FOR SCALP CONTUSION. Neurologic: POSITIVE FOR HEADACHE, focal weakness or sensory changes. [] Endocrine: Denies polyuria or polydipsia. [] Lymphatic: Denies swollen glands. [] Psychiatric: Denies depression or anxiety. [] Heart Score: C/O Chest Pain: N/A Risk Factors: Risk Factors: DM, Current or recent (<one month) smoker, HTN, HLP, family history of CAD, obesity. Risk Scores: Score 0 - 3: 2.5% MACE over next 6 weeks - Discharge Home Score 4 - 6: 20.3% MACE over next 6 weeks - Admit for Clinical Observation Score 7 - 10: 72.7% MACE over next 6 weeks - Early Invasive Strategies Allergies: Allergies: Allergies Coded Allergies Type Severity Reaction Last Updated Verified NSAIDS (Non-Steroidal Anti-Inflamma Allergy Intermediate 09/13/16 Yes aspirin Allergy Intermediate 10/17/14 Yes diphenhydramine Allergy Intermediate hives 09/13/16 Yes morphine Allergy Intermediate 10/15/14 Yes Penicillins Allergy Unknown 09/13/16 Yes Physical Exam: PE: Constitutional: Well developed, well nourished, no acute distress, non-toxic appearance. [] HENT:There is a 3 cm by 3 cm scalp contusion on left occipital area WITH 2 CM LACERATION, oozing out bright red blood, bilateral external ears normal, oropharynx moist, no oral exudates, nose normal. [] Eyes: PERRLA, EOMI, conjunctiva normal, no discharge. [] Neck: Normal range of motion, no tenderness, supple, no stridor. [] Cardiovascular:Heart rate regular rhythm, no murmur [] Lungs & Thorax: Bilateral breath sounds clear to auscultation [] Abdomen: Bowel sounds normal, soft, no tenderness, no masses, no pulsatile masses. [] Skin: Warm, dry, no erythema, no rash. [] Back: No tenderness, no CVA tenderness. [] Extremities: No tenderness, no cyanosis, no clubbing, ROM intact, no edema. [] Neurologic: Alert and oriented X 3, normal motor function, normal sensory fun ction, no focal deficits noted. [] Psychologic: Affect normal, judgement normal, mood normal. [] Current Patient Data: Vital Signs: Vital Signs Date Time Temp Pulse Resp B/P (MAP) Pulse Ox O2 Delivery O2 Flow Rate FiO2 09/13/20 16:21 97.6 73 20 163/65 (97) 96 Room Air 97.6 EKG: EKG: [] Radiology/Procedures: Radiology/Procedures: [][facility] [address] [place], [place] [id number] IMAGING REPORT Signed PATIENT: LILLIAM LUX ACCOUNT: [id number] : 1945 LOCATION: ER AGE: 75 SEX: F EXAM STATUS: REG ER ORD. PHYSICIAN: CHARLOTTE BRADY DO REASON: fell, head injury, neck pain PROCEDURE: CT HEAD AND CERVICAL SPINE WO EXAM: CT HEAD WITHOUT IV CONTRAST CLINICAL HISTORY: Reason: fell, head injury, neck pain / Spl. Instructions: / History: COMPARISON: None. TECHNIQUE: Routine CT of the head without contrast. Soft tissues and bone windows were reviewed. PQRS compliance statement - One or more of the following individualized dose reduction techniques were utilized for this study: 1. Automated exposure control 2. Adjustment of the mA and/or kV according to patient size 3. Use of iterative reconstruction technique FINDINGS: There is no evidence of hemorrhage, mass or extra-axial fluid collection. Sykes-white differentiation is maintained with no evidence of edema. Subcortical and periventricular as well as deep white matter foci of hypoattenuation likely changes of chronic small vessel disease. There is no mass effect or shift of the intracranial structures. The ventricles, basilar cisterns and cortical sulci are normal in size and configuration for the patients stated age. The cerebellum and brainstem are unremarkable. The calvarium demonstrates no evidence of fracture or focal lesion. Scalp hematoma left posterior parietal region. There is normal aeration of the visualized paranasal sinuses and mastoid air cells. The visualized portions of the orbits are normal. Atherosclerotic calcifications of the intracranial internal carotid and vertebral arteries is seen. IMPRESSION: No evidence for acute intracranial process. White matter changes likely chronic small vessel disease. Scalp hematoma left high parietal region posteriorly. EXAM: CT CERVICAL SPINE WITHOUT IV CONTRAST CLINICAL HISTORY: Reason: fell, head injury, neck pain / Spl. Instructions: / History: COMPARISON: None available. TECHNIQUE: Helical CT of the cervical spine was performed. Axial, coronal and sagittal reformatted images were also performed. PQRS compliance statement - One or more of the following individualized dose reduction techniques were utilized for this study: 1. Automated exposure control 2. Adjustment of the mA and/or kV according to patient size 3. Use of iterative reconstruction technique FINDINGS: No acute fracture. Decreased bone mineral density. There is 2 mm anterolisthesis of C2 on C3. Smooth remodeling about the anterior arch of C1 and dens with small associated calcifications. Trace anterolisthesis of C7 on T1. Severe disc height loss at C4-5, C5-6, C6-7 and C7-T1. Mild disc height loss C3-4. Multilevel facet degenerative changes are seen. Vascular calcifications are seen. IMPRESSION: 1. Multilevel spondylosis as above comment most prominent at the atlantodental junction as well as multilevel intervertebral disc height loss. 2. Negative acute fracture. Electronically signed by: Manish Morgan MD (09/13/2020 4:54 PM) [facility] DICTATED and SIGNED BY: MANISH MORGAN MD DATE: 09/13/20 [id number] Laceration Procedure: Location: OCCIPITAL AREA Anesthesia: 10 ML 1% LIDOCAINE WITH EPI total lenght of laceration: 2 CM Number of sutures: 3 KAREN Suture Material: KAREN Technique: SIMPLE INTERUPTUS. Patient tolerated procedure well. The wound was dressed with: Course & Med Decision Making: Course & Med Decision Making Pertinent Labs and Imaging studies reviewed. (See chart for details) Patient is a 75-year-old female who presented to ER due to closed head injury, patient had a laceration on the scalp, it was repaired with stable. Patient was given tetanus booster, she was discharged home in stable condition. Dragon Disclaimer: Dragon Disclaimer: This electronic medical record was generated, in whole or in part, using a voice recognition dictation system. Departure Departure Impression: Primary Impression: Occipital scalp laceration Additional Impressions: Head injury Concussion Disposition: HOME / SELF CARE / HOMELESS Condition: STABLE Referrals: IMER ABRAMS MD (PCP) Follow up with your doctor in 7 days for staple removal. Patient Instructions: Concussion and Brain Injury, Laceration Care, Adult Additional Instructions: Thank you for visiting our Emergency Department. We appreciate you trusting us with your care. If any additional problems come up don't hesitate to return to visit us. Please follow up with your primary care provider so they can plan additional care if needed and know about the problem that you had. If symptoms worsen come back to the Emergency Department. Any concerning symptoms that start such as chest pain, shortness of air, weakness or numbness on one side of the body, running high fevers or any other concerning symptoms return to the ER. CHARLOTTE BRADY DO September 13, 2020 16:42
[2020-09-13] MEDS ORDERED: DIPH,PERTUSS(ACELL),TET VAC/PF 0.5 ML SYRINGE. VAX IM ONE (16:45)
--- NOTE | 2020-09-13 16:57 | RAD ---
EXAM: CT HEAD WITHOUT IV CONTRAST CLINICAL HISTORY: Reason: fell, head injury, neck pain / Spl. Instructions: / History: COMPARISON: None. TECHNIQUE: Routine CT of the head without contrast. Soft tissues and bone windows were reviewed. PQRS compliance statement - One or more of the following individualized dose reduction techniques wer e utilized for this study: 1. Automated exposure control 2. Adjustment of the mA and/or kV according to patient size 3. Use of iterative reconstruction technique FINDINGS: There is no evidence of hemorrhage, mass or extra-axial fluid collection. Sykes-white differentiation is maintained with no evidence of edema. Subcortical and periventricular a s well as deep white matter foci of hypoattenuation likely changes of chronic small vessel disease. There is no mass effect or shift of the intracranial structures. The ventricles, basilar cisterns and cortical sulci are normal in size and configuration for the angelica ents stated age. The cerebellum and brainstem are unremarkable. The calvarium demonstrates no evidence of fracture or focal lesion. Scalp hematoma left posterior par ietal region. There is normal aeration of the visualized paranasal sinuses and mastoid air cells. The visualized portions of the orbits are normal. Atherosclerotic calcifications of the intracranial internal carotid and vertebral arteries is seen. IMPRESSION: No evidence for acute intracranial process. White matter changes likely chronic small vessel disease. Scalp hematoma left high parietal region posteriorly. EXAM: CT CERVICAL SPINE WITHOUT IV CONTRAST CLINICAL HISTORY: Reason: fell, head injury, neck pain / Spl. Instructions: / History: COMPARISON: None available. TECHNIQUE: Helical CT of the cervical spine was performed. Axial, coronal and sagittal reformatted im ages were also performed. PQRS compliance statement - One or more of the following individualized dose reduction techniques wer e utilized for this study: 1. Automated exposure control 2. Adjustment of the mA and/or kV according to patient size 3. Use of iterative reconstruction technique FINDINGS: No acute fracture. Decreased bone mineral density. There is 2 mm anterolisthesis of C2 on C3. Smooth remodeling about the anterior arch of C1 and dens with small associated calcifications. Trace anterol isthesis of C7 on T1. Severe disc height loss at C4-5, C5-6, C6-7 and C7-T1. Mild disc height loss C3 -4. Multilevel facet degenerative changes are seen. Vascular calcifications are seen. IMPRESSION: 1. Multilevel spondylosis as above comment most prominent at the atlantodental junction as well as m ultilevel intervertebral disc height loss. 2. Negative acute fracture. Electronically signed by: Manish Devlin MD (09/13/2020 4:54 PM) [facility]
[2020-09-13 19:13] VITALS: BP 152/66
== END 2020-09-13 19:29 | disposition home or self-care (01) ==
LOC: ER 15:36
DX: S06.0X9A Concussion with loss of consciousness of unspecified duration, initial encounter (principal); S01.01XA Laceration without foreign body of scalp, initial encounter; E11.9 Type 2 diabetes mellitus without complications; E78.00 Pure hypercholesterolemia, unspecified; I10 Essential (primary) hypertension; Z88.0 Allergy status to penicillin; Z88.5 Allergy status to narcotic agent; Z88.6 Allergy status to analgesic agent; Z88.8 Allergy status to other drugs, medicaments and biological substances; W01.198A Fall on same level from slipping, tripping and stumbling with subsequent striking against other object, initial encounter; Y93.01 Activity, walking, marching and hiking; Y92.511 Restaurant or cafe as the place of occurrence of the external cause; Y99.8 Other external cause status
CPT/HCPCS: 12001; 70450; 72125; 90471; 90715; 99285-25

== ENCOUNTER 2020-09-14 12:43 | Emergency (ER) | payer MEDICARE ==
[~2020-09-14] VITALS: Ht 144.8 cm; Wt 72.2 kg
--- NOTE | 2020-09-14 13:45 | RAD ---
EXAM: 3 views of the left elbow DATE: 09/14/2020 1:10 PM INDICATION: Reason: pain fell / Spl. Instructions: / History: COMPARISON: No Prior FINDINGS: No elbow joint effusion. No acute fracture or dislocation. Mild soft tissue swelling about the dorsal left elbow IMPRESSION: Mild soft tissue swelling without acute fracture or dislocation. Electronically signed by: Manish Devlin MD (09/14/2020 1:42 PM) [facility]
--- NOTE | 2020-09-14 14:05 | RAD ---
EXAM: Head and cervical spine CT without contrast. HISTORY: Fall. TECHNIQUE: Computed tomographic images of the head and cervical spine were obtained without contrast. *One or more of the following individualized dose reduction techniques were utilized for this examina tion: 1. Automated exposure control. 2. Adjustment of the mA and/or kV according to patient size. 3. Use of iterative reconstruction technique. COMPARISON: 08/29/2018. FINDINGS: Head: There is no intracranial hemorrhage. There is no mass effect or midline shift. There is no hydr ocephalus. There is decreased attenuation within the cerebral white matter, likely due to chronic sma ll vessel disease. There is cerebral volume loss. There may be a small incidental arachnoid cyst with in the anterior medial left frontal lobe. There is a small left parietal scalp hematoma and laceratio n with overlying skin amanda. There is evidence of lens surgery. The paranasal sinuses mastoid air c ells are unremarkable. There is no suspicious calvarial lesion. Cervical spine: There is multilevel degenerative listhesis. There is severe degenerative endplate rem odeling with disc space narrowing and osteophytosis at multiple levels. There is severe multilevel fa cet arthropathy. No acute fracture is seen. There is heavily calcified atherosclerotic plaque involvi ng the carotid bifurcations. The lung apices are clear. The combination of degenerative changes resul ts in mild left foraminal stenosis at C2-C3, moderate right foraminal stenosis at C3-C4, severe right and moderate left foraminal stenosis at C4-C5, moderate to severe right and severe left foraminal st enosis at C5-C6 and moderate right and severe left foraminal stenosis at C6-C7. IMPRESSION: 1. No acute intracranial finding or acute cervical spine trauma. 2. Bilateral cerebral white changes, likely due to chronic small vessel disease. This is superimposed on cerebral volume loss. 3. Severe multilevel degenerative change involving the cervical spine, resulting in significant steno sis at the aforementioned levels. Electronically signed by: Fela Goldstein MD (09/14/2020 2:03 PM) [id number]
--- NOTE | 2020-09-14 14:10 | PHYS DOC ---
Past Medical History Past Medical History: Diabetes-Type II, High Cholesterol, Hypertension, Renal Disease Past Surgical History: Appendectomy, Hysterectomy, Lumbar Laminectomy, Tonsillectomy Additional Past Surgical Histo: right foot, right rotator cuff; R ankle; left foot Smoking Status: Never Smoker Alcohol Use: None Drug Use: None General Adult EDM: Chief Complaint: HEADACHE HPI: HPI: Patient is a 75 year old female with history of high cholesterol, hypertension, diabetes type 2, kidney disease, who presents to the ED today to be evaluated after falling. Patient states she was walking in her kitchen and tripped on a rug on the floor, she fell and hit her head on the countertop. Denies any loss of consciousness. She states she was seen in the ED yesterday after falling as well. She states she is on aspirin 81 mg. Patient is also complaining of left knee pain and left elbow pain. States the pain is mild only on range of motion and touching the elbows and knee. States the pain is relieved with no movement Review of Systems: Review of Systems: Constitutional: Denies fever or chills. [] Eyes: Denies change in visual acuity. [] HENT: Denies nasal congestion or sore throat. [] Respiratory: Denies cough or shortness of breath. [] Cardiovascular: Denies chest pain or edema. [] GI: Denies abdominal pain, nausea, vomiting, bloody stools or diarrhea. [] : Denies dysuria. [] Musculoskeletal: reports left elbow pain and left knee pain Integument: Denies rash. [] Neurologic: Reports falling and hitting her head, denies focal weakness or sen yue changes. [] Psychiatric: Denies depression or anxiety. [] Heart Score: C/O Chest Pain: N/A Risk Factors: Risk Factors: DM, Current or recent (<one month) smoker, HTN, HLP, family history of CAD, obesity. Risk Scores: Score 0 - 3: 2.5% MACE over next 6 weeks - Discharge Home Score 4 - 6: 20.3% MACE over next 6 weeks - Admit for Clinical Observation Score 7 - 10: 72.7% MACE over next 6 weeks - Early Invasive Strategies Allergies: Allergies: Allergies Coded Allergies Type Severity Reaction Last Updated Verified NSAIDS (Non-Steroidal Anti-Inflamma Allergy Intermediate 09/13/16 Yes aspirin Allergy Intermediate 10/17/14 Yes diphenhydramine Allergy Intermediate hives 09/13/16 Yes morphine Allergy Intermediate 10/15/14 Yes Penicillins Allergy Unknown 09/13/16 Yes Physical Exam: PE: Constitutional: Short stature. Well developed, well nourished, no acute distress, non-toxic appearance. [] HENT: Normocephalic, atraumatic, bilateral external ears normal, oropharynx moist, no oral exudates, nose normal. [] Eyes: PERRLA, EOMI, conjunctiva normal, no discharge. [] Neck: Normal range of motion, no tenderness, supple, no stridor. [] Cardiovascular:Heart rate regular rhythm, no murmur [] Lungs & Thorax: Bilateral breath sounds clear to auscultation [] Abdomen: Bowel sounds normal, soft, no tenderness, no masses, no pulsatile masses. [] Skin: Posterior scalp with 3 amanda from yesterday. There is bruising on the left parietal scalp. Back: No tenderness, no CVA tenderness. [] Extremities: Left upper extremity and left lower extremities with no obvious deformity. There is soft tissue swelling on the left elbow and left knee. There is bruising over the knee. Full range of motion to the left upper extremity and left knee. +2 left pedal pulse and left radial pulse. Cap refill less than 2 seconds to left fingers Neurologic: Alert and oriented X 3, normal motor function, normal sensory function, no focal deficits noted. Cranial nerves II through XII intact Psychologic: Affect normal, judgement normal, mood normal. [] Current Patient Data: Vital Signs: Vital Signs Date Time Temp Pulse Resp B/P (MAP) Pulse Ox O2 Delivery O2 Flow Rate FiO2 09/14/20 12:53 98.2 81 24 173/74 (107) 96 98.2 EKG: EKG: [] Radiology/Procedures: Radiology/Procedures: []PROCEDURE: KNEE LEFT 4V XR KNEE _4 VIEWS WITH PATELLA_LT History: Reason: pain fell / Spl. Instructions: / History: Technique: 4 views left knee Comparison: None. Findings: Normal alignment. No fracture. No significant knee joint effusion. Anterior knee soft tissue swelling. Dystrophic calcification adjacent to the medial femoral condyle. Vascular calcifications. Impression: 1. No acute osseous abnormality. 2. Anterior knee soft tissue swelling. Electronically signed by: William Oden DO (09/14/2020 2:07 PM) [id number] DICTATED and SIGNED BY: WILLIAM ODEN DO DATE: 09/14/20 [id number] PROCEDURE: CT HEAD AND CERVICAL SPINE WO EXAM: Head and cervical spine CT without contrast. HISTORY: Fall. TECHNIQUE: Computed tomographic images of the head and cervical spine were obtained without contrast. *One or more of the following individualized dose reduction techniques were utilized for this examination: 1. Automated exposure control. 2. Adjustment of the mA and/or kV according to patient size. 3. Use of iterative reconstruction technique. COMPARISON: 08/29/2018. FINDINGS: Head: There is no intracranial hemorrhage. There is no mass effect or midline shift. There is no hydrocephalus. There is decreased attenuation within the cerebral white matter, likely due to chronic small vessel disease. There is cerebral volume loss. There may be a small incidental arachnoid cyst within the anterior medial left frontal lobe. There is a small left parietal scalp hematoma and laceration with overlying skin amanda. There is evidence of lens surgery. The paranasal sinuses mastoid air cells are unremarkable. There is no suspicious calvarial lesion. Cervical spine: There is multilevel degenerative listhesis. There is severe degenerative endplate remodeling with disc space narrowing and osteophytosis at multiple levels. There is severe multilevel facet arthropathy. No acute fracture is seen. There is heavily calcified atherosclerotic plaque involving the carotid bifurcations. The lung apices are clear. The combination of degenerative changes results in mild left foraminal stenosis at C2-C3, moderate right foraminal stenosis at C3-C4, severe right and moderate left foraminal stenosis at C4-C5, moderate to severe right and severe left foraminal stenosis at C5-C6 and moderate right and severe left foraminal stenosis at C6-C7. IMPRESSION: 1. No acute intracranial finding or acute cervical spine trauma. 2. Bilateral cerebral white changes, likely due to chronic small vessel disease. This is superimposed on cerebral volume loss. 3. Severe multilevel degenerative change involving the cervical spine, resulting in significant stenosis at the aforementioned levels. Electronically signed by: Fela Reis MD (09/14/2020 2:03 PM) [id number] DICTATED and SIGNED BY: FELA REIS MD DATE: 09/14/20 [id number] 0 PROCEDURE: ELBOW LEFT 3V EXAM: 3 views of the left elbow DATE: 09/14/2020 1:10 PM INDICATION: Reason: pain fell / Spl. Instructions: / History: COMPARISON: No Prior FINDINGS: No elbow joint effusion. No acute fracture or dislocation. Mild soft tissue swelling about the dorsal left elbow IMPRESSION: Mild soft tissue swelling without acute fracture or dislocation. Electronically signed by: Manish Morgan MD (09/14/2020 1:42 PM) [facility] DI[facility]ATED and SIGNED BY: MANISH MORGAN MD DATE: 09/14/20 [id number] 0 Course & Med Decision Making: Course & Med Decision Making Pertinent Labs and Imaging studies reviewed. (See chart for details) This is a 75-year-old female patient presented to the ED today to be evaluated after falling again, patient was in the ED yesterday to be evaluated after falling. Patient tripped on area rug at home and fell hitting her head on the countertop. No loss of consciousness. Patient is complaining of head pain, left knee pain and left elbow pain. CT of the head and cervical spine are negative for any acute findings. Left elbow x-ray and left knee x-rays are negative. Discharge to home. Follow-up with primary care doctor. Instructed to remove all the rugs from the floor Tetanus is up to date, UA is negative. Dragon Disclaimer: Dragvika Disclaimer: This electronic medical record was generated, in whole or in part, using a voice recognition dictation system. Departure Departure Impression: Primary Impression: Fall Qualified Codes: W19.XXXA - Unspecified fall, initial encounter Additional Impressions: CHI (closed head injury) Qualified Codes: S09.90XA - Unspecified injury of head, initial encounter Contusion of elbow, left Qualified Codes: S50.02XA - Contusion of left elbow, initial encounter Contusion of knee, left Qualified Codes: S80.02XA - Contusion of left knee, initial encounter Disposition: HOME / SELF CARE / HOMELESS Condition: STABLE Referrals: IMER ABRAMS MD (PCP) please follow up as soon as possible Patient Instructions: Contusion, [id number], Fall Prevention and Home Safety, Head Injury, Adult Additional Instructions: You were evaluated in the emergency room after falling. Your CT of the head and cervical spine are negative for any acute findings. Your left elbow x-ray and left knee x-rays are negative for any acute findings. We highly recommend you remove all area rugs from your floors. Try and apply ice to the affected areas. Try and elevate the affected areas. Follow-up with your primary care doctor in the course of this week. Come back to the ED at any point symptoms worsen ALEXSANDRA HUMPHREY APRN September 14, 2020 14:10
[2020-09-14 15:57] LABS: BILIRUBIN,URINE NEGATIVE (NEG); CLARITY,URINE CLEAR; COLOR,URINE YELLOW; NITRITE,URINE NEGATIVE (NEG); PROTEIN,URINE NEGATIVE (NEG-TRACE); UROBILINOGEN,URINE 0.2 mg/dL (0.2 mg/dL)
[2020-09-14 16:05] LABS: BACTERIA,URINE 0 /HPF (0-FEW); RBC,URINE 0 /HPF (0-2); WBC,URINE 0 /HPF (0-4)
[2020-09-14 17:00] VITALS: BP 148/90
== END 2020-09-14 17:42 | disposition home or self-care (01) ==
LOC: ER 12:43
DX: S50.02XA Contusion of left elbow, initial encounter (principal); S80.02XA Contusion of left knee, initial encounter; R51.9 Headache, unspecified; S09.90XA Unspecified injury of head, initial encounter; E11.9 Type 2 diabetes mellitus without complications; E78.00 Pure hypercholesterolemia, unspecified; I10 Essential (primary) hypertension; Z88.0 Allergy status to penicillin; Z88.5 Allergy status to narcotic agent; Z88.6 Allergy status to analgesic agent; W18.39XA Other fall on same level, initial encounter; Y93.89 Activity, other specified; Y92.89 Other specified places as the place of occurrence of the external cause; Y99.8 Other external cause status
CPT/HCPCS: 70450; 72125; 73080; 73564; 81001; 99285-25